=== PATIENT | female | born 1945 | race Caucasian/White ===

== ENCOUNTER → 2017-06-30 16:00 | Outpatient (CLI) | payer MEDICARE, OTHER, SELFPAY | PROVIDERS: Family Provider Family Medicine; PCP Family Medicine; Visit Provider Nurse Practitioner | DX: E10.9 Type 1 diabetes mellitus without complications (principal); E78.5 Hyperlipidemia, unspecified ==

== ENCOUNTER → 2017-07-02 09:11 | Outpatient (CLI) | payer MEDICARE, OTHER, SELFPAY ==
[2017-07-02 11:06] LABS: Microalbumin,Random Urine 11.5 mg/L (NO RANGE EST.); Microalbumin:Creatinine Ratio 30.1 mg/g CRE (<30 mg/g CRE)
[2017-07-02 11:10] LABS: Hemoglobin A1c 14.7 % (4.2-6.3)
[2017-07-02 11:20] LABS: AST(SGOT) 19 U/L (15-37); Alanine Aminotransfer ALT/SGPT 27 U/L (13-56); Albumin, Serum 3.5 g/dL (3.2-5.0); Alkaline Phosphatase 98 U/L (45-117); Anion Gap 9 (5-15); BUN 18 mg/dL (7-18); BUN/Creat Ratio 19.7 RATIO (10-20); Calcium,Total 8.9 mg/dL (8.5-10.1); Chloride 102 mmol/L (98-107); Cholesterol 189 mg/dL (200); Creatinine, Serum 0.91 mg/dL (0.55-1.02); EST Glomerular Filtration Rate 64 mL/min (>60); Est Glom Filt Rate - Afr Amer 78 mL/min (>60); Globulin 3.4 g/dL (2.2-4.2); Glucose 178 mg/dL (74-106); High Density Lipoprotein 92 mg/dL; Potassium 3.7 mmol/L (3.5-5.1); Protein, Total 6.9 g/dL (6.4-8.2); Sodium Level 138 mmol/L (136-145); Triglycerides 119 mg/dL; Very Low Density Lipoprotein 24 mg/dL (5-40)
== END ==
PROVIDERS: Family Provider Family Medicine; PCP Family Medicine; Visit Provider Nurse Practitioner
DX: E10.9 Type 1 diabetes mellitus without complications (principal); E78.5 Hyperlipidemia, unspecified
CPT/HCPCS: 36415; 80053; 80061; 82043; 82570; 83036

== ENCOUNTER → 2017-12-12 07:00 | Outpatient (CLI) | payer MEDICARE, OTHER, SELFPAY ==
[2017-12-12 09:34] LABS: Microalbumin,Random Urine 13.7 mg/L (NO RANGE EST.); Microalbumin:Creatinine Ratio 21.5 mg/g CRE (<30 mg/g CRE)
[2017-12-12 09:43] LABS: AST(SGOT) 20 U/L (15-37); Alanine Aminotransfer ALT/SGPT 29 U/L (13-56); Albumin, Serum 3.3 g/dL (3.2-5.0); Alkaline Phosphatase 88 U/L (45-117); Anion Gap 7 (5-15); BUN 15 mg/dL (7-18); BUN/Creat Ratio 18.3 RATIO (10-20); Calcium,Total 8.8 mg/dL (8.5-10.1); Chloride 107 mmol/L (98-107); Creatinine, Serum 0.82 mg/dL (0.55-1.02); EST Glomerular Filtration Rate 73 mL/min (>60); Est Glom Filt Rate - Afr Amer 88 mL/min (>60); Globulin 3.3 g/dL (2.2-4.2); Glucose 166 mg/dL (74-106); Protein, Total 6.6 g/dL (6.4-8.2); Sodium Level 140 mmol/L (136-145)
[2017-12-12 09:51] LABS: Hemoglobin A1c 13.2 % (4.2-6.3)
== END ==
PROVIDERS: Family Provider Family Medicine; PCP Family Medicine; Visit Provider Nurse Practitioner
DX: E11.9 Type 2 diabetes mellitus without complications (principal); E10.9 Type 1 diabetes mellitus without complications
CPT/HCPCS: 36415; 80053; 82043; 82570; 83036

== ENCOUNTER 2018-01-22 17:24 | Inpatient (IN) | payer MEDICARE, OTHER, SELFPAY ==
[2018-01-22] VITALS (29 sets, daily range): BP systolic 53–118; BP diastolic 28–64; PULSE 61–99; RESP 12–18; TEMP 28.5–33.7; O2SAT 91–100; BMI 27.3; BMI 23.9; BMI 27.4
[2018-01-22] MEDS: Rocuronium Bromide 50 MG/5 ML Vial 80 MG IV (17:29)
[2018-01-22] MEDS: Etomidate 20 MG/10 ML Vial IV (17:29)
--- NOTE | 2018-01-22 17:31 | EKG12_ITS ---
Test Reason : UNRESPONSIVE Blood Pressure : / mmHG Vent. Rate : 061 BPM Atrial Rate : 061 BPM P-R Int : 244 ms QRS Dur : 102 ms QT Int : 528 ms P-R-T Axes : 078 085 070 degrees QTc Int : 531 ms Sinus rhythm with 1st degree A-V block Cannot rule out Anterior infarct , age undetermined Prolonged QT Abnormal ECG Confirmed by DAMARI HANDY, QIAN ([id number]), newspaper photo editor DAWN PARHAM ([id number]) on 01/25/2018 2:54:35 PM Referred By: ZEKE Confirmed By:QAIN WETZEL MD
--- NOTE | 2018-01-22 17:32 | CT_ITS ---
STUDY: CT BRAIN WITHOUT CONTRAST REASON FOR EXAM: Female, 72 years old. Unresponsive. Stroke alert. RADIATION DOSAGE (If Supplied By Facility): CTDIvol = ( 44.99 ) mGy, DLP = ( 745.49 ) mGycm TECHNIQUE: Transaxial CT imaging of the brain was performed without administration of intravenous contrast material. Individualized dose optimization techniques were used for this CT. COMPARISON: None. FINDINGS: There is no acute bleed or infarct. There are chronic ischemic and atrophic changes. The ventricles are normal in configuration. There is no hydrocephalus. There is mild mucosal hypertrophy in the ethmoid sinuses and right frontal sinus. There is total opacification of the right maxillary sinus. The mastoid air cells are well aerated. There is no skull fracture. CT/Brain/Head without Contrast IMPRESSION: No acute intracranial abnormality. Chronic ischemic and atrophic changes. Sinusitis. N.B. : The above information has been verbally conveyed by Jd Johnson to Mathieu Barnes on 01/22/2018 18:04:53 (ET). Electronically Signed: Jd Johnson, at 18:04 EDT Tel , Service support ,
[2018-01-22 17:48] LABS: Hematocrit 39.8 % (37-47); Hemoglobin 11.1 g/dl (12.0-15.0); Mean Corp Hgb Conc 27.9 g/gl (32-36); Mean Corpuscular Hgb 30.3 pg (27.0-32.0); Mean Corpuscular Volume 108.7 fL (81-99); Mean Platelet Vol. 9.9 fl (6.2-12.0); Platelet Count 350 K/mm3 (150-450); RBC Distribution Width CV 14.4 % (11.6-14.6); RBC Distribution Width SD 57.2 fl (35.1-43.9); Red Blood Count 3.66 M/mm3 (4.2-5.4)
[2018-01-22 17:49] LABS: POSITIVE COUNT NO; POSITIVE DIFFERENTIAL NO; POSITIVE MORPHOLOGY NO
[2018-01-22 18:04] LABS: International Normalized Ratio 1.4; Prothrombin Time (Protime)PT. 17.1 SECONDS (11.7-14.9)
[2018-01-22] MEDS: 0.9% Normal Saline 1,000 ML 999 ML IV ×3 (18:11→18:28)
--- NOTE | 2018-01-22 18:15 | RAD_ITS ---
STUDY: X-RAY CHEST REASON FOR EXAM: Female, 72 years old. Intubation TECHNIQUE: Frontal view of the chest COMPARISON: 10/22/2014 FINDINGS: There is an endotracheal tube noted with its tip approximately 2 cm above the octavio. There is a right-sided central line with its tip in the superior vena cava. The enteric tube noted with its tip in the stomach. The lungs are clear. There are no pleural effusions. There is no pneumothorax. The heart is normal in size. The visualized osseous structures are within normal limits. RAD/Chest 1 View (Portable) IMPRESSION: Satisfactory position of the support lines and tubes. No acute thoracic pathology. Electronically Signed: Jd Johnson, at 18:58 EDT Tel , Service support ,
[2018-01-22 18:17] LABS: BUN 48 mg/dL (7-18); BUN/Creat Ratio 19.7 RATIO (10-20); Creatinine, Serum 2.44 mg/dL (0.55-1.02); EST Glomerular Filtration Rate 21 mL/min (>60); Est Glom Filt Rate - Afr Amer 25 mL/min (>60); Glucose 1143 mg/dL (74-106); Protein, Total 6.5 g/dL (6.4-8.2)
[2018-01-22 18:18] LABS: Mucous, Urine 0 SEEN /hpf (<or=2+); Red Blood Cells-Urine 0 SEEN /hpf (0-5)
[2018-01-22 18:18] LABS: ALB/GLOB Ratio 0.9 RATIO (0.9-2.4); AST(SGOT) 94 U/L (15-37); Alanine Aminotransfer ALT/SGPT 52 U/L (13-56); Alkaline Phosphatase 149 U/L (45-117); Anion Gap 29 (5-15); Calcium,Total 8.7 mg/dL (8.5-10.1); Chloride 96 mmol/L (98-107); Globulin 3.5 g/dL (2.2-4.2); Potassium 7.4 mmol/L (3.5-5.1); Sodium Level 130 mmol/L (136-145)
[2018-01-22 18:22] LABS: Color, Urine Yellow (Yellow); Glucose, Dipstick 1000 mg/dl (Normal); Leukocyte Esterase-Dipstick Negative /ul (Negative); Nitrite-Dipstick Negative (Negative); Occult Blood-Urine 250 /ul (Negative); Protein-Dipstick 30 mg/dl (Negative); Urine Bilirubin Dipstick Negative (Negative); Urine Clarity Clear (Clear); Urine Urobilinogen Normal (Normal)
[2018-01-22 18:34] LABS: CPK Total, Creatine Kinase 3020 U/L (26-192)
[2018-01-22 18:35] LABS: Base Excess < -30 mmol/L (-2 to +2); Bicarbonate 3.6 mmol/L (22-26); Blood Gas Specimen Type ART; FI02 100; Mode A-C; O2 Delivery Device Vent; PEEP 5; PO2 656 mmHG (75-100); RR 12; SITE L Femoral; SO2 100 % (95-99); Time Given 1815; Total Carbon Dioxide < 5 mmol/L; Vt 450; pCO2 31.4 mmHg (35-45); pH 6.67 (7.35-7.45)
[2018-01-22 18:37] LABS: Ketone-Dipstick 150 mg/dl (Negative)
[2018-01-22 18:40] LABS: Squamous Epithelial Cells - UA 0-5 SEEN /hpf (5-10); White Blood Cells 0-5 SEEN /hpf (0-5)
[2018-01-22 18:41] LABS: Amorphous Sediment 1+; Bacteria RARE /hpf (None Seen); Coarse Granular Cast 0-5 SEEN /lpf (0-5 /lpf)
[2018-01-22] MEDS: levoFLOXacin IV 500 MG/100 ML BAG 100 MG IV (18:51)
--- NOTE | 2018-01-22 19:18 | ED.RN ---
LAB CALLED WITH CRITICAL LAB RESULTS. LACTIC ACID 2.5. DR. ALANIS MADE AWARE. NO NEW ORDERS AT THIS TIME
[2018-01-22 19:19] LABS: Lactic Acid 2.5 mmol/L (0.4-2.0)
--- NOTE | 2018-01-22 19:27 | ED.VISSUMM ---
- ER Visit Summary Date of Service: 01/22/18 Chief Complaint: Unresponsive History of Present Illness: The patient is a 72 F who was last seen this morning around 0730. She was found this evening around 1700 hrs by family. She was unresponsive and seemed like she was agonal he breathing and they noted that she was mottled. EMS notes that she was hypothermic in the 80s on their temperature as well as having a blood sugar reading reading high. She is an insulin-dependent diabetic also with a history of upper cholesterolemia. Daughter states that unbeknownst to her until this evening her blood sugars have been running in the 4-500s for the past week. Physical Examination: Patient is hypotensive hypothermic at 82.3 via temperature sensitive fully. Gen: Well-nourished well-developed Head: Normocephalic atraumatic Eyes: Pupils are 4 mm and sluggishly reactive bilaterally ENT: TMs clear thick yellow nasal discharge from the right nares moist mucous membranes Neck: Supple no lymphadenopathy no JVD nontender CVS: Regular rate bradycardic rhythm no murmurs normal S1-S2 Respiratory: Kusmaul's respiration clear to auscultation bilaterally chest nontender Abdomen: Soft nontender nondistended normal bowel sounds no masses Back: Nontender Extremity: Nontender no edema Skin: Cold extremities with mottling erythema of the upper extremities and face Neuro: Patient is unresponsive. She withdraws to pain but does not localize Emergency Department Course and Treatment: EKG shows a sinus bradycardia at a rate of 61 with Anaya J waves. PH is 6.6. Blood sugar is greater than 1000. Evidence of acute kidney injury. Evidence of a mild rhabdomyolysis. Bicarbonate 3 on ABG. Initial potassium 7.4. Upon arrival in the emergency department patient underwent RSI using etomidate and rocuronium. A 7.5 endotracheal tube was placed on the first attempt without any difficulty and secured. Good color change and equal breath sounds bilaterally. Patient received warmed IV fluids (2.5 L bolus) followed by maintenance. She also was placed on a Stephy hugger. Patient was taken to the CT scanner where CT of the brain did not show any acute hemorrhage. Noted right maxillary sinusitis which coincides with the patient's physical exam findings despite the fluid bolus the patient continued to be hypotensive. A right IJ central line was placed under sterile ultrasound guidance obtained on the first attempt without any difficulty and sutured into place. There was noted venous bleeding around the wound and eventually hematoma. Chest x-ray confirms placement of endotracheal tube as well as OG tube and central line and line was approved for use. Patient continued received IV fluid. In review of the patient's chart from 2016 she developed DKA after an episode of pharyngitis. With the physical exam finding of sinusitis and the CT findings is probable the patient has been battling a sinusitis resulting in hyperglycemia over the past week leading to DKA today. Patient received Levaquin due to penicillin allergy for the sinusitis. She was started on insulin drip and started on levophed. Patient will be admitted into the hospital to the ICU. Impression: 1. Diabetic ketoacidosis 2. Right maxillary sinusitis 3. Hypothermia 4. Rhabdomyolysis 5. Acute kidney injury 6. Intubation 7. Central line by physician 8. Critical care time 35 minutes This note was generated with [employer] dictation software. It may contain incorrect words, spelling, and punctuation that were not noted in review of the chart prior to signing ED Disposition - Plan for ED Patient: Chief Complaint: Unresponsive
--- NOTE | 2018-01-22 19:31 | PCM.HP.STD ---
Problem List (1) Respiratory failure Status: Acute Qualifiers: Chronicity: acute Respiratory failure complication: unspecified whether with hypoxia or hypercapnia Qualified Code(s): J96.00 - Acute respiratory failure, unspecified whether with hypoxia or hypercapnia (2) Metabolic acidosis Status: Acute (3) DKA (diabetic ketoacidoses) Status: Acute Qualifiers: Diabetes mellitus type: type 1 (4) Hypothermia Status: Acute Qualifiers: Encounter type: initial encounter Qualified Code(s): T68.XXXA - Hypothermia, initial encounter (5) Sinusitis Status: Acute Qualifiers: Sinusitis location: maxillary (6) Hyperkalemia Status: Acute (7) Rhabdomyolysis Status: Acute Qualifiers: Rhabdomyolysis type: traumatic Encounter type: initial encounter Qualified Code(s): T79.6XXA - Traumatic ischemia of muscle, initial encounter History of Present Illness Date of Admission: 01/22/18 Chief Complaint: found down. The patient is a 72 year old F who was found down at home. Patient was seen at roughly 07 30 this morning walking her dog by her daughter. Then at 1600, the daughter came back to check on her and found the patient face down with her head propped up on her arms and patient was unresponsive. Patient's house was in [facility] and the patient had taken off her pants and underwear. Daughter states that when patient goes into DKA she does get confused and does bizarre behavior similar to this but is never been found unresponsive before. Patient was brought to the emergency room and was found to be hypothermic with an initial temperature of 28.5 Celsius. Patient had a bear hugger placed and temperature has improved slightly to 29.2 Celsius. Bear hugger was applied. Patient was also hypotensive and received 3 L of fluid but still remained hypotensive in the 60s. Patient did have a right IJ triple-lumen catheter placed and has been started on levo fed. Patient did have some purulence noted to come out of her right nares. Patient was found to have sinusitis on her head CT. Patient has not required any sedation outside of the etomidate that she had received for her rapid sequence intubation. Daughter states that the patient's blood sugars have been very poorly controlled in 4 and 500 range prior to this after reviewing the patient's blood sugar logs after the patient came into the hospital. 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 Allergies Iodinated Contrast- Oral and IV Dye [Iodinated Contrast Media - IV Dye] Allergy (Mild, Verified 12/10/17 09:35) Rash face/chest very red Penicillins Allergy (Unknown, Verified 12/10/17 09:35) mother told her she was allergic mother told her she was allergic Sulfa (Sulfonamide Antibiotics) Allergy (Unknown, Verified 12/10/17 09:35) mother told her she was allergic mother told her she was allergic Home Medications: Ambulatory Orders Medication Instructions Recorded Aspirin [Aspirin, Baby] 81 mg PO QHS 04/23/14 Humalog U- 100 Insulin 100 unit/mL See Rx Instructions SC .COMPLEX 11/26/17 subcutaneous solution #20 ml NS Lantus U- 100 Insulin 100 unit/mL 20 unit SC QHS #10 ml NS 11/26/17 subcutaneous solution enalapril maleate 20 mg tablet 20 mg PO QHS #30 tab 11/26/17 Simvastatin 80 mg PO QHS 01/22/18 Surgical History: Surgical History (Last Reviewed 01/22/18 @ 19:39 by Jamar Saxena DO) removal of mole - L lower leg Surgical History: hysterectomy Psychiatric History: No pertinent psych hx Smoking Status: Never smoker Tobacco Use: Non-smoker - *Family History Maternal Family History: Family History (Last Reviewed 01/22/18 @ 19:39 by Jamar Saxena DO) Mother Diabetes Heart disease History Items: Diabetes Review of Systems Unable to obtain accurate/complete ROS d/t: Patient intubated and sedated and unable to provide any history. VTE Information - Inpt Only VTE Present on Admission: No VTE Mechan Device Prophylaxis: SCD's VTE Pharm Prophylaxis ordered?: No Reason prophylaxis not ordered:: Medical Contraindication Patient Problems: Active and Suspected Problems (Last Reviewed 12/10/17 @ 09:30 by Vicki Dominguez) Respiratory failure (Acute) Metabolic acidosis (Acute) DKA (diabetic ketoacidoses) (Acute) Hypothermia (Acute) Sinusitis (Acute) Hyperkalemia (Acute) Rhabdomyolysis (Acute) - Physical Exam General: - - Unresponsive. On mechanical ventilator. HEENT: Atraumatic, Normocephalic, - - Pupils fixed but not dilated. Absent corneal reflex. Oral: Moist Mucosa, No Gingival or Mucosal Lesions/ Ulcerations, - - Endotracheal tube and orogastric tube in place. Neck: No Nodes, Thyroid Normal Size and Texture Lungs: Diminished, - - Coarse breath sounds bilaterally Cardiovascular: Regular rate, Regular Rhythm, Normal S1, Normal S2, No murmurs Abdomen: Bowel Sounds Present, Soft, Non Tender, Non-Distended, No Hepato-splenomegaly Extremities: No edema, No Calf Tenderness Skin: No rashes, No breakdown Musculoskeletal: No Tenderness to Palpation of Joints or Extremities, No Muscle Wasting Neurological: - - Absent corneal reflex. No hyperreflexia noted. Vital Signs Temp Pulse Resp BP Pulse Ox 29.2 C L 68 18 78/46 L 97 01/22/18 19:08 01/22/18 19:08 01/22/18 19:08 01/22/18 19:08 01/22/18 19:08 Oxygen Delivery Method Mechanical Ventilator Weight: 72.4 kg Body Mass Index (BMI) 27.3 Finger Stick Blood Glucose 500 Laboratory Tests Past 24 Hrs 01/22/18 01/22/18 01/22/18 17:31 17:31 17:31 WBC 15.0 H RBC 3.66 L Hgb 11.1 L Hct 39.8 MCV 108.7 H MCH 30.3 MCHC 27.9 L RDW 14.4 RDW Differential 57.2 H Plt Count 350 MPV 9.9 Neut % (Auto) Not Reportable Absolute Neuts (auto) Not Reportable Total Counted Not Reportable PT 17.1 H INR 1.4 Fibrinogen Specimen Type Sample Site pH Bicarbonate Actual POC Total CO2 Base Excess O2 Saturation O2 % ABG pCO2 ABG pO2 Boyd Test Respiration Rate O2 Delivery Device Vent Mode Tidal Volume POC PEEP Blood Gas Notified Whom Blood Gas Notified Time Sodium 130 L Potassium 7.4 H* Chloride 96 L Carbon Dioxide 5.0 L* Anion Gap 29 H BUN 48 H Creatinine 2.44 H Estim Creat Clear Calc 18.00 Est GFR (MDRD) Af Amer 25 L Est GFR (MDRD) Non-Af 21 L BUN/Creatinine Ratio 19.7 Glucose 1143 H* Lactic Acid Calcium 8.7 Magnesium Total Bilirubin 0.20 AST 94 H ALT 52 Alkaline Phosphatase 149 H Total Creatine Kinase Troponin I 0.087 H Total Protein 6.5 Albumin 3.0 L Globulin 3.5 Albumin/Globulin Ratio 0.9 TSH Urine Color Urine Clarity Urine pH Ur Specific [place] Urine Protein Urine Glucose (UA) Urine Ketones Urine Occult Blood Urine Nitrite Urine Bilirubin Urine Urobilinogen Ur Leukocyte Esterase Urine RBC Urine WBC Ur Squamous Epith Cells Amorphous Sediment Urine Bacteria Coarse Granular Casts Urine Mucus Acetone Level 01/22/18 01/22/18 01/22/18 17:31 17:31 17:31 WBC RBC Hgb Hct MCV MCH MCHC RDW RDW Differential Plt Count MPV Neut % (Auto) Absolute Neuts (auto) Total Counted PT INR Fibrinogen Specimen Type Sample Site pH Bicarbonate Actual POC Total CO2 Base Excess O2 Saturation O2 % ABG pCO2 ABG pO2 Boyd Test Respiration Rate O2 Delivery Device Vent Mode Tidal Volume POC PEEP Blood Gas Notified Whom Blood Gas Notified Time Sodium Potassium Chloride Carbon Dioxide Anion Gap BUN Creatinine Estim Creat Clear Calc Est GFR (MDRD) Af Amer Est GFR (MDRD) Non-Af BUN/Creatinine Ratio Glucose Lactic Acid Cancelled Calcium Magnesium 4.0 H Total Bilirubin AST ALT Alkaline Phosphatase Total Creatine Kinase 3020 H Troponin I Total Protein Albumin Globulin Albumin/Globulin Ratio TSH Urine Color Urine Clarity Urine pH Ur Specific [place] Urine Protein Urine Glucose (UA) Urine Ketones Urine Occult Blood Urine Nitrite Urine Bilirubin Urine Urobilinogen Ur Leukocyte Esterase Urine RBC Urine WBC Ur Squamous Epith Cells Amorphous Sediment Urine Bacteria Coarse Granular Casts Urine Mucus Acetone Level 01/22/18 01/22/18 01/22/18 18:08 18:21 18:30 WBC RBC Hgb Hct MCV MCH MCHC RDW RDW Differential Plt Count MPV Neut % (Auto) Absolute Neuts (auto) Total Counted PT INR Fibrinogen Specimen Type ART Sample Site L Femoral pH 6.67 L* Bicarbonate Actual 3.6 L POC Total CO2 < 5 Base Excess < -30 L O2 Saturation 100 H O2 % 100 ABG pCO2 31.4 L ABG pO2 656 H* Boyd Test NA Respiration Rate 12 O2 Delivery Device Vent Vent Mode A-C Tidal Volume 450 POC PEEP 5 Blood Gas Notified Whom ED MD Blood Gas Notified Time 1815 Sodium Potassium Chloride Carbon Dioxide Anion Gap BUN Creatinine Estim Creat Clear Calc Est GFR (MDRD) Af Amer Est GFR (MDRD) Non-Af BUN/Creatinine Ratio Glucose Lactic Acid Calcium Magnesium Total Bilirubin AST ALT Alkaline Phosphatase Total Creatine Kinase Troponin I Total Protein Albumin Globulin Albumin/Globulin Ratio TSH Urine Color Yellow Urine Clarity Clear Urine pH 5.0 Ur Specific [place] 1.020 Urine Protein 30 H Urine Glucose (UA) 1000 H Urine Ketones 150 H Urine Occult Blood 250 H Urine Nitrite Negative Urine Bilirubin Negative Urine Urobilinogen Normal Ur Leukocyte Esterase Negative Urine RBC 0 SEEN Urine WBC 0-5 SEEN Ur Squamous Epith Cells 0-5 SEEN Amorphous Sediment 1+ Urine Bacteria RARE Coarse Granular Casts 0-5 SEEN Urine Mucus 0 SEEN Acetone Level MODERATE H 01/22/18 01/22/18 01/22/18 18:30 18:30 18:30 WBC RBC Hgb Hct MCV MCH MCHC RDW RDW Differential Plt Count MPV Neut % (Auto) Absolute Neuts (auto) Total Counted PT INR Fibrinogen Pending Specimen Type Sample Site pH Bicarbonate Actual POC Total CO2 Base Excess O2 Saturation O2 % ABG pCO2 ABG pO2 Boyd Test Respiration Rate O2 Delivery Device Vent Mode Tidal Volume POC PEEP Blood Gas Notified Whom Blood Gas Notified Time Sodium Potassium Chloride Carbon Dioxide Anion Gap BUN Creatinine Estim Creat Clear Calc Est GFR (MDRD) Af Amer Est GFR (MDRD) Non-Af BUN/Creatinine Ratio Glucose Lactic Acid 2.5 H Calcium Magnesium Total Bilirubin AST ALT Alkaline Phosphatase Total Creatine Kinase Troponin I Total Protein Albumin Globulin Albumin/Globulin Ratio TSH Pending Urine Color Urine Clarity Urine pH Ur Specific Mer[place]old Urine Protein Urine Glucose (UA) Urine Ketones Urine Occult Blood Urine Nitrite Urine Bilirubin Urine Urobilinogen Ur Leukocyte Esterase Urine RBC Urine WBC Ur Squamous Epith Cells Amorphous Sediment Urine Bacteria Coarse Granular Casts Urine Mucus Acetone Level Assessment/Plan All Active Problems (Last Reviewed 12/10/17 @ 09:30 by Vicki Dominguez) Respiratory failure (Acute) Metabolic acidosis (Acute) DKA (diabetic ketoacidoses) (Acute) Hypothermia (Acute) Sinusitis (Acute) Hyperkalemia (Acute) Rhabdomyolysis (Acute) DKA, type 1 (Acute) UTI (urinary tract infection) (Acute) 1. Presumed hypovolemic shock IV fluids On levophed 2. Metabolic encephalopathy May be related the patient's diabetic ketoacidosis, sinusitis Given the fact the patient was found down, cannot rule out anoxic encephalopathy Patient currently not on any sedation at this time but may need to be introduced at a later point if the patient does improve Consider EEG if no improvement 3. Diabetic ketoacidosis On insulin drip per DKA protocol Resume basal insulin once gap has been closed x2 Per the patient's daughter, on reviewing the patient's home logs, patient was having consistent blood sugars in the 4-500 range 4. Respiratory failure ABG consistent with metabolic acidosis with dominant respiratory acidosis. Patient was not noted to be hypoxic is not in the vital signs. ABG did not show any hypercapnia Patient intubated for airway protection. 5. Rhabdomyolysis Secondary to being down for up to potentially 8.5 hours IV fluids Reevaluate CPK 6. Metabolic acidosis Secondary to DKA and possible other medical derangements Follow-up lactic acid IV fluids and treat the underlying etiologies. 7. Hyperkalemia At least partially due to the patient's DKA and metabolic acidosis Follow-up serial BMPs Hold off on corrections at this time pending resolution of the acidosis 8. Sinusitis Total opacification of the right maxillary sinus Continue with Levaquin 9. Possible coagulopathy INR was 1.4 without her being on Coumadin Fibrinogen was normal Check d-dimer Concern is for underlying DIC There is some concern for some blood in her orogastric tube but will monitor her hemoglobin. 10. DVT prophylaxis with SCDs. Hold off on chemical prophylaxis concern for potential GI bleed and potential coagulopathy. 11. Prognosis guarded 12. Advanced care planning: Discussed with the patient's daughter, and expressed that the patient's prognosis is very guarded this time. She expressed understanding of that. Asked about CODE STATUS and states that the patient is DNR Comfort Care arrest. Tentative plan at this point time is to see the patient does overnight and see if there is been any noticeable improvements but if not then there may be additional conversations and nurse to hospice. The patient's daughter is an [employer] with hospice. Code Visit Inpatient E&M: 52079 Init Hosp L3
[2018-01-22 19:32] LABS: Thyroid Stim Hormone (TSH) 1.17 uIU/mL (0.358-3.74)
--- NOTE | 2018-01-22 19:36 | HP.PCM_ITS ---
Problem List (1) Respiratory failure Status: Acute Qualifiers: Chronicity: acute Respiratory failure complication: unspecified whether with hypoxia or hypercapnia Qualified Code(s): J96.00 - Acute respiratory failure, unspecified whether with hypoxia or hypercapnia (2) Metabolic acidosis Status: Acute (3) DKA (diabetic ketoacidoses) Status: Acute Qualifiers: Diabetes mellitus type: type 1 (4) Hypothermia Status: Acute Qualifiers: Encounter type: initial encounter Qualified Code(s): T68.XXXA - Hypothermia, initial encounter (5) Sinusitis Status: Acute Qualifiers: Sinusitis location: maxillary (6) Hyperkalemia Status: Acute (7) Rhabdomyolysis Status: Acute Qualifiers: Rhabdomyolysis type: traumatic Encounter type: initial encounter Qualified Code(s): T79.6XXA - Traumatic ischemia of muscle, initial encounter History of Present Illness Date of Admission: 01/22/18 Chief Complaint: found down. The patient is a 72 year old F who was found down at home. Patient was seen at roughly 07 30 this morning walking her dog by her daughter. Then at 1600, the daughter came back to check on her and found the patient face down with her head propped up on her arms and patient was unresponsive. Patient's house was in [facility] and the patient had taken off her pants and underwear. Daughter states that when patient goes into DKA she does get confused and does bizarre behavior similar to this but is never been found unresponsive before. Patient was brought to the emergency room and was found to be hypothermic with an initial temperature of 28.5 Celsius. Patient had a bear hugger placed and temperature has improved slightly to 29.2 Celsius. Bear hugger was applied. Patient was also hypotensive and received 3 L of fluid but still remained hypotensive in the 60s. Patient did have a right IJ triple-lumen catheter placed and has been started on levo fed. Patient did have some purulence noted to come out of her right nares. Patient was found to have sinusitis on her head CT. Patient has not required any sedation outside of the etomidate that she had received for her rapid sequence intubation. Daughter states that the patient's blood sugars have been very poorly controlled in 4 and 500 range prior to this after reviewing the patient's blood sugar logs after the patient came into the hospital. 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 Allergies Iodinated Contrast- Oral and IV Dye [Iodinated Contrast Media - IV Dye] Allergy (Mild, Verified 12/10/17 09:35) Rash face/chest very red Penicillins Allergy (Unknown, Verified 12/10/17 09:35) mother told her she was allergic mother told her she was allergic Sulfa (Sulfonamide Antibiotics) Allergy (Unknown, Verified 12/10/17 09:35) mother told her she was allergic mother told her she was allergic Home Medications: Ambulatory Orders Medication Instructions Recorded Aspirin [Aspirin, Baby] 81 mg PO QHS 04/23/14 Humalog U- 100 Insulin 100 unit/mL See Rx Instructions SC .COMPLEX 11/26/17 subcutaneous solution #20 ml NS Lantus U- 100 Insulin 100 unit/mL 20 unit SC QHS #10 ml NS 11/26/17 subcutaneous solution enalapril maleate 20 mg tablet 20 mg PO QHS #30 tab 11/26/17 Simvastatin 80 mg PO QHS 01/22/18 Surgical History: Surgical History (Last Reviewed 01/22/18 @ 19:39 by Jamar Saxena DO) removal of mole - L lower leg Surgical History: hysterectomy Psychiatric History: No pertinent psych hx Smoking Status: Never smoker Tobacco Use: Non-smoker - *Family History Maternal Family History: Family History (Last Reviewed 01/22/18 @ 19:39 by Jamar Saxena DO) Mother Diabetes Heart disease History Items: Diabetes Review of Systems Unable to obtain accurate/complete ROS d/t: Patient intubated and sedated and unable to provide any history. VTE Information - Inpt Only VTE Present on Admission: No VTE Mechan Device Prophylaxis: SCD's VTE Pharm Prophylaxis ordered?: No Reason prophylaxis not ordered:: Medical Contraindication Patient Problems: Active and Suspected Problems (Last Reviewed 12/10/17 @ 09:30 by Vicki Dominguez) Respiratory failure (Acute) Metabolic acidosis (Acute) DKA (diabetic ketoacidoses) (Acute) Hypothermia (Acute) Sinusitis (Acute) Hyperkalemia (Acute) Rhabdomyolysis (Acute) - Physical Exam General: - - Unresponsive. On mechanical ventilator. HEENT: Atraumatic, Normocephalic, - - Pupils fixed but not dilated. Absent corneal reflex. Oral: Moist Mucosa, No Gingival or Mucosal Lesions/ Ulcerations, - - Endotracheal tube and orogastric tube in place. Neck: No Nodes, Thyroid Normal Size and Texture Lungs: Diminished, - - Coarse breath sounds bilaterally Cardiovascular: Regular rate, Regular Rhythm, Normal S1, Normal S2, No murmurs Abdomen: Bowel Sounds Present, Soft, Non Tender, Non-Distended, No Hepato- splenomegaly Extremities: No edema, No Calf Tenderness Skin: No rashes, No breakdown Musculoskeletal: No Tenderness to Palpation of Joints or Extremities, No Muscle Wasting Neurological: - - Absent corneal reflex. No hyperreflexia noted. Vital Signs Temp Pulse Resp BP Pulse Ox 29.2 C L 68 18 78/46 L 97 01/22/18 19:08 01/22/18 19:08 01/22/18 19:08 01/22/18 19:08 01/22/18 19:08 Oxygen Delivery Method Mechanical Ventilator Weight: 72.4 kg Body Mass Index (BMI) 27.3 Finger Stick Blood Glucose 500 Laboratory Tests Past 24 Hrs 01/22/18 01/22/18 01/22/18 17:31 17:31 17:31 WBC 15.0 H RBC 3.66 L Hgb 11.1 L Hct 39.8 MCV 108.7 H MCH 30.3 MCHC 27.9 L RDW 14.4 RDW Differential 57.2 H Plt Count 350 MPV 9.9 Neut % (Auto) Not Reportable Absolute Neuts (auto) Not Reportable Total Counted Not Reportable PT 17.1 H INR 1.4 Fibrinogen Specimen Type Sample Site pH Bicarbonate Actual POC Total CO2 Base Excess O2 Saturation O2 % ABG pCO2 ABG pO2 Boyd Test Respiration Rate O2 Delivery Device Vent Mode Tidal Volume POC PEEP Blood Gas Notified Whom Blood Gas Notified Time Sodium 130 L Potassium 7.4 H* Chloride 96 L Carbon Dioxide 5.0 L* Anion Gap 29 H BUN 48 H Creatinine 2.44 H Estim Creat Clear Calc 18.00 Est GFR (MDRD) Af Amer 25 L Est GFR (MDRD) Non-Af 21 L BUN/Creatinine Ratio 19.7 Glucose 1143 H* Lactic Acid Calcium 8.7 Magnesium Total Bilirubin 0.20 AST 94 H ALT 52 Alkaline Phosphatase 149 H Total Creatine Kinase Troponin I 0.087 H Total Protein 6.5 Albumin 3.0 L Globulin 3.5 Albumin/Globulin Ratio 0.9 TSH Urine Color Urine Clarity Urine pH Ur Specific [place] Urine Protein Urine Glucose (UA) Urine Ketones Urine Occult Blood Urine Nitrite Urine Bilirubin Urine Urobilinogen Ur Leukocyte Esterase Urine RBC Urine WBC Ur Squamous Epith Cells Amorphous Sediment Urine Bacteria Coarse Granular Casts Urine Mucus Acetone Level 01/22/18 01/22/18 01/22/18 17:31 17:31 17:31 WBC RBC Hgb Hct MCV MCH MCHC RDW RDW Differential Plt Count MPV Neut % (Auto) Absolute Neuts (auto) Total Counted PT INR Fibrinogen Specimen Type Sample Site pH Bicarbonate Actual POC Total CO2 Base Excess O2 Saturation O2 % ABG pCO2 ABG pO2 Boyd Test Respiration Rate O2 Delivery Device Vent Mode Tidal Volume POC PEEP Blood Gas Notified Whom Blood Gas Notified Time Sodium Potassium Chloride Carbon Dioxide Anion Gap BUN Creatinine Estim Creat Clear Calc Est GFR (MDRD) Af Amer Est GFR (MDRD) Non-Af BUN/Creatinine Ratio Glucose Lactic Acid Cancelled Calcium Magnesium 4.0 H Total Bilirubin AST ALT Alkaline Phosphatase Total Creatine Kinase 3020 H Troponin I Total Protein Albumin Globulin Albumin/Globulin Ratio TSH Urine Color Urine Clarity Urine pH Ur Specific [place] Urine Protein Urine Glucose (UA) Urine Ketones Urine Occult Blood Urine Nitrite Urine Bilirubin Urine Urobilinogen Ur Leukocyte Esterase Urine RBC Urine WBC Ur Squamous Epith Cells Amorphous Sediment Urine Bacteria Coarse Granular Casts Urine Mucus Acetone Level 01/22/18 01/22/18 01/22/18 18:08 18:21 18:30 WBC RBC Hgb Hct MCV MCH MCHC RDW RDW Differential Plt Count MPV Neut % (Auto) Absolute Neuts (auto) Total Counted PT INR Fibrinogen Specimen Type ART Sample Site L Femoral pH 6.67 L* Bicarbonate Actual 3.6 L POC Total CO2 < 5 Base Excess < -30 L O2 Saturation 100 H O2 % 100 ABG pCO2 31.4 L ABG pO2 656 H* Boyd Test NA Respiration Rate 12 O2 Delivery Device Vent Vent Mode A-C Tidal Volume 450 POC PEEP 5 Blood Gas Notified Whom ED MD Blood Gas Notified Time 1815 Sodium Potassium Chloride Carbon Dioxide Anion Gap BUN Creatinine Estim Creat Clear Calc Est GFR (MDRD) Af Amer Est GFR (MDRD) Non-Af BUN/Creatinine Ratio Glucose Lactic Acid Calcium Magnesium Total Bilirubin AST ALT Alkaline Phosphatase Total Creatine Kinase Troponin I Total Protein Albumin Globulin Albumin/Globulin Ratio TSH Urine Color Yellow Urine Clarity Clear Urine pH 5.0 Ur Specific [place] 1.020 Urine Protein 30 H Urine Glucose (UA) 1000 H Urine Ketones 150 H Urine Occult Blood 250 H Urine Nitrite Negative Urine Bilirubin Negative Urine Urobilinogen Normal Ur Leukocyte Esterase Negative Urine RBC 0 SEEN Urine WBC 0-5 SEEN Ur Squamous Epith Cells 0-5 SEEN Amorphous Sediment 1+ Urine Bacteria RARE Coarse Granular Casts 0-5 SEEN Urine Mucus 0 SEEN Acetone Level MODERATE H 01/22/18 01/22/18 01/22/18 18:30 18:30 18:30 WBC RBC Hgb Hct MCV MCH MCHC RDW RDW Differential Plt Count MPV Neut % (Auto) Absolute Neuts (auto) Total Counted PT INR Fibrinogen Pending Specimen Type Sample Site pH Bicarbonate Actual POC Total CO2 Base Excess O2 Saturation O2 % ABG pCO2 ABG pO2 Boyd Test Respiration Rate O2 Delivery Device Vent Mode Tidal Volume POC PEEP Blood Gas Notified Whom Blood Gas Notified Time Sodium Potassium Chloride Carbon Dioxide Anion Gap BUN Creatinine Estim Creat Clear Calc Est GFR (MDRD) Af Amer Est GFR (MDRD) Non-Af BUN/Creatinine Ratio Glucose Lactic Acid 2.5 H Calcium Magnesium Total Bilirubin AST ALT Alkaline Phosphatase Total Creatine Kinase Troponin I Total Protein Albumin Globulin Albumin/Globulin Ratio TSH Pending Urine Color Urine Clarity Urine pH Ur Specific [place] Urine Protein Urine Glucose (UA) Urine Ketones Urine Occult Blood Urine Nitrite Urine Bilirubin Urine Urobilinogen Ur Leukocyte Esterase Urine RBC Urine WBC Ur Squamous Epith Cells Amorphous Sediment Urine Bacteria Coarse Granular Casts Urine Mucus Acetone Level Assessment/Plan All Active Problems (Last Reviewed 12/10/17 @ 09:30 by Vicki Dominguez) Respiratory failure (Acute) Metabolic acidosis (Acute) DKA (diabetic ketoacidoses) (Acute) Hypothermia (Acute) Sinusitis (Acute) Hyperkalemia (Acute) Rhabdomyolysis (Acute) DKA, type 1 (Acute) UTI (urinary tract infection) (Acute) 1. Presumed hypovolemic shock * IV fluids * On levophed 2. Metabolic encephalopathy * May be related the patient's diabetic ketoacidosis, sinusitis * Given the fact the patient was found down, cannot rule out anoxic encephalopathy * Patient currently not on any sedation at this time but may need to be introduced at a later point if the patient does improve * Consider EEG if no improvement 3. Diabetic ketoacidosis * On insulin drip per DKA protocol * Resume basal insulin once gap has been closed x2 * Per the patient's daughter, on reviewing the patient's home logs, patient was having consistent blood sugars in the 4-500 range 4. Respiratory failure * ABG consistent with metabolic acidosis with dominant respiratory acidosis. * Patient was not noted to be hypoxic is not in the vital signs. ABG did not show any hypercapnia * Patient intubated for airway protection. 5. Rhabdomyolysis * Secondary to being down for up to potentially 8.5 hours * IV fluids * Reevaluate CPK 6. Metabolic acidosis * Secondary to DKA and possible other medical derangements * Follow-up lactic acid * IV fluids and treat the underlying etiologies. 7. Hyperkalemia * At least partially due to the patient's DKA and metabolic acidosis * Follow-up serial BMPs * Hold off on corrections at this time pending resolution of the acidosis 8. Sinusitis * Total opacification of the right maxillary sinus * Continue with Levaquin 9. Possible coagulopathy * INR was 1.4 without her being on Coumadin * Fibrinogen was normal * Check d-dimer * Concern is for underlying DIC * There is some concern for some blood in her orogastric tube but will monitor her hemoglobin. 10. DVT prophylaxis with SCDs. Hold off on chemical prophylaxis concern for potential GI bleed and potential coagulopathy. 11. Prognosis guarded 12. Advanced care planning: Discussed with the patient's daughter, and expressed that the patient's prognosis is very guarded this time. She expressed understanding of that. Asked about CODE STATUS and states that the patient is DNR Comfort Care arrest. Tentative plan at this point time is to see the patient does overnight and see if there is been any noticeable improvements but if not then there may be additional conversations and nurse to hospice. The patient's daughter is an HALL COORDINATOR with hospice. Code Visit Inpatient E&M: 28162 Init Hosp L3
[2018-01-22 19:39] LABS: Fibrinogen 318 mg/dl (203-444)
[2018-01-22 19:45] LABS: Bedside Glucose > 500 mg/dL (70-110)
[2018-01-22 20:23] LABS: D-Dimer Quantitative (DVT/PE) 0.79 FEU/ug/m (0.27-0.49)
[2018-01-22 20:49] LABS: Anion Gap 26 (5-15); BUN 45 mg/dL (7-18); BUN/Creat Ratio 20.8 RATIO (10-20); Calcium,Total 7.2 mg/dL (8.5-10.1); Chloride 106 mmol/L (98-107); Creatinine, Serum 2.16 mg/dL (0.55-1.02); EST Glomerular Filtration Rate 24 mL/min (>60); Est Glom Filt Rate - Afr Amer 29 mL/min (>60); Estimated Creatinine Clearance 20.33 ml/min; Glucose 929 mg/dL (74-106); Potassium 6.4 mmol/L (3.5-5.1); Sodium Level 136 mmol/L (136-145)
[2018-01-22 20:52] LABS: Hemoglobin A1c 14.2 % (4.2-6.3)
[2018-01-22] MEDS: Lactated Ringers 1,000 ML 999 ML IV (21:10)
[2018-01-22 21:59] LABS: Glucose 886 mg/dL (74-106)
[2018-01-22] MEDS: Chlorhexidine 15 ML PO (21:59)
[2018-01-22 22:06] LABS: Bedside Glucose > 500 mg/dL (70-110)
[2018-01-22 22:06] LABS: Bedside Glucose > 500 mg/dL (70-110)
[2018-01-22] MEDS: Albuterol 2.5 MG/3 ML VIAL.NEB. INHALATION (22:59)
[2018-01-22 23:27] LABS: M R Staph aureus DNA By PCR Negative (Negative); Probe Check PASS; Specimen Processing Control PASS
[2018-01-22 23:41] LABS: Bedside Glucose > 500 mg/dL (70-110)
[2018-01-23] VITALS (91 sets, daily range): BP systolic 85–142; BP diastolic 40–111; PULSE 80–112; RESP 14–29; TEMP 34.6–38.3; O2SAT 98–100
[2018-01-23 00:01] LABS: Glucose 773 mg/dL (74-106)
[2018-01-23 00:33] LABS: Anion Gap 24 (5-15); BUN 46 mg/dL (7-18); BUN/Creat Ratio 21.8 RATIO (10-20); Calcium,Total 7.2 mg/dL (8.5-10.1); Chloride 108 mmol/L (98-107); Creatinine, Serum 2.11 mg/dL (0.55-1.02); EST Glomerular Filtration Rate 24 mL/min (>60); Est Glom Filt Rate - Afr Amer 30 mL/min (>60); Estimated Creatinine Clearance 20.81 ml/min; Glucose 744 mg/dL (74-106); Potassium 6.1 mmol/L (3.5-5.1); Sodium Level 138 mmol/L (136-145)
[2018-01-23 00:44] LABS: Lactic Acid 1.6 mmol/L (0.4-2.0)
[2018-01-23 01:25] LABS: Glucose 713 mg/dL (74-106)
[2018-01-23 01:42] LABS: CPK Total, Creatine Kinase 13894 U/L (26-192)
[2018-01-23] MEDS: 0.9% Normal Saline 1,000 ML 150 ML IV (01:54)
[2018-01-23] MEDS: Albuterol 2.5 MG/3 ML VIAL.NEB. INHALATION ×2 (02:39→06:29)
[2018-01-23 03:16] LABS: Hematocrit 36.8 % (37-47); Hemoglobin 11.3 g/dl (12.0-15.0); Mean Corp Hgb Conc 30.7 g/gl (32-36); Mean Corpuscular Hgb 29.9 pg (27.0-32.0); Mean Corpuscular Volume 97.4 fL (81-99); Mean Platelet Vol. 8.9 fl (6.2-12.0); Platelet Count 282 K/mm3 (150-450); RBC Distribution Width CV 13.9 % (11.6-14.6); RBC Distribution Width SD 50.2 fl (35.1-43.9); Red Blood Count 3.78 M/mm3 (4.2-5.4); Scan Indicated on CBC? Y/N NO; White Blood Count 11.4 K/mm3 (4.4-11.0)
[2018-01-23 03:31] LABS: Base Excess -26 mmol/L (-2 to +2); Bicarbonate 5.6 mmol/L (22-26); Blood Gas Specimen Type ART; FI02 25; Mode A-C; O2 Delivery Device Vent; PEEP 5; PO2 122 mmHG (75-100); RR 14; SITE L Radial; SO2 96 % (95-99); Time Given 321; Total Carbon Dioxide 6 mmol/L; Vt 450; pCO2 24.4 mmHg (35-45); pH 6.97 (7.35-7.45)
[2018-01-23 03:34] LABS: Anion Gap 23 (5-15); BUN 50 mg/dL (7-18); BUN/Creat Ratio 21.2 RATIO (10-20); Calcium,Total 7.3 mg/dL (8.5-10.1); Chloride 109 mmol/L (98-107); Creatinine, Serum 2.36 mg/dL (0.55-1.02); EST Glomerular Filtration Rate 22 mL/min (>60); Est Glom Filt Rate - Afr Amer 26 mL/min (>60); Estimated Creatinine Clearance 18.61 ml/min; Glucose 680 mg/dL (74-106); Potassium 5.9 mmol/L (3.5-5.1); Sodium Level 140 mmol/L (136-145)
[2018-01-23] MEDS: Sodium Bicarbonate 8.4% 50 ML Syringe 50 MEQ IV (04:02)
[2018-01-23 05:00] LABS: Bedside Glucose > 500 mg/dL (70-110)
[2018-01-23 06:01] LABS: Base Excess < -30 mmol/L (-2 to +2); Bicarbonate 2.7 mmol/L (22-26); Blood Gas Specimen Type ART; FI02 35; Mode A-C; O2 Delivery Device Vent; PEEP 5; PO2 223 mmHG (75-100); RR 14; SITE L Brachial; SO2 98 % (95-99); Time Given 2020; Total Carbon Dioxide < 5 mmol/L; Vt 450; pCO2 25.1 mmHg (35-45); pH 6.65 (7.35-7.45)
[2018-01-23 06:26] LABS: Bedside Glucose > 500 mg/dL (70-110)
[2018-01-23 06:26] LABS: Bedside Glucose > 500 mg/dL (70-110)
--- NOTE | 2018-01-23 06:43 | PCM.CON.CC ---
Reason for Consult Date of Consultation: 01/23/18 Reason for Consultation: Respiratory failure/septic shock History of Present Illness: The patient is a 72-year-old female, with a history as outlined below, who presented to the emergency department on January 22 after being found unresponsive by family members. The patient has a known history of exceedingly poorly controlled insulin-dependent diabetes mellitus, with a hemoglobin A1c of 14. History pertinent to the patient's hospitalization was obtained primarily via chart review, as the patient is currently intubated and there are no family members available at the bedside. On presentation to the emergency department, the patient was noted to be hypothermic with a temperature of 83 ?F. She was hypotensive with a blood pressure of 64/39 and hypoxic. She was noted to have agonal respirations. Initial laboratory evaluation revealed elevated white blood cell count of 15,000. Arterial blood gas revealed a pH of 6.67 with a corresponding PCO2 of 31 and PO2 of 656, after intubation. Chemistry profile revealed a sodium of 130, potassium of 7.4, bicarbonate of 5.0 and acute kidney injury with a creatinine of 2.4. Glucose was elevated to 1143. Serum lactate was elevated to 2.5. Initial troponin was elevated at 0.087. CK was also elevated to 3020. There was a moderate serum acetone level. Due to the patient's tenuous respiratory status and altered mentation, she was emergently intubated in the emergency department. She received supplemental IV fluid hydration, was placed on a Stephy hugger and a central line was placed. CT head revealed no acute intracranial pathology, with the exception of evidence of maxillary sinusitis. Initial plain film chest x-ray revealed no acute cardiopulmonary process. The patient was placed on empiric antibiotics and vasopressor support was initiated after the patient was noted to have persistent non-fluid responsive hypotension. 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 Allergies Iodinated Contrast- Oral and IV Dye [Iodinated Contrast Media - IV Dye] Allergy (Mild, Verified 12/10/17 09:35) Rash face/chest very red Penicillins Allergy (Unknown, Verified 12/10/17 09:35) mother told her she was allergic mother told her she was allergic Sulfa (Sulfonamide Antibiotics) Allergy (Unknown, Verified 12/10/17 09:35) mother told her she was allergic mother told her she was allergic Home Medications: Ambulatory Orders Medication Instructions Recorded Aspirin [Aspirin, Baby] 81 mg PO QHS 04/23/14 Humalog U- 100 Insulin 100 unit/mL See Rx Instructions SC .COMPLEX 11/26/17 subcutaneous solution #20 ml NS Lantus U- 100 Insulin 100 unit/mL 20 unit SC QHS #10 ml NS 11/26/17 subcutaneous solution enalapril maleate 20 mg tablet 20 mg PO QHS #30 tab 11/26/17 Simvastatin 80 mg PO QHS 01/22/18 Surgical History: Surgical History (Last Reviewed 01/22/18 @ 19:39 by Jamar Saxena DO) removal of mole - L lower leg Surgical History: hysterectomy Psychiatric History: No pertinent psych hx Smoking Status: Never smoker Tobacco Use: Non-smoker - *Family History Maternal Family History: Family History (Last Reviewed 01/22/18 @ 19:39 by Jamar Saxena DO) Mother Diabetes Heart disease History Items: Diabetes Patient Problems: Active and Suspected Problems (Last Reviewed 01/22/18 @ 19:39 by Jamar Saxena DO) Respiratory failure (Acute) Metabolic acidosis (Acute) DKA (diabetic ketoacidoses) (Acute) Hypothermia (Acute) Sinusitis (Acute) Hyperkalemia (Acute) Rhabdomyolysis (Acute) Objective: The patient's most recent lab work, culture data and imaging studies have all been personally reviewed. Blood and urine cultures are currently pending. - Physical Exam General: - - Currently intubated, sedated and mechanically ventilated. HEENT: Atraumatic, PERRLA, Normocephalic Oral: No Gingival or Mucosal Lesions/ Ulcerations, - - Endotracheal and OG tubes in place. Neck: Supple, No Nodes, Trachea Midline, - - Right IJ central venous catheter in place Lungs: - - Clear across anterior lung nava. Cardiovascular: Normal S1, Normal S2, No murmurs, Tachycardic Abdomen: Bowel Sounds Present, Soft, Non Tender Extremities: No clubbing, No cyanosis, No edema Skin: No breakdown Musculoskeletal: No Tenderness to Palpation of Joints or Extremities Lymphatic: No Cervical, Supraclavicular, or Inguinal Adenopathy Neurological: - - No focal neurological deficits. Currently sedated. Attempts to move extremities. Vital Signs Temp Pulse Resp BP Pulse Ox 99.2 F H 107 H 23 H 131/54 H 100 01/23/18 06:00 01/23/18 06:30 01/23/18 06:30 01/23/18 06:30 01/23/18 06:30 Oxygen Delivery Method Mechanical Ventilator Weight: 145 lb 11.609 oz Body Mass Index (BMI) 23.9 Finger Stick Blood Glucose 595 Intake and Output for Last 24 Hours 01/21/18 01/22/18 01/23/18 23:59 23:59 23:59 Intake Total 2830.3 / 2830.3 Output Total 1400 / 1400 Balance 1430.3 / 1430.3 Laboratory Tests Past 24 Hrs 01/22/18 01/22/18 01/22/18 17:31 17:31 17:31 WBC 15.0 H RBC 3.66 L Hgb 11.1 L Hct 39.8 MCV 108.7 H MCH 30.3 MCHC 27.9 L RDW 14.4 RDW Differential 57.2 H Plt Count 350 MPV 9.9 Neut % (Auto) Not Reportable Absolute Neuts (auto) Not Reportable Total Counted Not Reportable PT 17.1 H INR 1.4 Fibrinogen D-Dimer Quant (PE/DVT) Specimen Type Sample Site pH Bicarbonate Actual POC Total CO2 Base Excess O2 Saturation O2 % ABG pCO2 ABG pO2 Boyd Test Respiration Rate O2 Delivery Device Minute Volume Vent Mode Tidal Volume POC PEEP Blood Gas Notified Whom Blood Gas Notified Time Sodium 130 L Potassium 7.4 H* Chloride 96 L Carbon Dioxide 5.0 L* Anion Gap 29 H BUN 48 H Creatinine 2.44 H Estim Creat Clear Calc 18.00 Est GFR (MDRD) Af Amer 25 L Est GFR (MDRD) Non-Af 21 L BUN/Creatinine Ratio 19.7 Glucose 1143 H* Hemoglobin A1c Lactic Acid Calcium 8.7 Magnesium Total Bilirubin 0.20 AST 94 H ALT 52 Alkaline Phosphatase 149 H Total Creatine Kinase Troponin I 0.087 H Total Protein 6.5 Albumin 3.0 L Globulin 3.5 Albumin/Globulin Ratio 0.9 TSH Urine Color Urine Clarity Urine pH Ur Specific [place] Urine Protein Urine Glucose (UA) Urine Ketones Urine Occult Blood Urine Nitrite Urine Bilirubin Urine Urobilinogen Ur Leukocyte Esterase Urine RBC Urine WBC Ur Squamous Epith Cells Amorphous Sediment Urine Bacteria Coarse Granular Casts Urine Mucus Acetone Level MRSA (PCR) 01/22/18 01/22/18 01/22/18 17:31 17:31 17:31 WBC RBC Hgb Hct MCV MCH MCHC RDW RDW Differential Plt Count MPV Neut % (Auto) Absolute Neuts (auto) Total Counted PT INR Fibrinogen D-Dimer Quant (PE/DVT) Specimen Type Sample Site pH Bicarbonate Actual POC Total CO2 Base Excess O2 Saturation O2 % ABG pCO2 ABG pO2 Boyd Test Respiration Rate O2 Delivery Device Minute Volume Vent Mode Tidal Volume POC PEEP Blood Gas Notified Whom Blood Gas Notified Time Sodium Potassium Chloride Carbon Dioxide Anion Gap BUN Creatinine Estim Creat Clear Calc Est GFR (MDRD) Af Amer Est GFR (MDRD) Non-Af BUN/Creatinine Ratio Glucose Hemoglobin A1c Lactic Acid Cancelled Calcium Magnesium 4.0 H Total Bilirubin AST ALT Alkaline Phosphatase Total Creatine Kinase 3020 H Troponin I Total Protein Albumin Globulin Albumin/Globulin Ratio TSH Urine Color Urine Clarity Urine pH Ur Specific [place] Urine Protein Urine Glucose (UA) Urine Ketones Urine Occult Blood Urine Nitrite Urine Bilirubin Urine Urobilinogen Ur Leukocyte Esterase Urine RBC Urine WBC Ur Squamous Epith Cells Amorphous Sediment Urine Bacteria Coarse Granular Casts Urine Mucus Acetone Level MRSA (PCR) 01/22/18 01/22/18 01/22/18 18:08 18:21 18:30 WBC RBC Hgb Hct MCV MCH MCHC RDW RDW Differential Plt Count MPV Neut % (Auto) Absolute Neuts (auto) Total Counted PT INR Fibrinogen D-Dimer Quant (PE/DVT) Specimen Type ART Sample Site L Femoral pH 6.67 L* Bicarbonate Actual 3.6 L POC Total CO2 < 5 Base Excess < -30 L O2 Saturation 100 H O2 % 100 ABG pCO2 31.4 L ABG pO2 656 H* Boyd Test NA Respiration Rate 12 O2 Delivery Device Vent Minute Volume Vent Mode A-C Tidal Volume 450 POC PEEP 5 Blood Gas Notified Whom ED Blood Gas Notified Time 1815 Sodium Potassium Chloride Carbon Dioxide Anion Gap BUN Creatinine Estim Creat Clear Calc Est GFR (MDRD) Af Amer Est GFR (MDRD) Non-Af BUN/Creatinine Ratio Glucose Hemoglobin A1c Lactic Acid Calcium Magnesium Total Bilirubin AST ALT Alkaline Phosphatase Total Creatine Kinase Troponin I Total Protein Albumin Globulin Albumin/Globulin Ratio TSH Urine Color Yellow Urine Clarity Clear Urine pH 5.0 Ur Specific [place] 1.020 Urine Protein 30 H Urine Glucose (UA) 1000 H Urine Ketones 150 H Urine Occult Blood 250 H Urine Nitrite Negative Urine Bilirubin Negative Urine Urobilinogen Normal Ur Leukocyte Esterase Negative Urine RBC 0 SEEN Urine WBC 0-5 SEEN Ur Squamous Epith Cells 0-5 SEEN Amorphous Sediment 1+ Urine Bacteria RARE Coarse Granular Casts 0-5 SEEN Urine Mucus 0 SEEN Acetone Level MODERATE H MRSA (PCR) 01/22/18 01/22/18 01/22/18 18:30 18:30 18:30 WBC RBC Hgb Hct MCV MCH MCHC RDW RDW Differential Plt Count MPV Neut % (Auto) Absolute Neuts (auto) Total Counted PT INR Fibrinogen 318 D-Dimer Quant (PE/DVT) Specimen Type Sample Site pH Bicarbonate Actual POC Total CO2 Base Excess O2 Saturation O2 % ABG pCO2 ABG pO2 Boyd Test Respiration Rate O2 Delivery Device Minute Volume Vent Mode Tidal Volume POC PEEP Blood Gas Notified Whom Blood Gas Notified Time Sodium Potassium Chloride Carbon Dioxide Anion Gap BUN Creatinine Estim Creat Clear Calc Est GFR (MDRD) Af Amer Est GFR (MDRD) Non-Af BUN/Creatinine Ratio Glucose Hemoglobin A1c Lactic Acid 2.5 H Calcium Magnesium Total Bilirubin AST ALT Alkaline Phosphatase Total Creatine Kinase Troponin I Total Protein Albumin Globulin Albumin/Globulin Ratio TSH 1.17 Urine Color Urine Clarity Urine pH Ur Specific [place] Urine Protein Urine Glucose (UA) Urine Ketones Urine Occult Blood Urine Nitrite Urine Bilirubin Urine Urobilinogen Ur Leukocyte Esterase Urine RBC Urine WBC Ur Squamous Epith Cells Amorphous Sediment Urine Bacteria Coarse Granular Casts Urine Mucus Acetone Level MRSA (PCR) 01/22/18 01/22/18 01/22/18 18:30 20:15 20:15 WBC RBC Hgb Hct MCV MCH MCHC RDW RDW Differential Plt Count MPV Neut % (Auto) Absolute Neuts (auto) Total Counted PT INR Fibrinogen D-Dimer Quant (PE/DVT) 0.79 H* Specimen Type Sample Site pH Bicarbonate Actual POC Total CO2 Base Excess O2 Saturation O2 % ABG pCO2 ABG pO2 Boyd Test Respiration Rate O2 Delivery Device Minute Volume Vent Mode Tidal Volume POC PEEP Blood Gas Notified Whom Blood Gas Notified Time Sodium Potassium Chloride Carbon Dioxide Anion Gap BUN Creatinine Estim Creat Clear Calc Est GFR (MDRD) Af Amer Est GFR (MDRD) Non-Af BUN/Creatinine Ratio Glucose Hemoglobin A1c 14.2 H Lactic Acid Calcium Magnesium Total Bilirubin AST ALT Alkaline Phosphatase Total Creatine Kinase Troponin I 0.180 H Total Protein Albumin Globulin Albumin/Globulin Ratio TSH Urine Color Urine Clarity Urine pH Ur Specific [place] Urine Protein Urine Glucose (UA) Urine Ketones Urine Occult Blood Urine Nitrite Urine Bilirubin Urine Urobilinogen Ur Leukocyte Esterase Urine RBC Urine WBC Ur Squamous Epith Cells Amorphous Sediment Urine Bacteria Coarse Granular Casts Urine Mucus Acetone Level MRSA (PCR) 01/22/18 01/22/18 01/22/18 20:15 20:26 21:25 WBC RBC Hgb Hct MCV MCH MCHC RDW RDW Differential Plt Count MPV Neut % (Auto) Absolute Neuts (auto) Total Counted PT INR Fibrinogen D-Dimer Quant (PE/DVT) Specimen Type ART Sample Site L Brachial pH 6.65 L* Bicarbonate Actual 2.7 L POC Total CO2 < 5 Base Excess < -30 L O2 Saturation 98 O2 % 35 ABG pCO2 25.1 L ABG pO2 223 H Boyd Test Respiration Rate 14 O2 Delivery Device Vent Minute Volume 6.00 Vent Mode A-C Tidal Volume 450 POC PEEP 5 Blood Gas Notified Whom [facility] Blood Gas Notified Time 2019 Sodium 136 Potassium 6.4 H* Chloride 106 Carbon Dioxide 4.0 L* Anion Gap 26 H BUN 45 H Creatinine 2.16 H Estim Creat Clear Calc 20.33 Est GFR (MDRD) Af Amer 29 L Est GFR (MDRD) Non-Af 24 L BUN/Creatinine Ratio 20.8 H Glucose 929 H* 886 H* Hemoglobin A1c Lactic Acid Calcium 7.2 L Magnesium Total Bilirubin AST ALT Alkaline Phosphatase Total Creatine Kinase Troponin I Total Protein Albumin Globulin Albumin/Globulin Ratio TSH Urine Color Urine Clarity Urine pH Ur Specific [place] Urine Protein Urine Glucose (UA) Urine Ketones Urine Occult Blood Urine Nitrite Urine Bilirubin Urine Urobilinogen Ur Leukocyte Esterase Urine RBC Urine WBC Ur Squamous Epith Cells Amorphous Sediment Urine Bacteria Coarse Granular Casts Urine Mucus Acetone Level MRSA (PCR) 01/22/18 01/22/18 01/22/18 21:50 23:00 23:00 WBC RBC Hgb Hct MCV MCH MCHC RDW RDW Differential Plt Count MPV Neut % (Auto) Absolute Neuts (auto) Total Counted PT INR Fibrinogen D-Dimer Quant (PE/DVT) Specimen Type Sample Site pH Bicarbonate Actual POC Total CO2 Base Excess O2 Saturation O2 % ABG pCO2 ABG pO2 Boyd Test Respiration Rate O2 Delivery Device Minute Volume Vent Mode Tidal Volume POC PEEP Blood Gas Notified Whom Blood Gas Notified Time Sodium Potassium Chloride Carbon Dioxide Anion Gap BUN Creatinine Estim Creat Clear Calc Est GFR (MDRD) Af Amer Est GFR (MDRD) Non-Af BUN/Creatinine Ratio Glucose 773 H* Hemoglobin A1c Lactic Acid Calcium Magnesium Total Bilirubin AST ALT Alkaline Phosphatase Total Creatine Kinase Troponin I 0.276 H Total Protein Albumin Globulin Albumin/Globulin Ratio TSH Urine Color Urine Clarity Urine pH Ur Specific [place] Urine Protein Urine Glucose (UA) Urine Ketones Urine Occult Blood Urine Nitrite Urine Bilirubin Urine Urobilinogen Ur Leukocyte Esterase Urine RBC Urine WBC Ur Squamous Epith Cells Amorphous Sediment Urine Bacteria Coarse Granular Casts Urine Mucus Acetone Level MRSA (PCR) Negative 01/23/18 01/23/18 01/23/18 00:05 00:05 00:05 WBC RBC Hgb Hct MCV MCH MCHC RDW RDW Differential Plt Count MPV Neut % (Auto) Absolute Neuts (auto) Total Counted PT INR Fibrinogen D-Dimer Quant (PE/DVT) Specimen Type Sample Site pH Bicarbonate Actual POC Total CO2 Base Excess O2 Saturation O2 % ABG pCO2 ABG pO2 Boyd Test Respiration Rate O2 Delivery Device Minute Volume Vent Mode Tidal Volume POC PEEP Blood Gas Notified Whom Blood Gas Notified Time Sodium 138 Potassium 6.1 H* Chloride 108 H Carbon Dioxide 6.0 L* Anion Gap 24 H BUN 46 H Creatinine 2.11 H Estim Creat Clear Calc 20.81 Est GFR (MDRD) Af Amer 30 L Est GFR (MDRD) Non-Af 24 L BUN/Creatinine Ratio 21.8 H Glucose 744 H* Hemoglobin A1c Lactic Acid 1.6 Calcium 7.2 L Magnesium Total Bilirubin AST ALT Alkaline Phosphatase Total Creatine Kinase 80039 H Troponin I Total Protein Albumin Globulin Albumin/Globulin Ratio TSH Urine Color Urine Clarity Urine pH Ur Specific [place] Urine Protein Urine Glucose (UA) Urine Ketones Urine Occult Blood Urine Nitrite Urine Bilirubin Urine Urobilinogen Ur Leukocyte Esterase Urine RBC Urine WBC Ur Squamous Epith Cells Amorphous Sediment Urine Bacteria Coarse Granular Casts Urine Mucus Acetone Level MRSA (PCR) 10/10/0501/23/18 01/23/18 01:00 03:05 03:05 WBC 11.4 H RBC 3.78 L Hgb 11.3 L Hct 36.8 L MCV 97.4 MCH 29.9 MCHC 30.7 L RDW 13.9 RDW Differential 50.2 H Plt Count 282 MPV 8.9 Neut % (Auto) Absolute Neuts (auto) Total Counted PT INR Fibrinogen D-Dimer Quant (PE/DVT) Specimen Type Sample Site pH Bicarbonate Actual POC Total CO2 Base Excess O2 Saturation O2 % ABG pCO2 ABG pO2 Boyd Test Respiration Rate O2 Delivery Device Minute Volume Vent Mode Tidal Volume POC PEEP Blood Gas Notified Whom Blood Gas Notified Time Sodium 140 Potassium 5.9 H Chloride 109 H Carbon Dioxide 8.0 L* Anion Gap 23 H BUN 50 H Creatinine 2.36 H Estim Creat Clear Calc 18.61 Est GFR (MDRD) Af Amer 26 L Est GFR (MDRD) Non-Af 22 L BUN/Creatinine Ratio 21.2 H Glucose 713 H* 680 H* Hemoglobin A1c Lactic Acid Calcium 7.3 L Magnesium Total Bilirubin AST ALT Alkaline Phosphatase Total Creatine Kinase Troponin I Total Protein Albumin Globulin Albumin/Globulin Ratio TSH Urine Color Urine Clarity Urine pH Ur Specific [place] Urine Protein Urine Glucose (UA) Urine Ketones Urine Occult Blood Urine Nitrite Urine Bilirubin Urine Urobilinogen Ur Leukocyte Esterase Urine RBC Urine WBC Ur Squamous Epith Cells Amorphous Sediment Urine Bacteria Coarse Granular Casts Urine Mucus Acetone Level MRSA (PCR) 01/23/18 03:22 WBC RBC Hgb Hct MCV MCH MCHC RDW RDW Differential Plt Count MPV Neut % (Auto) Absolute Neuts (auto) Total Counted PT INR Fibrinogen D-Dimer Quant (PE/DVT) Specimen Type ART Sample Site L Radial pH 6.97 L* Bicarbonate Actual 5.6 L POC Total CO2 6 Base Excess -26 L O2 Saturation 96 O2 % 25 ABG pCO2 24.4 L ABG pO2 122 H Boyd Test Respiration Rate 14 O2 Delivery Device Vent Minute Volume 7.00 Vent Mode A-C Tidal Volume 450 POC PEEP 5 Blood Gas Notified Whom ICU MD Blood Gas Notified Time 321 Sodium Potassium Chloride Carbon Dioxide Anion Gap BUN Creatinine Estim Creat Clear Calc Est GFR (MDRD) Af Amer Est GFR (MDRD) Non-Af BUN/Creatinine Ratio Glucose Hemoglobin A1c Lactic Acid Calcium Magnesium Total Bilirubin AST ALT Alkaline Phosphatase Total Creatine Kinase Troponin I Total Protein Albumin Globulin Albumin/Globulin Ratio TSH Urine Color Urine Clarity Urine pH Ur Specific [place] Urine Protein Urine Glucose (UA) Urine Ketones Urine Occult Blood Urine Nitrite Urine Bilirubin Urine Urobilinogen Ur Leukocyte Esterase Urine RBC Urine WBC Ur Squamous Epith Cells Amorphous Sediment Urine Bacteria Coarse Granular Casts Urine Mucus Acetone Level MRSA (PCR) POC Glucose 01/23/18 01/23/18 01/23/18 05:59 05:01 03:01 POC Glucose > 500 H* > 500 H* > 500 H* 01/22/18 01/22/18 01/22/18 23:01 21:12 20:04 POC Glucose > 500 H* > 500 H* > 500 H* 01/22/18 18:07 POC Glucose > 500 H* Clinical Impression(s) from Imaging Studies Brain CT 01/22/18 17:32 IMPRESSION: No acute intracranial abnormality. Chronic ischemic and atrophic changes. Sinusitis. N.B. : The above information has been verbally conveyed by Jd Johnson to Mathieu Barnes on 01/22/2018 18:04:53 (ET). Electronically Signed: Jd Johnson, at 18:04 EDT Tel , Service support , Chest X-Ray 01/22/18 18:15 IMPRESSION: Satisfactory position of the support lines and tubes. No acute thoracic pathology. Electronically Signed: Jd Johnson, at 18:58 EDT Tel , Service support , Assessment/Plan Active and Suspected Problems (Last Reviewed 01/22/18 @ 19:39 by Jamar Saxena DO) Respiratory failure (Acute) Metabolic acidosis (Acute) DKA (diabetic ketoacidoses) (Acute) Hypothermia (Acute) Sinusitis (Acute) Hyperkalemia (Acute) Rhabdomyolysis (Acute) RECOMMENDATIONS: 1. Transition from normal saline to lactated Ringer's 2. Continue insulin drip until anion gap has been closed x2. 3. Initiate sedatives to maintain a RASS of -1 to 1. 4. Discontinue Levaquin and start meropenem. 5. Discontinue scheduled aerosol treatments. 6. Continue Levophed and vasopressin to maintain a mean arterial pressure at or above 65 mmHg. 7. Patient to remain n.p.o. for now. 8. Start Pepcid and heparin for GI and DVT prophylaxis, respectively. IMPRESSIONS: 1. Acute respiratory failure The patient was intubated upon arrival to the emergency department due to her state of encephalopathy likely precipitated by metabolic derangements in the setting of diabetic ketoacidosis. Her mentation is slowly improved with correction of her underlying metabolic derangements invasive mechanical ventilation. Plan to continue current supportive measures until the patient's metabolic derangements are completely corrected. Recommend checking respiratory viral panel. In addition, the patient should be started on Pepcid and subcutaneous heparin for appropriate ICU prophylaxis. 2. Hypovolemic versus septic shock The patient has been volume resuscitated, but remains persistently hypotensive requiring vasopressor support. She has a profound metabolic acidosis. If this does not begin to correct soon, she will be placed on a bicarb containing infusion until her pH is greater than 6.9. Repeat labs are currently pending. Continue current supportive measures with levo fed and vasopressin to maintain a mean arterial pressure at or above 65 mmHg. The patient's Levaquin will be broadened to meropenem, given her penicillin allergy. She did have sinusitis identified on CT head. However, her plain film chest x-ray did not reveal an acute cardiopulmonary process. Cultures are currently pending. We will also plan to check respiratory viral panel. 3. Metabolic encephalopathy The patient presents to the hospital with profound metabolic derangements in the setting of #4. She is a poorly controlled diabetic with a hemoglobin A1c of greater than 14. I anticipate improvement in her mentation as her underlying metabolic derangements are corrected. She will be maintained on sedation while mechanically ventilated in an attempt to maintain a RASS of -1 to 1. 4. Diabetic ketoacidosis Continue treatment per DKA protocol with IV volume resuscitation and continuous insulin infusion. The patient's insulin drip will be continued until anion gap has been closed x2. Patient to remain n.p.o. for now. Continue serial chemistry checks. 5. Acute kidney injury/rhabdomyolysis Likely multifactorial in etiology with prerenal azotemia/ischemic ATN combined with rhabdomyolysis contributing. Continue current supportive measures with volume expansion and vasopressor support to maintain hemodynamic stability. Continue to monitor CK levels periodically. Continue to monitor urine output. There is no current indication for renal replacement therapy. 6. Troponin elevation Likely secondary to demand ischemia in the setting of #2. Continue to trend troponins. Consider obtaining echocardiogram. TIME: 48 minutes of critical care time, independent of procedures, was spent addressing the patient's acute respiratory failure, hypovolemic/septic shock, metabolic encephalopathy, diabetic ketoacidosis, acute kidney injury, troponin elevation, review of all data and collaboration with the care team. ([id number]) Code Visit [id number]: [id number] Critical care first hour
[2018-01-23] MEDS: Lactated Ringers 1,000 ML 150 ML IV ×3 (07:11→20:16)
[2018-01-23] MEDS: Propofol 10MG/Ml 1,000 MG/100 ML Bottle 1.983 MG CONT INF (07:13)
[2018-01-23 07:35] LABS: Anion Gap 21 (5-15); BUN 49 mg/dL (7-18); Calcium,Total 7.1 mg/dL (8.5-10.1); Chloride 112 mmol/L (98-107); Creatinine, Serum 2.45 mg/dL (0.55-1.02); EST Glomerular Filtration Rate 21 mL/min (>60); Est Glom Filt Rate - Afr Amer 25 mL/min (>60); Estimated Creatinine Clearance 17.92 ml/min; Glucose 589 mg/dL (74-106); Potassium 4.7 mmol/L (3.5-5.1); Sodium Level 141 mmol/L (136-145); Triglycerides 199 mg/dL
[2018-01-23 08:26] LABS: Bedside Glucose 476 mg/dL (70-110)
[2018-01-23 08:26] LABS: Bedside Glucose 442 mg/dL (70-110)
--- NOTE | 2018-01-23 08:29 | PCM.PN.HOSP ---
Patient Problems: Active and Suspected Problems (Last Reviewed 01/22/18 @ 19:39 by Jamar Saxena DO) Respiratory failure (Acute) Metabolic acidosis (Acute) DKA (diabetic ketoacidoses) (Acute) Hypothermia (Acute) Sinusitis (Acute) Hyperkalemia (Acute) Rhabdomyolysis (Acute) Subjective: intubated and sedated. Agitated overnights, so started on propofol Vitals/I&O's: Vital Signs Temp Pulse Resp BP Pulse Ox 99.1 F 108 H 25 H 142/111 H 100 01/23/18 07:00 01/23/18 07:00 01/23/18 07:00 01/23/18 07:00 01/23/18 07:00 Oxygen Delivery Method Mechanical Ventilator Weight: 145 lb 11.609 oz Body Mass Index (BMI) 23.9 Finger Stick Blood Glucose 476 Intake and Output for Last 24 Hours 01/21/18 01/22/18 01/23/18 23:59 23:59 23:59 Intake Total 2830.3 / 2830.3 Output Total 1400 / 1400 Balance 1430.3 / 1430.3 General: No apparent distress, - - Intubated and sedated HEENT: Atraumatic, EOMI, Normocephalic Oral: Moist Mucosa Neck: No JVD Lungs: Normal air movement, - - Coarse Cardiovascular: Regular rate, Regular Rhythm, Normal S1, Normal S2, No murmurs Abdomen: Soft, Non-Distended, No Hepato-splenomegaly Extremities: Edema Skin: No rashes, No breakdown Laboratory Results 01/22/18 17:31: WBC 15.0 H, RBC 3.66 L, Hgb 11.1 L, Hct 39.8, MCV 108.7 H, MCH 30.3, MCHC 27.9 L, RDW 14.4, RDW Differential 57.2 H, Plt Count 350, MPV 9.9, Neut % (Auto) Not Reportable, Absolute Neuts (auto) Not Reportable, Total Counted Not Reportable 01/22/18 17:31: PT 17.1 H, INR 1.4 01/22/18 17:31: Sodium 130 L, Potassium 7.4 H*, Chloride 96 L, Carbon Dioxide 5.0 L*, Anion Gap 29 H, BUN 48 H, Creatinine 2.44 H, Estim Creat Clear Calc 18.00, Est GFR (MDRD) Af Amer 25 L, Est GFR (MDRD) Non-Af 21 L, BUN/Creatinine Ratio 19.7, Glucose 1143 H*, Calcium 8.7, Total Bilirubin 0.20, AST 94 H, ALT 52, Alkaline Phosphatase 149 H, Troponin I 0.087 H, Total Protein 6.5, Albumin 3.0 L, Globulin 3.5, Albumin/Globulin Ratio 0.9 01/22/18 17:31: Lactic Acid Cancelled 01/22/18 17:31: Magnesium 4.0 H 01/22/18 17:31: Total Creatine Kinase 3020 H 01/22/18 18:07: POC Glucose > 500 H* 01/22/18 18:08: Urine Color Yellow, Urine Clarity Clear, Urine pH 5.0, Ur Specific [place] 1.020, Urine Protein 30 H, Urine Glucose (UA) 1000 H, Urine Ketones 150 H, Urine Occult Blood 250 H, Urine Nitrite Negative, Urine Bilirubin Negative, Urine Urobilinogen Normal, Ur Leukocyte Esterase Negative, Urine RBC 0 SEEN, Urine WBC 0-5 SEEN, Ur Squamous Epith Cells 0-5 SEEN, Amorphous Sediment 1+, Urine Bacteria RARE, Coarse Granular Casts 0-5 SEEN, Urine Mucus 0 SEEN 01/22/18 18:21: Specimen Type ART, Sample Site L Femoral, pH 6.67 L*, Bicarbonate Actual 3.6 L, POC Total CO2 < 5, Base Excess < -30 L, O2 Saturation 100 H, O2 % 100, ABG pCO2 31.4 L, ABG pO2 656 H*, Boyd Test NA, Respiration Rate 12, O2 Delivery Device Vent, Vent Mode A-C, Tidal Volume 450, POC PEEP 5, Blood Gas Notified Whom ED , Blood Gas Notified Time 1815 01/22/18 18:30: Acetone Level MODERATE H 01/22/18 18:30: Lactic Acid 2.5 H 01/22/18 18:30: Fibrinogen 318 01/22/18 18:30: TSH 1.17 01/22/18 18:30: D-Dimer Quant (PE/DVT) 0.79 H* 01/22/18 20:04: POC Glucose > 500 H* 01/22/18 20:15: Hemoglobin A1c 14.2 H 01/22/18 20:15: Troponin I 0.180 H 01/22/18 20:15: Sodium 136, Potassium 6.4 H*, Chloride 106, Carbon Dioxide 4.0 L*, Anion Gap 26 H, BUN 45 H, Creatinine 2.16 H, Estim Creat Clear Calc 20.33, Est GFR (MDRD) Af Amer 29 L, Est GFR (MDRD) Non-Af 24 L, BUN/Creatinine Ratio 20.8 H, Glucose 929 H*, Calcium 7.2 L 01/22/18 20:26: Specimen Type ART, Sample Site L Brachial, pH 6.65 L*, Bicarbonate Actual 2.7 L, POC Total CO2 < 5, Base Excess < -30 L, O2 Saturation 98, O2 % 35, ABG pCO2 25.1 L, ABG pO2 223 H, Respiration Rate 14, O2 Delivery Device Vent, Minute Volume 6.00, Vent Mode A-C, Tidal Volume 450, POC PEEP 5, Blood Gas Notified Whom TAMMI HANDY, Blood Gas Notified Time 201901/22/18 21:12: POC Glucose > 500 H* 01/22/18 21:25: Glucose 886 H* 01/22/18 21:50: MRSA (PCR) Negative 01/22/18 23:00: Troponin I 0.276 H 01/22/18 23:00: Glucose 773 H* 01/22/18 23:01: POC Glucose > 500 H* 01/23/18 00:05: Sodium 138, Potassium 6.1 H*, Chloride 108 H, Carbon Dioxide 6.0 L*, Anion Gap 24 H, BUN 46 H, Creatinine 2.11 H, Estim Creat Clear Calc 20.81, Est GFR (MDRD) Af Amer 30 L, Est GFR (MDRD) Non-Af 24 L, BUN/Creatinine Ratio 21.8 H, Glucose 744 H*, Calcium 7.2 L 01/23/18 00:05: Total Creatine Kinase 74652 H 01/23/18 00:05: Lactic Acid 1.6 01/23/18 01:00: Glucose 713 H* 01/23/18 03:01: POC Glucose > 500 H* 01/23/18 03:05: WBC 11.4 H, RBC 3.78 L, Hgb 11.3 L, Hct 36.8 L, MCV 97.4, MCH 29.9, MCHC 30.7 L, RDW 13.9, RDW Differential 50.2 H, Plt Count 282, MPV 8.9 01/23/18 03:05: Sodium 140, Potassium 5.9 H, Chloride 109 H, Carbon Dioxide 8.0 L*, Anion Gap 23 H, BUN 50 H, Creatinine 2.36 H, Estim Creat Clear Calc 18.61, Est GFR (MDRD) Af Amer 26 L, Est GFR (MDRD) Non-Af 22 L, BUN/Creatinine Ratio 21.2 H, Glucose 680 H*, Calcium 7.3 L 01/23/18 03:22: Specimen Type ART, Sample Site L Radial, pH 6.97 L*, Bicarbonate Actual 5.6 L, POC Total CO2 6, Base Excess -26 L, O2 Saturation 96, O2 % 25, ABG pCO2 24.4 L, ABG pO2 122 H, Respiration Rate 14, O2 Delivery Device Vent, Minute Volume 7.00, Vent Mode A-C, Tidal Volume 450, POC PEEP 5, Blood Gas Notified Whom ICU MD, Blood Gas Notified Time 321 01/23/18 05:01: POC Glucose > 500 H* 01/23/18 05:59: POC Glucose > 500 H* 01/23/18 06:58: Sodium 141, Potassium 4.7, Chloride 112 H, Carbon Dioxide 8.0 L*, Anion Gap 21 H, BUN 49 H, Creatinine 2.45 H, Estim Creat Clear Calc 17.92, Est GFR (MDRD) Af Amer 25 L, Est GFR (MDRD) Non-Af 21 L, BUN/Creatinine Ratio 20.0, Glucose 589 H*, Calcium 7.1 L, Triglycerides 199 01/23/18 06:58: Total Creatine Kinase Pending 01/23/18 07:01: POC Glucose 442 H 01/23/18 08:09: POC Glucose 476 H* Current Medications Albuterol Sulfate (Ventolin Aerosols) 2.5 mg INHALATION Q2H PRN PRN PRN Reason: SHORTNESS OF BREATH Albuterol Sulfate (Ventolin Aerosols) 2.5 mg INHALATION Q4H.RT ALEJANDRA Last Admin: 01/23/18 06:29 Dose: 2.5 mg Chlorhexidine Gluconate () 15 ml PO BID ALEJANDRA Last Admin: 01/22/18 21:59 Dose: 15 ml Dextrose (D50w Syringe) 0 gm IV X1 PRN; Protocol PRN Reason: HYPOGLYCEMIA Norepinephrine Bitartrate 8 mg (/ Dextrose) 258 mls @ 9.68 mls/hr IV .[id number] [facility] Last Admin: 01/23/18 04:01 Dose: 9.68 mls/hr Insulin Human Lispro 100 unit/ (Sodium Chloride) 100 mls @ 7.24 mls/hr IV .[id number] [facility]LEJANDRA; Protocol Sodium Chloride () 250 mls @ 15 mls/hr IV .[id number] PRN PRN Reason: SALINE FLUSH Vasopressin 40 units/ Sodium (Chloride) 52 mls @ 3.12 mls/hr IV .[id number] [facility] Last Admin: 01/23/18 04:17 Dose: 3.12 mls/hr Lactated Ringer's () 1,000 mls @ 150 mls/hr IV .[id number] [facility] Last Admin: 01/23/18 07:11 Dose: 150 mls/hr Meropenem 500 mg/ Sodium (Chloride) 60 mls @ 100 mls/hr IV Q12 [facility] Last Admin: 01/23/18 08:17 Dose: 100 mls/hr Propofol (Diprivan) 1,000 mg in 100 mls @ 1.983 mls/hr CONT INF .Q12H [facility]; Protocol Last Admin: 01/23/18 07:13 Dose: 1.983 mls/hr Magnesium Hydroxide (Milk Of Magnesia) 30 ml PO DAILY PRN PRN PRN Reason: Constipation Sodium Chloride () 5 - 30 ml IV UD PRN PRN Reason: SALINE FLUSH Sodium Chloride () 10 - 40 ml IV UD PRN PRN Reason: MULTILUMEN/HICMAN CATH FLUSH Last Admin: 01/23/18 04:01 Dose: 20 ml Medical Necessity - Tobacco Use Smoking Status: Never smoker Tobacco Use: Non-smoker Assessment/Plan All Active Problems (Last Reviewed 01/22/18 @ 19:39 by Jamar Saxena DO) Respiratory failure (Acute) Metabolic acidosis (Acute) DKA (diabetic ketoacidoses) (Acute) Hypothermia (Acute) Sinusitis (Acute) Hyperkalemia (Acute) Rhabdomyolysis (Acute) DKA, type 1 (Acute) UTI (urinary tract infection) (Acute) 1. DKA with type 1 DM/Metabolic encephalopathy 2/2 metabolic acidosis and respiratory failure/BETH/Elevated troponin 2/2 rhabdomyolysis/Hypovolemic shock/?DIC - DKA protocol with insulin drip - IVF@150 - Oliva in place monitor I/O - C/w sedation for now - Levophed and vasopressin for hemodynamic support - C/w meropenem for shock and what appears to be sinusitis DVT: SCDs Diet: NPO DNRCC-A Code Visit Inpatient E&M: 58362 Subs Hosp L2
--- NOTE | 2018-01-23 08:34 | PN_ITS ---
Patient Problems: Active and Suspected Problems (Last Reviewed 01/22/18 @ 19:39 by Jamar Saxena DO) Respiratory failure (Acute) Metabolic acidosis (Acute) DKA (diabetic ketoacidoses) (Acute) Hypothermia (Acute) Sinusitis (Acute) Hyperkalemia (Acute) Rhabdomyolysis (Acute) Subjective: intubated and sedated. Agitated overnights, so started on propofol Vitals/I&O's: Vital Signs Temp Pulse Resp BP Pulse Ox 99.1 F 108 H 25 H 142/111 H 100 01/23/18 07:00 01/23/18 07:00 01/23/18 07:00 01/23/18 07:00 01/23/18 07:00 Oxygen Delivery Method Mechanical Ventilator Weight: 145 lb 11.609 oz Body Mass Index (BMI) 23.9 Finger Stick Blood Glucose 476 Intake and Output for Last 24 Hours 01/21/18 01/22/18 01/23/18 23:59 23:59 23:59 Intake Total 2830.3 / 2830.3 Output Total 1400 / 1400 Balance 1430.3 / 1430.3 General: No apparent distress, - - Intubated and sedated HEENT: Atraumatic, EOMI, Normocephalic Oral: Moist Mucosa Neck: No JVD Lungs: Normal air movement, - - Coarse Cardiovascular: Regular rate, Regular Rhythm, Normal S1, Normal S2, No murmurs Abdomen: Soft, Non-Distended, No Hepato-splenomegaly Extremities: Edema Skin: No rashes, No breakdown Laboratory Results 01/22/18 17:31: WBC 15.0 H, RBC 3.66 L, Hgb 11.1 L, Hct 39.8, MCV 108.7 H, MCH 30.3, MCHC 27.9 L, RDW 14.4, RDW Differential 57.2 H, Plt Count 350, MPV 9.9, Neut % (Auto) Not Reportable, Absolute Neuts (auto) Not Reportable, Total Counted Not Reportable 01/22/18 17:31: PT 17.1 H, INR 1.4 01/22/18 17:31: Sodium 130 L, Potassium 7.4 H*, Chloride 96 L, Carbon Dioxide 5.0 L*, Anion Gap 29 H, BUN 48 H, Creatinine 2.44 H, Estim Creat Clear Calc 18.00, Est GFR (MDRD) Af Amer 25 L, Est GFR (MDRD) Non-Af 21 L, BUN/Creatinine Ratio 19.7, Glucose 1143 H*, Calcium 8.7, Total Bilirubin 0.20, AST 94 H, ALT 52, Alkaline Phosphatase 149 H, Troponin I 0.087 H, Total Protein 6.5, Albumin 3.0 L, Globulin 3.5, Albumin/Globulin Ratio 0.9 01/22/18 17:31: Lactic Acid Cancelled 01/22/18 17:31: Magnesium 4.0 H 01/22/18 17:31: Total Creatine Kinase 3020 H 01/22/18 18:07: POC Glucose > 500 H* 01/22/18 18:08: Urine Color Yellow, Urine Clarity Clear, Urine pH 5.0, Ur Specific [place] 1.020, Urine Protein 30 H, Urine Glucose (UA) 1000 H, Urine Ketones 150 H, Urine Occult Blood 250 H, Urine Nitrite Negative, Urine Bilirubin Negative, Urine Urobilinogen Normal, Ur Leukocyte Esterase Negative, Urine RBC 0 SEEN, Urine WBC 0-5 SEEN, Ur Squamous Epith Cells 0-5 SEEN, Amorphous Sediment 1+, Urine Bacteria RARE, Coarse Granular Casts 0-5 SEEN, Urine Mucus 0 SEEN 01/22/18 18:21: Specimen Type ART, Sample Site L Femoral, pH 6.67 L*, Bicarbonate Actual 3.6 L, POC Total CO2 < 5, Base Excess < -30 L, O2 Saturation 100 H, O2 % 100, ABG pCO2 31.4 L, ABG pO2 656 H*, Boyd Test NA, Respiration Rate 12, O2 Delivery Device Vent, Vent Mode A-C, Tidal Volume 450, POC PEEP 5, Blood Gas Notified Whom ED , Blood Gas Notified Time 1815 01/22/18 18:30: Acetone Level MODERATE H 01/22/18 18:30: Lactic Acid 2.5 H 01/22/18 18:30: Fibrinogen 318 01/22/18 18:30: TSH 1.17 01/22/18 18:30: D-Dimer Quant (PE/DVT) 0.79 H* 01/22/18 20:04: POC Glucose > 500 H* 01/22/18 20:15: Hemoglobin A1c 14.2 H 01/22/18 20:15: Troponin I 0.180 H 01/22/18 20:15: Sodium 136, Potassium 6.4 H*, Chloride 106, Carbon Dioxide 4.0 L*, Anion Gap 26 H, BUN 45 H, Creatinine 2.16 H, Estim Creat Clear Calc 20.33, Est GFR (MDRD) Af Amer 29 L, Est GFR (MDRD) Non-Af 24 L, BUN/Creatinine Ratio 20.8 H, Glucose 929 H*, Calcium 7.2 L 01/22/18 20:26: Specimen Type ART, Sample Site L Brachial, pH 6.65 L*, Bicarbonate Actual 2.7 L, POC Total CO2 < 5, Base Excess < -30 L, O2 Saturation 98, O2 % 35, ABG pCO2 25.1 L, ABG pO2 223 H, Respiration Rate 14, O2 Delivery Device Vent, Minute Volume 6.00, Vent Mode A-C, Tidal Volume 450, POC PEEP 5, Blood Gas Notified Whom TAMMI HANDY, Blood Gas Notified Time 201901/22/18 21:12: POC Glucose > 500 H* 01/22/18 21:25: Glucose 886 H* 01/22/18 21:50: MRSA (PCR) Negative 01/22/18 23:00: Troponin I 0.276 H 01/22/18 23:00: Glucose 773 H* 01/22/18 23:01: POC Glucose > 500 H* 01/23/18 00:05: Sodium 138, Potassium 6.1 H*, Chloride 108 H, Carbon Dioxide 6.0 L*, Anion Gap 24 H, BUN 46 H, Creatinine 2.11 H, Estim Creat Clear Calc 20.81, Est GFR (MDRD) Af Amer 30 L, Est GFR (MDRD) Non-Af 24 L, BUN/Creatinine Ratio 21.8 H, Glucose 744 H*, Calcium 7.2 L 01/23/18 00:05: Total Creatine Kinase 06091 H 01/23/18 00:05: Lactic Acid 1.6 01/23/18 01:00: Glucose 713 H* 01/23/18 03:01: POC Glucose > 500 H* 01/23/18 03:05: WBC 11.4 H, RBC 3.78 L, Hgb 11.3 L, Hct 36.8 L, MCV 97.4, MCH 29.9, MCHC 30.7 L, RDW 13.9, RDW Differential 50.2 H, Plt Count 282, MPV 8.9 01/23/18 03:05: Sodium 140, Potassium 5.9 H, Chloride 109 H, Carbon Dioxide 8.0 L*, Anion Gap 23 H, BUN 50 H, Creatinine 2.36 H, Estim Creat Clear Calc 18.61, Est GFR (MDRD) Af Amer 26 L, Est GFR (MDRD) Non-Af 22 L, BUN/Creatinine Ratio 21.2 H, Glucose 680 H*, Calcium 7.3 L 01/23/18 03:22: Specimen Type ART, Sample Site L Radial, pH 6.97 L*, Bicarbonate Actual 5.6 L, POC Total CO2 6, Base Excess -26 L, O2 Saturation 96, O2 % 25, ABG pCO2 24.4 L, ABG pO2 122 H, Respiration Rate 14, O2 Delivery Device Vent, Minute Volume 7.00, Vent Mode A-C, Tidal Volume 450, POC PEEP 5, Blood Gas Notified Whom ICU MD, Blood Gas Notified Time 321 01/23/18 05:01: POC Glucose > 500 H* 01/23/18 05:59: POC Glucose > 500 H* 01/23/18 06:58: Sodium 141, Potassium 4.7, Chloride 112 H, Carbon Dioxide 8.0 L* , Anion Gap 21 H, BUN 49 H, Creatinine 2.45 H, Estim Creat Clear Calc 17.92, Est GFR (MDRD) Af Amer 25 L, Est GFR (MDRD) Non-Af 21 L, BUN/Creatinine Ratio 20.0, Glucose 589 H*, Calcium 7.1 L, Triglycerides 199 01/23/18 06:58: Total Creatine Kinase Pending 01/23/18 07:01: POC Glucose 442 H 01/23/18 08:09: POC Glucose 476 H* Current Medications Albuterol Sulfate (Ventolin Aerosols) 2.5 mg INHALATION Q2H PRN PRN PRN Reason: SHORTNESS OF BREATH Albuterol Sulfate (Ventolin Aerosols) 2.5 mg INHALATION Q4H.RT [facility] Last Admin: 01/23/18 06:29 Dose: 2.5 mg Chlorhexidine Gluconate () 15 ml PO BID [facility] Last Admin: 01/22/18 21:59 Dose: 15 ml Dextrose (D50w Syringe) 0 gm IV X1 PRN; Protocol PRN Reason: HYPOGLYCEMIA Norepinephrine Bitartrate 8 mg (/ Dextrose) 258 mls @ 9.68 mls/hr IV .[id number] [facility] [place] Last Admin: 01/23/18 04:01 Dose: 9.68 mls/hr Insulin Human Lispro 100 unit/ (Sodium Chloride) 100 mls @ 7.24 mls/hr IV .[id number] [facility]; Protocol Sodium Chloride () 250 mls @ 15 mls/hr IV .[id number] PRN PRN Reason: SALINE FLUSH Vasopressin 40 units/ Sodium (Chloride) 52 mls @ 3.12 mls/hr IV .[id number] [facility] [place] Last Admin: 01/23/18 04:17 Dose: 3.12 mls/hr Lactated Ringer's () 1,000 mls @ 150 mls/hr IV .[id number] [facility] [place] Last Admin: 01/23/18 07:11 Dose: 150 mls/hr Meropenem 500 mg/ Sodium (Chloride) 60 mls @ 100 mls/hr IV Q12 [facility] Last Admin: 01/23/18 08:17 Dose: 100 mls/hr Propofol (Diprivan) 1,000 mg in 100 mls @ 1.983 mls/hr CONT INF .Q12H [facility] [place]; Protocol Last Admin: 01/23/18 07:13 Dose: 1.983 mls/hr Magnesium Hydroxide (Milk Of Magnesia) 30 ml PO DAILY PRN PRN PRN Reason: Constipation Sodium Chloride () 5 - 30 ml IV UD PRN PRN Reason: SALINE FLUSH Sodium Chloride () 10 - 40 ml IV UD PRN PRN Reason: MULTILUMEN/HICMAN CATH FLUSH Last Admin: 01/23/18 04:01 Dose: 20 ml Medical Necessity - Tobacco Use Smoking Status: Never smoker Tobacco Use: Non-smoker Assessment/Plan All Active Problems (Last Reviewed 01/22/18 @ 19:39 by Jamar Saxena DO) Respiratory failure (Acute) Metabolic acidosis (Acute) DKA (diabetic ketoacidoses) (Acute) Hypothermia (Acute) Sinusitis (Acute) Hyperkalemia (Acute) Rhabdomyolysis (Acute) DKA, type 1 (Acute) UTI (urinary tract infection) (Acute) 1. DKA with type 1 DM/Metabolic encephalopathy 2/2 metabolic acidosis and respiratory failure/BETH/Elevated troponin 2/2 rhabdomyolysis/Hypovolemic shock/?DIC - DKA protocol with insulin drip - IVF@150 - Oliva in place monitor I/O - C/w sedation for now - Levophed and vasopressin for hemodynamic support - C/w meropenem for shock and what appears to be sinusitis DVT: SCDs Diet: NPO DNRCC-A Code Visit Inpatient E&M: 54061 Subs Hosp L2
[2018-01-23 08:37] LABS: CPK Total, Creatine Kinase 14573 U/L (26-192)
[2018-01-23 09:21] LABS: Bedside Glucose 462 mg/dL (70-110)
[2018-01-23] MEDS: Chlorhexidine 15 ML PO ×2 (10:22→22:45)
[2018-01-23 11:26] LABS: Bedside Glucose 395 mg/dL (70-110)
[2018-01-23 11:26] LABS: Bedside Glucose 413 mg/dL (70-110)
[2018-01-23 12:10] LABS: Bedside Glucose 373 mg/dL (70-110)
[2018-01-23] MEDS: Famotidine 20 MG Tablet GT (12:16)
[2018-01-23 12:53] LABS: Anion Gap 19 (5-15); BUN 53 mg/dL (7-18); BUN/Creat Ratio 19.6 RATIO (10-20); Calcium,Total 7.4 mg/dL (8.5-10.1); Chloride 113 mmol/L (98-107); EST Glomerular Filtration Rate 18 mL/min (>60); Est Glom Filt Rate - Afr Amer 22 mL/min (>60); Estimated Creatinine Clearance 16.26 ml/min; Glucose 371 mg/dL (74-106); Potassium 4.4 mmol/L (3.5-5.1); Sodium Level 145 mmol/L (136-145)
[2018-01-23 13:20] LABS: Bedside Glucose 356 mg/dL (70-110)
[2018-01-23] MEDS: CHLORHEXIDINE GLUC 2% CLOTH 1 EACH TOWELETTE TOPICAL (14:34)
[2018-01-23] MEDS: Heparin Injection (Vial) 5,000 UNIT/ML VIAL 5000 UNIT SC ×2 (14:36→22:56)
[2018-01-23 15:16] LABS: Bedside Glucose 292 mg/dL (70-110)
[2018-01-23 16:26] LABS: Bedside Glucose 275 mg/dL (70-110)
[2018-01-23] MEDS: fentaNYL drip 100 ML 2.5 MCG IV ×2 (16:29→22:26)
[2018-01-23 16:43] LABS: Anion Gap 15 (5-15); BUN 52 mg/dL (7-18); BUN/Creat Ratio 18.6 RATIO (10-20); Calcium,Total 7.5 mg/dL (8.5-10.1); Chloride 115 mmol/L (98-107); Creatinine, Serum 2.79 mg/dL (0.55-1.02); EST Glomerular Filtration Rate 18 mL/min (>60); Est Glom Filt Rate - Afr Amer 21 mL/min (>60); Estimated Creatinine Clearance 15.74 ml/min; Glucose 282 mg/dL (74-106); Potassium 4.3 mmol/L (3.5-5.1); Sodium Level 144 mmol/L (136-145)
[2018-01-23 17:31] LABS: Bedside Glucose 276 mg/dL (70-110)
[2018-01-23 18:26] LABS: Bedside Glucose 275 mg/dL (70-110)
[2018-01-23 19:36] LABS: Bedside Glucose 248 mg/dL (70-110)
[2018-01-23 20:35] LABS: Bedside Glucose 253 mg/dL (70-110)
[2018-01-23 20:42] LABS: BUN 52 mg/dL (7-18); Creatinine, Serum 2.82 mg/dL (0.55-1.02); Estimated Creatinine Clearance 15.57 ml/min; Glucose 264 mg/dL (74-106)
[2018-01-23 20:43] LABS: Anion Gap 12 (5-15); BUN/Creat Ratio 18.4 RATIO (10-20); Calcium,Total 7.5 mg/dL (8.5-10.1); Chloride 116 mmol/L (98-107); EST Glomerular Filtration Rate 18 mL/min (>60); Est Glom Filt Rate - Afr Amer 21 mL/min (>60); Potassium 4.3 mmol/L (3.5-5.1); Sodium Level 144 mmol/L (136-145)
[2018-01-23 21:41] LABS: Bedside Glucose 258 mg/dL (70-110)
--- NOTE | 2018-01-23 22:22 | NURSING ---
Took over care of patient at 21:45. Report received. Assessment complete.
[2018-01-23 22:45] LABS: Bedside Glucose 229 mg/dL (70-110)
[2018-01-23] MEDS: Dextrose 5%-Lactated Ringers 1,000 ML 150 ML IV (23:15)
[2018-01-23 23:41] LABS: Bedside Glucose 197 mg/dL (70-110)
[2018-01-24] VITALS (66 sets, daily range): BP systolic 88–145; BP diastolic 45–79; PULSE 78–96; RESP 14–23; TEMP 37.5–39.2; O2SAT 97–100
[2018-01-24 00:36] LABS: Bedside Glucose 199 mg/dL (70-110)
[2018-01-24 01:41] LABS: Bedside Glucose 189 mg/dL (70-110)
[2018-01-24] MEDS: CHLORHEXIDINE GLUC 2% CLOTH 1 EACH TOWELETTE TOPICAL (02:33)
[2018-01-24 02:41] LABS: Bedside Glucose 166 mg/dL (70-110)
[2018-01-24] MEDS: 0.9% NaCl Peripheral Flush Adult/Peds IV (03:30)
[2018-01-24 03:45] LABS: Bedside Glucose 173 mg/dL (70-110)
[2018-01-24 03:55] LABS: Absolute Lymphocyte Count 0.73 X10^3/ul (0.83-4.51); Absolute Neutrophil Count 5.6 X10^3/uL (2.0-7.7); Hematocrit 29.9 % (37-47); Hemoglobin 10.4 g/dl (12.0-15.0); Lymphocyte # 0.73 X10^3/ul (4.0); Lymphocyte % 10.5 % (19-41); Mean Corp Hgb Conc 34.8 g/gl (32-36); Mean Corpuscular Hgb 30.3 pg (27.0-32.0); Mean Corpuscular Volume 87.2 fL (81-99); Mean Platelet Vol. 8.5 fl (6.2-12.0); Monocyte# 0.63 X10^3/uL; Monocyte% 9.1 % (0-10); Neutrophil # 5.59 X10^3/uL (2.7-7.7); Neutrophil % 80.3 % (47-70); Platelet Count 182 K/mm3 (150-450); RBC Distribution Width SD 44.5 fl (35.1-43.9); Red Blood Count 3.43 M/mm3 (4.2-5.4)
[2018-01-24 03:56] LABS: Differential Indicated SCAN CRITERIA MET; POSITIVE COUNT NO; POSITIVE DIFFERENTIAL NO; POSITIVE MORPHOLOGY YES
[2018-01-24 04:01] LABS: BUN 53 mg/dL (7-18); Creatinine, Serum 2.94 mg/dL (0.55-1.02); Glucose 179 mg/dL (74-106)
[2018-01-24 04:02] LABS: Anion Gap 13 (5-15); Calcium,Total 7.6 mg/dL (8.5-10.1); Chloride 117 mmol/L (98-107); EST Glomerular Filtration Rate 17 mL/min (>60); Est Glom Filt Rate - Afr Amer 20 mL/min (>60); Estimated Creatinine Clearance 14.94 ml/min; Potassium 3.5 mmol/L (3.5-5.1); Sodium Level 147 mmol/L (136-145)
[2018-01-24 04:35] LABS: Bedside Glucose 171 mg/dL (70-110)
[2018-01-24 04:54] LABS: Differential Comment SCANNED
[2018-01-24] MEDS: Dextrose 5%-Lactated Ringers 1,000 ML 150 ML IV (05:09)
[2018-01-24] MEDS: Heparin Injection (Vial) 5,000 UNIT/ML VIAL 5000 UNIT SC ×3 (05:12→21:02)
[2018-01-24] MEDS: fentaNYL drip 100 ML 2.5 MCG IV ×4 (05:17→20:55)
--- NOTE | 2018-01-24 05:50 | NURSING ---
Consent over the phone obtained from daughter, and with witness of two RN's, for a-line placement.
--- NOTE | 2018-01-24 06:00 | NURSING ---
Dr. Marsh inserted A line to right radial artery using ultrasound guided. Confirmed placement with return of bright red blood and waveform on monitor. Pt tolerated well and maintained stable blood pressure and heartrate throughout procedure.
--- NOTE | 2018-01-24 07:07 | PCM.PN.BLA ---
Progress Note Arterial Line Placement Note Procedure: Right Radial Artery Arterial Line. Indication: Septic Shock Performed By: Dr. Ron Crane Consent: Consent was obtained from the patient's family prior to the procedure. Indications, risks, and benefits were explained at length. Procedure Summary: A time-out was performed. The patient?s right wrist region was prepped and draped in sterile fashion using chlorhexidine scrub. The radial artery was accessed under ultrasound guidance using a 20g Arrow dart. The guidewire was advanced through the needle and the catheter was advanced over the guidewire with appropriate pulsatile blood return. The catheter was then sutured in place to the skin and a sterile dressing was applied. Perfusion to the extremity distal to the point of catheter insertion was checked and found to be adequate. Complications: NONE Estimated Blood Loss: 10ml Code Visit Procedures: 35231 Insertion Catheter Artery
[2018-01-24 07:10] LABS: Bedside Glucose 147 mg/dL (70-110)
[2018-01-24 07:10] LABS: Bedside Glucose 139 mg/dL (70-110)
[2018-01-24] MEDS: fentaNYL 100 MCG/2 ML Ampul 25 MCG IV (07:17)
--- NOTE | 2018-01-24 07:28 | PCM.PN.INT ---
Subjective: The patient was seen and examined at the bedside this morning. Events from the last 24 hours have been reviewed. The patient currently has a low-grade fever with a T-max of 101.0 ?F in the last 24 hours. The patient's presenting leukocytosis has resolved. The patient's anion gap has been close now x3. Urine output remains appropriate. The patient's vasopressin has been discontinued. She is currently overall net +4.6 L for the admission. An arterial line was placed this morning by the overnight hospitalist. Objective: The patient's most recent lab work, culture data and imaging studies have all been personally reviewed. Respiratory viral panel was positive for rhinovirus. Sputum culture did reveal 4+ gram-positive cocci and 1+ gram-positive rods. Blood and urine cultures are pending. General: - - Remains intubated, sedated and mechanically ventilated. HEENT: Atraumatic, PERRLA, Normocephalic Oral: No Gingival or Mucosal Lesions/ Ulcerations, - - Endotracheal and OG tubes in place. Neck: Supple, No Nodes, Trachea Midline, - - Stable central venous catheter in place. Lungs: No rhonchi, No wheeze, No rales, Diminished Cardiovascular: Regular rate, Regular Rhythm, Normal S1, Normal S2, No murmurs Abdomen: Bowel Sounds Present, Soft, Non Tender Extremities: No clubbing, No cyanosis, No edema Skin: No breakdown Musculoskeletal: No Tenderness to Palpation of Joints or Extremities Lymphatic: No Cervical, Supraclavicular, or Inguinal Adenopathy Neurological: - - No focal neurological deficits. Currently sedated. Vital Signs Temp Pulse Resp BP Pulse Ox 99.8 F H 90 15 112/65 99 01/24/18 05:27 01/24/18 05:27 01/24/18 05:28 01/24/18 05:27 01/24/18 05:28 Oxygen Delivery Method Mechanical Ventilator Weight: 150 lb 12.739 oz Body Mass Index (BMI) 23.9 Finger Stick Blood Glucose 147 Intake and Output for Last 24 Hours 01/22/18 01/23/18 01/24/18 23:59 23:59 23:59 Intake Total 6548.6 / 6548.6 Output Total 1920 / 1920 Balance 4628.6 / 4628.6 Labs (Last 48 Hours) 01/22/18 01/22/1818 17:31 17:31 17:31 WBC 15.0 H RBC 3.66 L Hgb 11.1 L Hct 39.8 MCV 108.7 H MCH 30.3 MCHC 27.9 L RDW 14.4 RDW Differential 57.2 H Plt Count 350 MPV 9.9 Immature Gran % (Auto) Neut % (Auto) Not Reportable Lymph % (Auto) Citrus % (Auto) Eos % (Auto) Baso % (Auto) Absolute Neuts (auto) Not Reportable Absolute Lymphs (auto) Total Counted Not Reportable Differential Comment PT 17.1 H INR 1.4 Fibrinogen D-Dimer Quant (PE/DVT) Specimen Type Sample Site pH Bicarbonate Actual POC Total CO2 Base Excess O2 Saturation O2 % ABG pCO2 ABG pO2 Boyd Test Respiration Rate O2 Delivery Device Minute Volume Vent Mode Tidal Volume POC PEEP Blood Gas Notified Whom Blood Gas Notified Time Sodium 130 L Potassium 7.4 H* Chloride 96 L Carbon Dioxide 5.0 L* Anion Gap 29 H BUN 48 H Creatinine 2.44 H Estim Creat Clear Calc 18.00 Est GFR (MDRD) Af Amer 25 L Est GFR (MDRD) Non-Af 21 L BUN/Creatinine Ratio 19.7 Glucose 1143 H* Hemoglobin A1c Lactic Acid Calcium 8.7 Magnesium Total Bilirubin 0.20 AST 94 H ALT 52 Alkaline Phosphatase 149 H Total Creatine Kinase Troponin I 0.087 H Total Protein 6.5 Albumin 3.0 L Globulin 3.5 Albumin/Globulin Ratio 0.9 Triglycerides TSH Urine Color Urine Clarity Urine pH Ur Specific [place] Urine Protein Urine Glucose (UA) Urine Ketones Urine Occult Blood Urine Nitrite Urine Bilirubin Urine Urobilinogen Ur Leukocyte Esterase Urine RBC Urine WBC Ur Squamous Epith Cells Amorphous Sediment Urine Bacteria Coarse Granular Casts Urine Mucus Acetone Level MRSA (PCR) POC Glucose 01/22/18 01/22/18 01/22/18 17:31 17:31 17:31 WBC RBC Hgb Hct MCV MCH MCHC RDW RDW Differential Plt Count MPV Immature Gran % (Auto) Neut % (Auto) Lymph % (Auto) [place] % (Auto) Eos % (Auto) Baso % (Auto) Absolute Neuts (auto) Absolute Lymphs (auto) Total Counted Differential Comment PT INR Fibrinogen D-Dimer Quant (PE/DVT) Specimen Type Sample Site pH Bicarbonate Actual POC Total CO2 Base Excess O2 Saturation O2 % ABG pCO2 ABG pO2 Boyd Test Respiration Rate O2 Delivery Device Minute Volume Vent Mode Tidal Volume POC PEEP Blood Gas Notified Whom Blood Gas Notified Time Sodium Potassium Chloride Carbon Dioxide Anion Gap BUN Creatinine Estim Creat Clear Calc Est GFR (MDRD) Af Amer Est GFR (MDRD) Non-Af BUN/Creatinine Ratio Glucose Hemoglobin A1c Lactic Acid Cancelled Calcium Magnesium 4.0 H Total Bilirubin AST ALT Alkaline Phosphatase Total Creatine Kinase 3020 H Troponin I Total Protein Albumin Globulin Albumin/Globulin Ratio Triglycerides TSH Urine Color Urine Clarity Urine pH Ur Specific [place] Urine Protein Urine Glucose (UA) Urine Ketones Urine Occult Blood Urine Nitrite Urine Bilirubin Urine Urobilinogen Ur Leukocyte Esterase Urine RBC Urine WBC Ur Squamous Epith Cells Amorphous Sediment Urine Bacteria Coarse Granular Casts Urine Mucus Acetone Level MRSA (PCR) POC Glucose 01/22/18 01/22/18 01/22/18 18:07 18:08 18:21 WBC RBC Hgb Hct MCV MCH MCHC RDW RDW Differential Plt Count MPV Immature Gran % (Auto) Neut % (Auto) Lymph % (Auto) [place] % (Auto) Eos % (Auto) Baso % (Auto) Absolute Neuts (auto) Absolute Lymphs (auto) Total Counted Differential Comment PT INR Fibrinogen D-Dimer Quant (PE/DVT) Specimen Type ART Sample Site L Femoral pH 6.67 L* Bicarbonate Actual 3.6 L POC Total CO2 < 5 Base Excess < -30 L O2 Saturation 100 H O2 % 100 ABG pCO2 31.4 L ABG pO2 656 H* Boyd Test NA Respiration Rate 12 O2 Delivery Device Vent Minute Volume Vent Mode A-C Tidal Volume 450 POC PEEP 5 Blood Gas Notified Whom ED Blood Gas Notified Time 181 Sodium Potassium Chloride Carbon Dioxide Anion Gap BUN Creatinine Estim Creat Clear Calc Est GFR (MDRD) Af Amer Est GFR (MDRD) Non-Af BUN/Creatinine Ratio Glucose Hemoglobin A1c Lactic Acid Calcium Magnesium Total Bilirubin AST ALT Alkaline Phosphatase Total Creatine Kinase Troponin I Total Protein Albumin Globulin Albumin/Globulin Ratio Triglycerides TSH Urine Color Yellow Urine Clarity Clear Urine pH 5.0 Ur Specific [place] 1.020 Urine Protein 30 H Urine Glucose (UA) 1000 H Urine Ketones 150 H Urine Occult Blood 250 H Urine Nitrite Negative Urine Bilirubin Negative Urine Urobilinogen Normal Ur Leukocyte Esterase Negative Urine RBC 0 SEEN Urine WBC 0-5 SEEN Ur Squamous Epith Cells 0-5 SEEN Amorphous Sediment 1+ Urine Bacteria RARE Coarse Granular Casts 0-5 SEEN Urine Mucus 0 SEEN Acetone Level MRSA (PCR) POC Glucose > 500 H* 01/22/18 01/22/18 01/22/18 18:30 18:30 18:30 WBC RBC Hgb Hct MCV MCH MCHC RDW RDW Differential Plt Count MPV Immature Gran % (Auto) Neut % (Auto) Lymph % (Auto) [place] % (Auto) Eos % (Auto) Baso % (Auto) Absolute Neuts (auto) Absolute Lymphs (auto) Total Counted Differential Comment PT INR Fibrinogen 318 D-Dimer Quant (PE/DVT) Specimen Type Sample Site pH Bicarbonate Actual POC Total CO2 Base Excess O2 Saturation O2 % ABG pCO2 ABG pO2 Boyd Test Respiration Rate O2 Delivery Device Minute Volume Vent Mode Tidal Volume POC PEEP Blood Gas Notified Whom Blood Gas Notified Time Sodium Potassium Chloride Carbon Dioxide Anion Gap BUN Creatinine Estim Creat Clear Calc Est GFR (MDRD) Af Amer Est GFR (MDRD) Non-Af BUN/Creatinine Ratio Glucose Hemoglobin A1c Lactic Acid 2.5 H Calcium Magnesium Total Bilirubin AST ALT Alkaline Phosphatase Total Creatine Kinase Troponin I Total Protein Albumin Globulin Albumin/Globulin Ratio Triglycerides TSH Urine Color Urine Clarity Urine pH Ur Specific [place] Urine Protein Urine Glucose (UA) Urine Ketones Urine Occult Blood Urine Nitrite Urine Bilirubin Urine Urobilinogen Ur Leukocyte Esterase Urine RBC Urine WBC Ur Squamous Epith Cells Amorphous Sediment Urine Bacteria Coarse Granular Casts Urine Mucus Acetone Level MODERATE H MRSA (PCR) POC Glucose 01/22/18 01/22/18 01/22/18 18:30 18:30 20:04 WBC RBC Hgb Hct MCV MCH MCHC RDW RDW Differential Plt Count MPV Immature Gran % (Auto) Neut % (Auto) Lymph % (Auto) [place] % (Auto) Eos % (Auto) Baso % (Auto) Absolute Neuts (auto) Absolute Lymphs (auto) Total Counted Differential Comment PT INR Fibrinogen D-Dimer Quant (PE/DVT) 0.79 H* Specimen Type Sample Site pH Bicarbonate Actual POC Total CO2 Base Excess O2 Saturation O2 % ABG pCO2 ABG pO2 Boyd Test Respiration Rate O2 Delivery Device Minute Volume Vent Mode Tidal Volume POC PEEP Blood Gas Notified Whom Blood Gas Notified Time Sodium Potassium Chloride Carbon Dioxide Anion Gap BUN Creatinine Estim Creat Clear Calc Est GFR (MDRD) Af Amer Est GFR (MDRD) Non-Af BUN/Creatinine Ratio Glucose Hemoglobin A1c Lactic Acid Calcium Magnesium Total Bilirubin AST ALT Alkaline Phosphatase Total Creatine Kinase Troponin I Total Protein Albumin Globulin Albumin/Globulin Ratio Triglycerides TSH 1.17 Urine Color Urine Clarity Urine pH Ur Specific [place] Urine Protein Urine Glucose (UA) Urine Ketones Urine Occult Blood Urine Nitrite Urine Bilirubin Urine Urobilinogen Ur Leukocyte Esterase Urine RBC Urine WBC Ur Squamous Epith Cells Amorphous Sediment Urine Bacteria Coarse Granular Casts Urine Mucus Acetone Level MRSA (PCR) POC Glucose > 500 H* 01/22/18 01/22/18 01/22/18 20:15 20:15 20:15 WBC RBC Hgb Hct MCV MCH MCHC RDW RDW Differential Plt Count MPV Immature Gran % (Auto) Neut % (Auto) Lymph % (Auto) [place] % (Auto) Eos % (Auto) Baso % (Auto) Absolute Neuts (auto) Absolute Lymphs (auto) Total Counted Differential Comment PT INR Fibrinogen D-Dimer Quant (PE/DVT) Specimen Type Sample Site pH Bicarbonate Actual POC Total CO2 Base Excess O2 Saturation O2 % ABG pCO2 ABG pO2 Boyd Test Respiration Rate O2 Delivery Device Minute Volume Vent Mode Tidal Volume POC PEEP Blood Gas Notified Whom Blood Gas Notified Time Sodium 136 Potassium 6.4 H* Chloride 106 Carbon Dioxide 4.0 L* Anion Gap 26 H BUN 45 H Creatinine 2.16 H Estim Creat Clear Calc 20.33 Est GFR (MDRD) Af Amer 29 L Est GFR (MDRD) Non-Af 24 L BUN/Creatinine Ratio 20.8 H Glucose 929 H* Hemoglobin A1c 14.2 H Lactic Acid Calcium 7.2 L Magnesium Total Bilirubin AST ALT Alkaline Phosphatase Total Creatine Kinase Troponin I 0.180 H Total Protein Albumin Globulin Albumin/Globulin Ratio Triglycerides TSH Urine Color Urine Clarity Urine pH Ur Specific [place] Urine Protein Urine Glucose (UA) Urine Ketones Urine Occult Blood Urine Nitrite Urine Bilirubin Urine Urobilinogen Ur Leukocyte Esterase Urine RBC Urine WBC Ur Squamous Epith Cells Amorphous Sediment Urine Bacteria Coarse Granular Casts Urine Mucus Acetone Level MRSA (PCR) POC Glucose 01/22/18 01/22/18 01/22/18 20:26 21:12 21:25 WBC RBC Hgb Hct MCV MCH MCHC RDW RDW Differential Plt Count MPV Immature Gran % (Auto) Neut % (Auto) Lymph % (Auto) [place] % (Auto) Eos % (Auto) Baso % (Auto) Absolute Neuts (auto) Absolute Lymphs (auto) Total Counted Differential Comment PT INR Fibrinogen D-Dimer Quant (PE/DVT) Specimen Type ART Sample Site L Brachial pH 6.65 L* Bicarbonate Actual 2.7 L POC Total CO2 < 5 Base Excess < -30 L O2 Saturation 98 O2 % 35 ABG pCO2 25.1 L ABG pO2 223 H Boyd Test Respiration Rate 14 O2 Delivery Device Vent Minute Volume 6.00 Vent Mode A-C Tidal Volume 450 POC PEEP 5 Blood Gas Notified Whom [facility] Blood Gas Notified Time 2020 Sodium Potassium Chloride Carbon Dioxide Anion Gap BUN Creatinine Estim Creat Clear Calc Est GFR (MDRD) Af Amer Est GFR (MDRD) Non-Af BUN/Creatinine Ratio Glucose 886 H* Hemoglobin A1c Lactic Acid Calcium Magnesium Total Bilirubin AST ALT Alkaline Phosphatase Total Creatine Kinase Troponin I Total Protein Albumin Globulin Albumin/Globulin Ratio Triglycerides TSH Urine Color Urine Clarity Urine pH Ur Specific [place] Urine Protein Urine Glucose (UA) Urine Ketones Urine Occult Blood Urine Nitrite Urine Bilirubin Urine Urobilinogen Ur Leukocyte Esterase Urine RBC Urine WBC Ur Squamous Epith Cells Amorphous Sediment Urine Bacteria Coarse Granular Casts Urine Mucus Acetone Level MRSA (PCR) POC Glucose > 500 H* 01/22/18 01/22/18 01/22/18 21:50 23:00 23:00 WBC RBC Hgb Hct MCV MCH MCHC RDW RDW Differential Plt Count MPV Immature Gran % (Auto) Neut % (Auto) Lymph % (Auto) [place] % (Auto) Eos % (Auto) Baso % (Auto) Absolute Neuts (auto) Absolute Lymphs (auto) Total Counted Differential Comment PT INR Fibrinogen D-Dimer Quant (PE/DVT) Specimen Type Sample Site pH Bicarbonate Actual POC Total CO2 Base Excess O2 Saturation O2 % ABG pCO2 ABG pO2 Boyd Test Respiration Rate O2 Delivery Device Minute Volume Vent Mode Tidal Volume POC PEEP Blood Gas Notified Whom Blood Gas Notified Time Sodium Potassium Chloride Carbon Dioxide Anion Gap BUN Creatinine Estim Creat Clear Calc Est GFR (MDRD) Af Amer Est GFR (MDRD) Non-Af BUN/Creatinine Ratio Glucose 773 H* Hemoglobin A1c Lactic Acid Calcium Magnesium Total Bilirubin AST ALT Alkaline Phosphatase Total Creatine Kinase Troponin I 0.276 H Total Protein Albumin Globulin Albumin/Globulin Ratio Triglycerides TSH Urine Color Urine Clarity Urine pH Ur Specific [place] Urine Protein Urine Glucose (UA) Urine Ketones Urine Occult Blood Urine Nitrite Urine Bilirubin Urine Urobilinogen Ur Leukocyte Esterase Urine RBC Urine WBC Ur Squamous Epith Cells Amorphous Sediment Urine Bacteria Coarse Granular Casts Urine Mucus Acetone Level MRSA (PCR) Negative POC Glucose 01/22/18 01/23/18 01/23/18 23:01 00:05 00:05 WBC RBC Hgb Hct MCV MCH MCHC RDW RDW Differential Plt Count MPV Immature Gran % (Auto) Neut % (Auto) Lymph % (Auto) [place] % (Auto) Eos % (Auto) Baso % (Auto) Absolute Neuts (auto) Absolute Lymphs (auto) Total Counted Differential Comment PT INR Fibrinogen D-Dimer Quant (PE/DVT) Specimen Type Sample Site pH Bicarbonate Actual POC Total CO2 Base Excess O2 Saturation O2 % ABG pCO2 ABG pO2 Boyd Test Respiration Rate O2 Delivery Device Minute Volume Vent Mode Tidal Volume POC PEEP Blood Gas Notified Whom Blood Gas Notified Time Sodium 138 Potassium 6.1 H* Chloride 108 H Carbon Dioxide 6.0 L* Anion Gap 24 H BUN 46 H Creatinine 2.11 H Estim Creat Clear Calc 20.81 Est GFR (MDRD) Af Amer 30 L Est GFR (MDRD) Non-Af 24 L BUN/Creatinine Ratio 21.8 H Glucose 744 H* Hemoglobin A1c Lactic Acid Calcium 7.2 L Magnesium Total Bilirubin AST ALT Alkaline Phosphatase Total Creatine Kinase 28438 H Troponin I Total Protein Albumin Globulin Albumin/Globulin Ratio Triglycerides TSH Urine Color Urine Clarity Urine pH Ur Specific [place] Urine Protein Urine Glucose (UA) Urine Ketones Urine Occult Blood Urine Nitrite Urine Bilirubin Urine Urobilinogen Ur Leukocyte Esterase Urine RBC Urine WBC Ur Squamous Epith Cells Amorphous Sediment Urine Bacteria Coarse Granular Casts Urine Mucus Acetone Level MRSA (PCR) POC Glucose > 500 H* 01/23/18 01/23/18 01/23/18 00:05 01:00 03:01 WBC RBC Hgb Hct MCV MCH MCHC RDW RDW Differential Plt Count MPV Immature Gran % (Auto) Neut % (Auto) Lymph % (Auto) [place] % (Auto) Eos % (Auto) Baso % (Auto) Absolute Neuts (auto) Absolute Lymphs (auto) Total Counted Differential Comment PT INR Fibrinogen D-Dimer Quant (PE/DVT) Specimen Type Sample Site pH Bicarbonate Actual POC Total CO2 Base Excess O2 Saturation O2 % ABG pCO2 ABG pO2 Boyd Test Respiration Rate O2 Delivery Device Minute Volume Vent Mode Tidal Volume POC PEEP Blood Gas Notified Whom Blood Gas Notified Time Sodium Potassium Chloride Carbon Dioxide Anion Gap BUN Creatinine Estim Creat Clear Calc Est GFR (MDRD) Af Amer Est GFR (MDRD) Non-Af BUN/Creatinine Ratio Glucose 713 H* Hemoglobin A1c Lactic Acid 1.6 Calcium Magnesium Total Bilirubin AST ALT Alkaline Phosphatase Total Creatine Kinase Troponin I Total Protein Albumin Globulin Albumin/Globulin Ratio Triglycerides TSH Urine Color Urine Clarity Urine pH Ur Specific [place] Urine Protein Urine Glucose (UA) Urine Ketones Urine Occult Blood Urine Nitrite Urine Bilirubin Urine Urobilinogen Ur Leukocyte Esterase Urine RBC Urine WBC Ur Squamous Epith Cells Amorphous Sediment Urine Bacteria Coarse Granular Casts Urine Mucus Acetone Level MRSA (PCR) POC Glucose > 500 H* 01/23/18 01/23/18 01/23/18 03:05 03:05 03:22 WBC 11.4 H RBC 3.78 L Hgb 11.3 L Hct 36.8 L MCV 97.4 MCH 29.9 MCHC 30.7 L RDW 13.9 RDW Differential 50.2 H Plt Count 282 MPV 8.9 Immature Gran % (Auto) Neut % (Auto) Lymph % (Auto) [place] % (Auto) Eos % (Auto) Baso % (Auto) Absolute Neuts (auto) Absolute Lymphs (auto) Total Counted Differential Comment PT INR Fibrinogen D-Dimer Quant (PE/DVT) Specimen Type ART Sample Site L Radial pH 6.97 L* Bicarbonate Actual 5.6 L POC Total CO2 6 Base Excess -26 L O2 Saturation 96 O2 % 25 ABG pCO2 24.4 L ABG pO2 122 H Boyd Test Respiration Rate 14 O2 Delivery Device Vent Minute Volume 7.00 Vent Mode A-C Tidal Volume 450 POC PEEP 5 Blood Gas Notified Whom ICU Blood Gas Notified Time 321 Sodium 140 Potassium 5.9 H Chloride 109 H Carbon Dioxide 8.0 L* Anion Gap 23 H BUN 50 H Creatinine 2.36 H Estim Creat Clear Calc 18.61 Est GFR (MDRD) Af Amer 26 L Est GFR (MDRD) Non-Af 22 L BUN/Creatinine Ratio 21.2 H Glucose 680 H* Hemoglobin A1c Lactic Acid Calcium 7.3 L Magnesium Total Bilirubin AST ALT Alkaline Phosphatase Total Creatine Kinase Troponin I Total Protein Albumin Globulin Albumin/Globulin Ratio Triglycerides TSH Urine Color Urine Clarity Urine pH Ur Specific [place] Urine Protein Urine Glucose (UA) Urine Ketones Urine Occult Blood Urine Nitrite Urine Bilirubin Urine Urobilinogen Ur Leukocyte Esterase Urine RBC Urine WBC Ur Squamous Epith Cells Amorphous Sediment Urine Bacteria Coarse Granular Casts Urine Mucus Acetone Level MRSA (PCR) POC Glucose 01/23/18 01/23/18 01/23/18 05:01 05:59 06:58 WBC RBC Hgb Hct MCV MCH MCHC RDW RDW Differential Plt Count MPV Immature Gran % (Auto) Neut % (Auto) Lymph % (Auto) [place] % (Auto) Eos % (Auto) Baso % (Auto) Absolute Neuts (auto) Absolute Lymphs (auto) Total Counted Differential Comment PT INR Fibrinogen D-Dimer Quant (PE/DVT) Specimen Type Sample Site pH Bicarbonate Actual POC Total CO2 Base Excess O2 Saturation O2 % ABG pCO2 ABG pO2 Boyd Test Respiration Rate O2 Delivery Device Minute Volume Vent Mode Tidal Volume POC PEEP Blood Gas Notified Whom Blood Gas Notified Time Sodium 141 Potassium 4.7 Chloride 112 H Carbon Dioxide 8.0 L* Anion Gap 21 H BUN 49 H Creatinine 2.45 H Estim Creat Clear Calc 17.92 Est GFR (MDRD) Af Amer 25 L Est GFR (MDRD) Non-Af 21 L BUN/Creatinine Ratio 20.0 Glucose 589 H* Hemoglobin A1c Lactic Acid Calcium 7.1 L Magnesium Total Bilirubin AST ALT Alkaline Phosphatase Total Creatine Kinase Troponin I Total Protein Albumin Globulin Albumin/Globulin Ratio Triglycerides 199 TSH Urine Color Urine Clarity Urine pH Ur Specific [place] Urine Protein Urine Glucose (UA) Urine Ketones Urine Occult Blood Urine Nitrite Urine Bilirubin Urine Urobilinogen Ur Leukocyte Esterase Urine RBC Urine WBC Ur Squamous Epith Cells Amorphous Sediment Urine Bacteria Coarse Granular Casts Urine Mucus Acetone Level MRSA (PCR) POC Glucose > 500 H* > 500 H* 01/23/18 01/23/18 01/23/18 06:58 07:01 08:09 WBC RBC Hgb Hct MCV MCH MCHC RDW RDW Differential Plt Count MPV Immature Gran % (Auto) Neut % (Auto) Lymph % (Auto) [place] % (Auto) Eos % (Auto) Baso % (Auto) Absolute Neuts (auto) Absolute Lymphs (auto) Total Counted Differential Comment PT INR Fibrinogen D-Dimer Quant (PE/DVT) Specimen Type Sample Site pH Bicarbonate Actual POC Total CO2 Base Excess O2 Saturation O2 % ABG pCO2 ABG pO2 Boyd Test Respiration Rate O2 Delivery Device Minute Volume Vent Mode Tidal Volume POC PEEP Blood Gas Notified Whom Blood Gas Notified Time Sodium Potassium Chloride Carbon Dioxide Anion Gap BUN Creatinine Estim Creat Clear Calc Est GFR (MDRD) Af Amer Est GFR (MDRD) Non-Af BUN/Creatinine Ratio Glucose Hemoglobin A1c Lactic Acid Calcium Magnesium Total Bilirubin AST ALT Alkaline Phosphatase Total Creatine Kinase 84002 H Troponin I Total Protein Albumin Globulin Albumin/Globulin Ratio Triglycerides TSH Urine Color Urine Clarity Urine pH Ur Specific [place] Urine Protein Urine Glucose (UA) Urine Ketones Urine Occult Blood Urine Nitrite Urine Bilirubin Urine Urobilinogen Ur Leukocyte Esterase Urine RBC Urine WBC Ur Squamous Epith Cells Amorphous Sediment Urine Bacteria Coarse Granular Casts Urine Mucus Acetone Level MRSA (PCR) POC Glucose 442 H 476 H* 01/23/18 01/23/18 01/23/18 09:08 10:07 11:14 WBC RBC Hgb Hct MCV MCH MCHC RDW RDW Differential Plt Count MPV Immature Gran % (Auto) Neut % (Auto) Lymph % (Auto) [place] % (Auto) Eos % (Auto) Baso % (Auto) Absolute Neuts (auto) Absolute Lymphs (auto) Total Counted Differential Comment PT INR Fibrinogen D-Dimer Quant (PE/DVT) Specimen Type Sample Site pH Bicarbonate Actual POC Total CO2 Base Excess O2 Saturation O2 % ABG pCO2 ABG pO2 Boyd Test Respiration Rate O2 Delivery Device Minute Volume Vent Mode Tidal Volume POC PEEP Blood Gas Notified Whom Blood Gas Notified Time Sodium Potassium Chloride Carbon Dioxide Anion Gap BUN Creatinine Estim Creat Clear Calc Est GFR (MDRD) Af Amer Est GFR (MDRD) Non-Af BUN/Creatinine Ratio Glucose Hemoglobin A1c Lactic Acid Calcium Magnesium Total Bilirubin AST ALT Alkaline Phosphatase Total Creatine Kinase Troponin I Total Protein Albumin Globulin Albumin/Globulin Ratio Triglycerides TSH Urine Color Urine Clarity Urine pH Ur Specific [place] Urine Protein Urine Glucose (UA) Urine Ketones Urine Occult Blood Urine Nitrite Urine Bilirubin Urine Urobilinogen Ur Leukocyte Esterase Urine RBC Urine WBC Ur Squamous Epith Cells Amorphous Sediment Urine Bacteria Coarse Granular Casts Urine Mucus Acetone Level MRSA (PCR) POC Glucose 462 H* 395 H 413 H 01/23/18 01/23/18 01/23/18 12:04 12:25 13:13 WBC RBC Hgb Hct MCV MCH MCHC RDW RDW Differential Plt Count MPV Immature Gran % (Auto) Neut % (Auto) Lymph % (Auto) [place] % (Auto) Eos % (Auto) Baso % (Auto) Absolute Neuts (auto) Absolute Lymphs (auto) Total Counted Differential Comment PT INR Fibrinogen D-Dimer Quant (PE/DVT) Specimen Type Sample Site pH Bicarbonate Actual POC Total CO2 Base Excess O2 Saturation O2 % ABG pCO2 ABG pO2 Boyd Test Respiration Rate O2 Delivery Device Minute Volume Vent Mode Tidal Volume POC PEEP Blood Gas Notified Whom Blood Gas Notified Time Sodium 145 Potassium 4.4 Chloride 113 H Carbon Dioxide 13.0 L Anion Gap 19 H BUN 53 H Creatinine 2.70 H Estim Creat Clear Calc 16.26 Est GFR (MDRD) Af Amer 22 L Est GFR (MDRD) Non-Af 18 L BUN/Creatinine Ratio 19.6 Glucose 371 H Hemoglobin A1c Lactic Acid Calcium 7.4 L Magnesium Total Bilirubin AST ALT Alkaline Phosphatase Total Creatine Kinase Troponin I Total Protein Albumin Globulin Albumin/Globulin Ratio Triglycerides TSH Urine Color Urine Clarity Urine pH Ur Specific [place] Urine Protein Urine Glucose (UA) Urine Ketones Urine Occult Blood Urine Nitrite Urine Bilirubin Urine Urobilinogen Ur Leukocyte Esterase Urine RBC Urine WBC Ur Squamous Epith Cells Amorphous Sediment Urine Bacteria Coarse Granular Casts Urine Mucus Acetone Level MRSA (PCR) POC Glucose 373 H 356 H 01/23/18 01/23/18 01/23/18 15:05 16:01 16:20 WBC RBC Hgb Hct MCV MCH MCHC RDW RDW Differential Plt Count MPV Immature Gran % (Auto) Neut % (Auto) Lymph % (Auto) [place] % (Auto) Eos % (Auto) Baso % (Auto) Absolute Neuts (auto) Absolute Lymphs (auto) Total Counted Differential Comment PT INR Fibrinogen D-Dimer Quant (PE/DVT) Specimen Type Sample Site pH Bicarbonate Actual POC Total CO2 Base Excess O2 Saturation O2 % ABG pCO2 ABG pO2 Boyd Test Respiration Rate O2 Delivery Device Minute Volume Vent Mode Tidal Volume POC PEEP Blood Gas Notified Whom Blood Gas Notified Time Sodium 144 Potassium 4.3 Chloride 115 H Carbon Dioxide 14.0 L Anion Gap 15 BUN 52 H Creatinine 2.79 H Estim Creat Clear Calc 15.74 Est GFR (MDRD) Af Amer 21 L Est GFR (MDRD) Non-Af 18 L BUN/Creatinine Ratio 18.6 Glucose 282 H Hemoglobin A1c Lactic Acid Calcium 7.5 L Magnesium Total Bilirubin AST ALT Alkaline Phosphatase Total Creatine Kinase Troponin I Total Protein Albumin Globulin Albumin/Globulin Ratio Triglycerides TSH Urine Color Urine Clarity Urine pH Ur Specific [place] Urine Protein Urine Glucose (UA) Urine Ketones Urine Occult Blood Urine Nitrite Urine Bilirubin Urine Urobilinogen Ur Leukocyte Esterase Urine RBC Urine WBC Ur Squamous Epith Cells Amorphous Sediment Urine Bacteria Coarse Granular Casts Urine Mucus Acetone Level MRSA (PCR) POC Glucose 292 H 275 H 01/23/18 01/23/18 01/23/18 17:18 18:19 19:29 WBC RBC Hgb Hct MCV MCH MCHC RDW RDW Differential Plt Count MPV Immature Gran % (Auto) Neut % (Auto) Lymph % (Auto) [place] % (Auto) Eos % (Auto) Baso % (Auto) Absolute Neuts (auto) Absolute Lymphs (auto) Total Counted Differential Comment PT INR Fibrinogen D-Dimer Quant (PE/DVT) Specimen Type Sample Site pH Bicarbonate Actual POC Total CO2 Base Excess O2 Saturation O2 % ABG pCO2 ABG pO2 Boyd Test Respiration Rate O2 Delivery Device Minute Volume Vent Mode Tidal Volume POC PEEP Blood Gas Notified Whom Blood Gas Notified Time Sodium Potassium Chloride Carbon Dioxide Anion Gap BUN Creatinine Estim Creat Clear Calc Est GFR (MDRD) Af Amer Est GFR (MDRD) Non-Af BUN/Creatinine Ratio Glucose Hemoglobin A1c Lactic Acid Calcium Magnesium Total Bilirubin AST ALT Alkaline Phosphatase Total Creatine Kinase Troponin I Total Protein Albumin Globulin Albumin/Globulin Ratio Triglycerides TSH Urine Color Urine Clarity Urine pH Ur Specific [place] Urine Protein Urine Glucose (UA) Urine Ketones Urine Occult Blood Urine Nitrite Urine Bilirubin Urine Urobilinogen Ur Leukocyte Esterase Urine RBC Urine WBC Ur Squamous Epith Cells Amorphous Sediment Urine Bacteria Coarse Granular Casts Urine Mucus Acetone Level MRSA (PCR) POC Glucose 276 H 275 H 248 H 01/23/18 01/23/18 01/23/18 20:10 20:27 21:31 WBC RBC Hgb Hct MCV MCH MCHC RDW RDW Differential Plt Count MPV Immature Gran % (Auto) Neut % (Auto) Lymph % (Auto) [place] % (Auto) Eos % (Auto) Baso % (Auto) Absolute Neuts (auto) Absolute Lymphs (auto) Total Counted Differential Comment PT INR Fibrinogen D-Dimer Quant (PE/DVT) Specimen Type Sample Site pH Bicarbonate Actual POC Total CO2 Base Excess O2 Saturation O2 % ABG pCO2 ABG pO2 Boyd Test Respiration Rate O2 Delivery Device Minute Volume Vent Mode Tidal Volume POC PEEP Blood Gas Notified Whom Blood Gas Notified Time Sodium 144 Potassium 4.3 Chloride 116 H Carbon Dioxide 16.0 L Anion Gap 12 BUN 52 H Creatinine 2.82 H Estim Creat Clear Calc 15.57 Est GFR (MDRD) Af Amer 21 L Est GFR (MDRD) Non-Af 18 L BUN/Creatinine Ratio 18.4 Glucose 264 H Hemoglobin A1c Lactic Acid Calcium 7.5 L Magnesium Total Bilirubin AST ALT Alkaline Phosphatase Total Creatine Kinase Troponin I Total Protein Albumin Globulin Albumin/Globulin Ratio Triglycerides TSH Urine Color Urine Clarity Urine pH Ur Specific [place] Urine Protein Urine Glucose (UA) Urine Ketones Urine Occult Blood Urine Nitrite Urine Bilirubin Urine Urobilinogen Ur Leukocyte Esterase Urine RBC Urine WBC Ur Squamous Epith Cells Amorphous Sediment Urine Bacteria Coarse Granular Casts Urine Mucus Acetone Level MRSA (PCR) POC Glucose 253 H 258 H 01/23/18 01/23/18 01/24/18 22:39 23:33 00:30 WBC RBC Hgb Hct MCV MCH MCHC RDW RDW Differential Plt Count MPV Immature Gran % (Auto) Neut % (Auto) Lymph % (Auto) [place] % (Auto) Eos % (Auto) Baso % (Auto) Absolute Neuts (auto) Absolute Lymphs (auto) Total Counted Differential Comment PT INR Fibrinogen D-Dimer Quant (PE/DVT) Specimen Type Sample Site pH Bicarbonate Actual POC Total CO2 Base Excess O2 Saturation O2 % ABG pCO2 ABG pO2 Boyd Test Respiration Rate O2 Delivery Device Minute Volume Vent Mode Tidal Volume POC PEEP Blood Gas Notified Whom Blood Gas Notified Time Sodium Potassium Chloride Carbon Dioxide Anion Gap BUN Creatinine Estim Creat Clear Calc Est GFR (MDRD) Af Amer Est GFR (MDRD) Non-Af BUN/Creatinine Ratio Glucose Hemoglobin A1c Lactic Acid Calcium Magnesium Total Bilirubin AST ALT Alkaline Phosphatase Total Creatine Kinase Troponin I Total Protein Albumin Globulin Albumin/Globulin Ratio Triglycerides TSH Urine Color Urine Clarity Urine pH Ur Specific [place] Urine Protein Urine Glucose (UA) Urine Ketones Urine Occult Blood Urine Nitrite Urine Bilirubin Urine Urobilinogen Ur Leukocyte Esterase Urine RBC Urine WBC Ur Squamous Epith Cells Amorphous Sediment Urine Bacteria Coarse Granular Casts Urine Mucus Acetone Level MRSA (PCR) POC Glucose 229 H 197 H 199 H 01/24/18 01/24/18 01/24/18 01:32 02:31 03:37 WBC RBC Hgb Hct MCV MCH MCHC RDW RDW Differential Plt Count MPV Immature Gran % (Auto) Neut % (Auto) Lymph % (Auto) [place] % (Auto) Eos % (Auto) Baso % (Auto) Absolute Neuts (auto) Absolute Lymphs (auto) Total Counted Differential Comment PT INR Fibrinogen D-Dimer Quant (PE/DVT) Specimen Type Sample Site pH Bicarbonate Actual POC Total CO2 Base Excess O2 Saturation O2 % ABG pCO2 ABG pO2 Boyd Test Respiration Rate O2 Delivery Device Minute Volume Vent Mode Tidal Volume POC PEEP Blood Gas Notified Whom Blood Gas Notified Time Sodium Potassium Chloride Carbon Dioxide Anion Gap BUN Creatinine Estim Creat Clear Calc Est GFR (MDRD) Af Amer Est GFR (MDRD) Non-Af BUN/Creatinine Ratio Glucose Hemoglobin A1c Lactic Acid Calcium Magnesium Total Bilirubin AST ALT Alkaline Phosphatase Total Creatine Kinase Troponin I Total Protein Albumin Globulin Albumin/Globulin Ratio Triglycerides TSH Urine Color Urine Clarity Urine pH Ur Specific [place] Urine Protein Urine Glucose (UA) Urine Ketones Urine Occult Blood Urine Nitrite Urine Bilirubin Urine Urobilinogen Ur Leukocyte Esterase Urine RBC Urine WBC Ur Squamous Epith Cells Amorphous Sediment Urine Bacteria Coarse Granular Casts Urine Mucus Acetone Level MRSA (PCR) POC Glucose 189 H 166 H 173 H 01/24/18 01/24/18 01/24/18 03:40 03:40 04:29 WBC 7.0 RBC 3.43 L Hgb 10.4 L Hct 29.9 L MCV 87.2 MCH 30.3 MCHC 34.8 RDW 14.0 RDW Differential 44.5 H Plt Count 182 MPV 8.5 Immature Gran % (Auto) 0.100 Neut % (Auto) 80.3 H Lymph % (Auto) 10.5 L [place] % (Auto) 9.1 Eos % (Auto) 0.0 Baso % (Auto) 0.0 Absolute Neuts (auto) 5.6 Absolute Lymphs (auto) 0.73 L Total Counted Not Reportable Differential Comment SCANNED PT INR Fibrinogen D-Dimer Quant (PE/DVT) Specimen Type Sample Site pH Bicarbonate Actual POC Total CO2 Base Excess O2 Saturation O2 % ABG pCO2 ABG pO2 Boyd Test Respiration Rate O2 Delivery Device Minute Volume Vent Mode Tidal Volume POC PEEP Blood Gas Notified Whom Blood Gas Notified Time Sodium 147 H Potassium 3.5 Chloride 117 H Carbon Dioxide 17.0 L Anion Gap 13 BUN 53 H Creatinine 2.94 H Estim Creat Clear Calc 14.94 Est GFR (MDRD) Af Amer 20 L Est GFR (MDRD) Non-Af 17 L BUN/Creatinine Ratio 18.0 Glucose 179 H Hemoglobin A1c Lactic Acid Calcium 7.6 L Magnesium Total Bilirubin AST ALT Alkaline Phosphatase Total Creatine Kinase Troponin I Total Protein Albumin Globulin Albumin/Globulin Ratio Triglycerides TSH Urine Color Urine Clarity Urine pH Ur Specific [place] Urine Protein Urine Glucose (UA) Urine Ketones Urine Occult Blood Urine Nitrite Urine Bilirubin Urine Urobilinogen Ur Leukocyte Esterase Urine RBC Urine WBC Ur Squamous Epith Cells Amorphous Sediment Urine Bacteria Coarse Granular Casts Urine Mucus Acetone Level MRSA (PCR) POC Glucose 171 H 01/24/18 01/24/18 05:23 06:36 WBC RBC Hgb Hct MCV MCH MCHC RDW RDW Differential Plt Count MPV Immature Gran % (Auto) Neut % (Auto) Lymph % (Auto) [place] % (Auto) Eos % (Auto) Baso % (Auto) Absolute Neuts (auto) Absolute Lymphs (auto) Total Counted Differential Comment PT INR Fibrinogen D-Dimer Quant (PE/DVT) Specimen Type Sample Site pH Bicarbonate Actual POC Total CO2 Base Excess O2 Saturation O2 % ABG pCO2 ABG pO2 Boyd Test Respiration Rate O2 Delivery Device Minute Volume Vent Mode Tidal Volume POC PEEP Blood Gas Notified Whom Blood Gas Notified Time Sodium Potassium Chloride Carbon Dioxide Anion Gap BUN Creatinine Estim Creat Clear Calc Est GFR (MDRD) Af Amer Est GFR (MDRD) Non-Af BUN/Creatinine Ratio Glucose Hemoglobin A1c Lactic Acid Calcium Magnesium Total Bilirubin AST ALT Alkaline Phosphatase Total Creatine Kinase Troponin I Total Protein Albumin Globulin Albumin/Globulin Ratio Triglycerides TSH Urine Color Urine Clarity Urine pH Ur Specific [place] Urine Protein Urine Glucose (UA) Urine Ketones Urine Occult Blood Urine Nitrite Urine Bilirubin Urine Urobilinogen Ur Leukocyte Esterase Urine RBC Urine WBC Ur Squamous Epith Cells Amorphous Sediment Urine Bacteria Coarse Granular Casts Urine Mucus Acetone Level MRSA (PCR) POC Glucose 147 H 139 H Microbiology 01/23/18 06:50 Mucosa - Nasopharyngeal Respiratory Panel (PCR) - Final Rhinovirus 01/23/18 09:05 Sputum, Induced/Lukens Gram Stain - Final Clinical Impression(s) from Imaging Studies Brain CT 01/22/18 17:32 IMPRESSION: No acute intracranial abnormality. Chronic ischemic and atrophic changes. Sinusitis. N.B. : The above information has been verbally conveyed by Jd Johnson to Mathieu Barnes on 01/22/2018 18:04:53 (ET). Electronically Signed: Jd Johnson, at 18:04 EDT Tel , Service support , Chest X-Ray 01/22/18 18:15 IMPRESSION: Satisfactory position of the support lines and tubes. No acute thoracic pathology. Electronically Signed: Jd Johnson, at 18:58 EDT Tel , Service support , Medical Necessity - Tobacco Use Smoking Status: Never smoker Tobacco Use: Non-smoker Assessment/Plan All Active Problems (Last Reviewed 01/22/18 @ 19:39 by Jamar Saxena DO) Respiratory failure (Acute) Metabolic acidosis (Acute) DKA (diabetic ketoacidoses) (Acute) Hypothermia (Acute) Sinusitis (Acute) Hyperkalemia (Acute) Rhabdomyolysis (Acute) DKA, type 1 (Acute) UTI (urinary tract infection) (Acute) RECOMMENDATIONS: 1. Discontinue supplemental IV fluids. 2. We will transition from continuous IV insulin infusion to basal insulin regimen and sliding scale coverage. 3. Continue meropenem and add vancomycin, given 4+ gram-positive cocci noted on sputum Gram stain. 4. Wean Levophed to maintain a mean arterial pressure at or above 65 mmHg. 5. Continue current sedation regimen. 6. Perform daily paired spontaneous awakening and breathing trials. 7. Okay to start tube feeds today. 8. Continue Pepcid and heparin for GI and DVT prophylaxis, respectively. IMPRESSIONS: 1. Acute respiratory failure/rhinovirus URI The patient was intubated upon arrival to the emergency department due to her state of encephalopathy likely precipitated by metabolic derangements in the setting of diabetic ketoacidosis. Her mentation is slowly improved with correction of her underlying metabolic derangements invasive mechanical ventilation. Plan to continue current supportive measures until the patient's metabolic derangements are completely corrected. 2. Hypovolemic versus septic shock The patient has been volume resuscitated, but remains persistently hypotensive requiring vasopressor support. However, the patient is clinically improving with decreasing vasopressor support. Continue to wean levo fed as tolerated. Supplemental IV fluids can be discontinued, as the patient is going to be started on tube feeds today. In addition to her Zosyn, she will be placed on vancomycin given the 4+ gram-positive cocci noted on sputum Gram stain. Respiratory viral panel was also noted to be positive for rhinovirus. Continue current supportive measures. 3. Metabolic encephalopathy The patient presents to the hospital with profound metabolic derangements in the setting of #4. She is a poorly controlled diabetic with a hemoglobin A1c of greater than 14. I anticipate improvement in her mentation as her underlying metabolic derangements are corrected. She will be maintained on sedation while mechanically ventilated in an attempt to maintain a RASS of -1 to 1. 4. Diabetic ketoacidosis Resolved at this time. The patient will be transition from a continuous insulin infusion to basal insulin and sliding scale coverage every 6 hours. Tube feeds are also going to be initiated. 5. Acute kidney injury/rhabdomyolysis Likely multifactorial in etiology with prerenal azotemia/ischemic ATN combined with rhabdomyolysis contributing. Continue current supportive measures with volume expansion and vasopressor support to maintain hemodynamic stability. Continue to monitor CK levels periodically. Continue to monitor urine output. There is no current indication for renal replacement therapy. 6. Troponin elevation Likely secondary to demand ischemia in the setting of #2. Consider obtaining echocardiogram. TIME: 38 minutes of critical care time, independent of procedures, was spent addressing the patient's acute respiratory failure, hypovolemic/septic shock, metabolic encephalopathy, diabetic ketoacidosis, acute kidney injury, troponin elevation, review of all data and collaboration with the care team. ([id number]) Code Visit 9xxxx: [id number] Critical care first hour
[2018-01-24 07:51] LABS: Bedside Glucose 106 mg/dL (70-110)
[2018-01-24 08:41] LABS: Bedside Glucose 122 mg/dL (70-110)
--- NOTE | 2018-01-24 08:45 | PCM.RX.CS ---
Consult Pharmacy has been consulted to manage selected antiobiotic: Vancomycin Type of Consult: New start Suspected Infection: Bacteremia Labs: Sodium 147 mmol/L (136-145) H 01/24/18 03:40 Potassium 3.5 mmol/L (3.5-5.1) 01/24/18 03:40 Chloride 117 mmol/L (98-107) H 01/24/18 03:40 Carbon Dioxide 17.0 mmol/L (21.0-32.0) L 01/24/18 03:40 Anion Gap 13 (5-15) 01/24/18 03:40 BUN 53 mg/dL (7-18) H 01/24/18 03:40 Creatinine 2.94 mg/dL (0.55-1.02) H 01/24/18 03:40 Est GFR (MDRD) Af Amer 20 mL/min (>60) L 01/24/18 03:40 Est GFR (MDRD) Non-Af 17 mL/min (>60) L 01/24/18 03:40 BUN/Creatinine Ratio 18.0 RATIO (10-20) 01/24/18 03:40 Glucose 179 mg/dL (74-106) H 01/24/18 03:40 Microbiology: Microbiology 01/23/18 06:50 Mucosa - Nasopharyngeal Respiratory Panel (PCR) - Final Rhinovirus 01/23/18 09:05 Sputum, Induced/Lukens Gram Stain - Final Weight used for dosin.4 kg Estimated Creatinine Clearance: ~15ML/MIN Goal Trough: 15-20 mcg/mL Pharmacy Plan for Drug Dosing: Patient reviewed and will give 15mg/kg (1gm) iv x 1. Renal status Cr 2.94 with estimated Cr Cl ~15. Ordered vancomycin random level for AM 01.25.18 with goal range 15-20 mcg/ml. Pharmacy Service will continue to monitor and adjust dosing as required. Follow-Up Labs: Trough Other - random level .12.05 @0900
[2018-01-24] MEDS: Chlorhexidine 15 ML PO ×2 (09:57→21:03)
[2018-01-24] MEDS: Famotidine 20 MG Tablet GT (09:58)
[2018-01-24] MEDS: Vancomycin IV 1,000 MG/200 ML BAG 200 MG IV (10:03)
--- NOTE | 2018-01-24 10:06 | PCM.PN.HOSP ---
Patient Problems: Active and Suspected Problems (Last Reviewed 01/22/18 @ 19:39 by Jamar Saxena DO) Respiratory failure (Acute) Metabolic acidosis (Acute) DKA (diabetic ketoacidoses) (Acute) Hypothermia (Acute) Sinusitis (Acute) Hyperkalemia (Acute) Rhabdomyolysis (Acute) Subjective: Intubated and sedated, does open her eyes and track Objective: General: No apparent distress, - - Intubated and sedated HEENT: Atraumatic, Normocephalic Oral: Moist Mucosa Neck: No JVD Lungs: Normal air movement, - - Coarse Cardiovascular: Regular rate, Regular Rhythm, Normal S1, Normal S2, No murmurs Abdomen: Soft, Non-Distended, No Hepato-splenomegaly Extremities: Edema, non-pitting in her hands and feet Skin: No rashes, No breakdown Vitals/I&O's: Vital Signs Temp Pulse Resp BP Pulse Ox 100.3 F H 88 18 131/56 H 100 01/24/18 07:00 01/24/18 09:54 01/24/18 09:54 01/24/18 07:00 01/24/18 09:54 Oxygen Delivery Method Mechanical Ventilator Weight: 150 lb 12.739 oz Body Mass Index (BMI) 23.9 Finger Stick Blood Glucose 147 Intake and Output for Last 24 Hours 01/22/18 01/23/18 01/24/18 23:59 23:59 23:59 Intake Total 6548.6 / 6548.6 1571 / 1571 Output Total 1920 / 1920 100 / 100 Balance 4628.6 / 4628.6 1471 / 1471 Microbiology Past 72 Hours 01/23/18 06:50 Mucosa - Nasopharyngeal Respiratory Panel (PCR) - Final Rhinovirus 01/23/18 09:05 Sputum, Induced/Lukens Gram Stain - Final Laboratory Results 01/23/18 10:07: POC Glucose 395 H 01/23/18 11:14: POC Glucose 413 H 01/23/18 12:04: POC Glucose 373 H 01/23/18 12:25: Sodium 145, Potassium 4.4, Chloride 113 H, Carbon Dioxide 13.0 L, Anion Gap 19 H, BUN 53 H, Creatinine 2.70 H, Estim Creat Clear Calc 16.26, Est GFR (MDRD) Af Amer 22 L, Est GFR (MDRD) Non-Af 18 L, BUN/Creatinine Ratio 19.6, Glucose 371 H, Calcium 7.4 L 01/23/18 13:13: POC Glucose 356 H 01/23/18 15:05: POC Glucose 292 H 01/23/18 16:01: POC Glucose 275 H 01/23/18 16:20: Sodium 144, Potassium 4.3, Chloride 115 H, Carbon Dioxide 14.0 L, Anion Gap 15, BUN 52 H, Creatinine 2.79 H, Estim Creat Clear Calc 15.74, Est GFR (MDRD) Af Amer 21 L, Est GFR (MDRD) Non-Af 18 L, BUN/Creatinine Ratio 18.6, Glucose 282 H, Calcium 7.5 L 01/23/18 17:18: POC Glucose 276 H 01/23/18 18:19: POC Glucose 275 H 01/23/18 19:29: POC Glucose 248 H 01/23/18 20:10: Sodium 144, Potassium 4.3, Chloride 116 H, Carbon Dioxide 16.0 L, Anion Gap 12, BUN 52 H, Creatinine 2.82 H, Estim Creat Clear Calc 15.57, Est GFR (MDRD) Af Amer 21 L, Est GFR (MDRD) Non-Af 18 L, BUN/Creatinine Ratio 18.4, Glucose 264 H, Calcium 7.5 L 01/23/18 20:27: POC Glucose 253 H 01/23/18 21:31: POC Glucose 258 H 01/23/18 22:39: POC Glucose 229 H 01/23/18 23:33: POC Glucose 197 H 01/24/18 00:30: POC Glucose 199 H 01/24/18 01:32: POC Glucose 189 H 01/24/18 02:31: POC Glucose 166 H 01/24/18 03:37: POC Glucose 173 H 01/24/18 03:40: WBC 7.0, RBC 3.43 L, Hgb 10.4 L, Hct 29.9 L, MCV 87.2, MCH 30.3, MCHC 34.8, RDW 14.0, RDW Differential 44.5 H, Plt Count 182, MPV 8.5, Immature Gran % (Auto) 0.100, Neut % (Auto) 80.3 H, Lymph % (Auto) 10.5 L, [place] % (Auto) 9.1, Eos % (Auto) 0.0, Baso % (Auto) 0.0, Absolute Neuts (auto) 5.6, Absolute Lymphs (auto) 0.73 L, Total Counted Not Reportable, Differential Comment SCANNED 01/24/18 03:40: Sodium 147 H, Potassium 3.5, Chloride 117 H, Carbon Dioxide 17.0 L, Anion Gap 13, BUN 53 H, Creatinine 2.94 H, Estim Creat Clear Calc 14.94, Est GFR (MDRD) Af Amer 20 L, Est GFR (MDRD) Non-Af 17 L, BUN/Creatinine Ratio 18.0, Glucose 179 H, Calcium 7.6 L 01/24/18 04:29: POC Glucose 171 H 01/24/18 05:23: POC Glucose 147 H 01/24/18 06:36: POC Glucose 139 H 01/24/18 07:41: POC Glucose 106 01/24/18 08:37: POC Glucose 122 H Current Medications Acetaminophen (Tylenol Liquid) 650 mg GT Q6H PRN PRN PRN Reason: FEVER Albuterol Sulfate (Ventolin Aerosols) 2.5 mg INHALATION Q2H PRN PRN PRN Reason: SHORTNESS OF BREATH Chlorhexidine Gluconate () 15 ml PO BID [facility] Last Admin: 01/24/18 09:57 Dose: 15 ml Chlorhexidine Gluconate () 1 each TOPICAL DAILY [facility] Last Admin: 01/24/18 02:33 Dose: 1 each Dextrose (D50w Syringe) 0 gm IV X1 PRN; Protocol PRN Reason: HYPOGLYCEMIA Famotidine (Pepcid) 20 mg GT DAILY [facility] Last Admin: 01/24/18 09:58 Dose: 20 mg Glucagon () 1 mg IM .X1 PRN PRN Reason: Hypoglycemia Heparin Sodium (Porcine) (Heparin Na) 5,000 unit SC Q8 [facility] Last Admin: 01/24/18 05:12 Dose: 5,000 unit Norepinephrine Bitartrate 8 mg (/ Dextrose) 258 mls @ 9.68 mls/hr IV .[id number] [facility] Last Admin: 01/24/18 05:08 Dose: 9.68 mls/hr Sodium Chloride () 250 mls @ 15 mls/hr IV .[id number] PRN PRN Reason: SALINE FLUSH Vasopressin 40 units/ Sodium (Chloride) 52 mls @ 3.12 mls/hr IV .[id number] [facility] Last Admin: 01/23/18 22:28 Dose: Not Given Meropenem 500 mg/ Sodium (Chloride) 60 mls @ 100 mls/hr IV Q12 [facility] Last Admin: 01/24/18 10:00 Dose: 100 mls/hr Dexmedetomidine HCl 400 mcg/ (Sodium Chloride) 100 mls @ 8.26 mls/hr IV .[id number] [facility] Last Admin: 01/24/18 06:04 Dose: 8.26 mls/hr Fentanyl () 100 mls @ 2.5 mls/hr IV .Q40H [facility] Last Admin: 01/24/18 06:00 Dose: 2.5 mls/hr Vancomycin IV Pharmacy to Dose (1 ea/ Sodium Chloride) 500 mls @ 250 mls/hr IV PRN PRN; Protocol PRN Reason: Rx to Dose Enteral Nutritional Formula (Vital Af 1.2 Jaret Liquid) 1,000 mls @ 60 mls/hr GT .[id number] [facility] Insulin Glargine (Lantus (Bkc)) 10 units SC BID [facility] Last Admin: 01/24/18 08:41 Dose: 10 u Insulin Human Lispro (Humalog Kwikpen (Bkc)) 0 unit SC Q6 [facility]; Protocol Magnesium Hydroxide (Milk Of Magnesia) 30 ml PO DAILY PRN PRN PRN Reason: Constipation Sodium Chloride () 5 - 30 ml IV UD PRN PRN Reason: SALINE FLUSH Last Admin: 01/24/18 03:30 Dose: 30 ml Sodium Chloride () 10 - 40 ml IV UD PRN PRN Reason: MULTILUMEN/HICMAN CATH FLUSH Last Admin: 01/23/18 04:01 Dose: 20 ml Medical Necessity - Tobacco Use Smoking Status: Never smoker Tobacco Use: Non-smoker Assessment/Plan All Active Problems (Last Reviewed 01/22/18 @ 19:39 by Jamar Saxena DO) Respiratory failure (Acute) Metabolic acidosis (Acute) DKA (diabetic ketoacidoses) (Acute) Hypothermia (Acute) Sinusitis (Acute) Hyperkalemia (Acute) Rhabdomyolysis (Acute) DKA, type 1 (Acute) UTI (urinary tract infection) (Acute) 1. DKA with type 1 DM/Metabolic encephalopathy 2/2 metabolic acidosis and respiratory failure/BETH/Elevated troponin 2/2 rhabdomyolysis/Hypovolemic shock/?DIC - DKA protocol with insulin drip - off IVF - Oliva in place monitor I/O - C/w sedation for now, weaning down the precedex - Levophed for hemodynamic support, though titrating down - C/w meropenem/vanc for shock and what appears to be sinusitis - Acidosis is improving, gap is colsed, renal function still elevated likely ATN at this point DVT: SCDs Diet: NPO DNRCC-A Code Visit Inpatient E&M: 98708 Subs Hosp L2
--- NOTE | 2018-01-24 10:10 | PN_ITS ---
Patient Problems: Active and Suspected Problems (Last Reviewed 01/22/18 @ 19:39 by Jamar Saxena DO) Respiratory failure (Acute) Metabolic acidosis (Acute) DKA (diabetic ketoacidoses) (Acute) Hypothermia (Acute) Sinusitis (Acute) Hyperkalemia (Acute) Rhabdomyolysis (Acute) Subjective: Intubated and sedated, does open her eyes and track Objective: General: No apparent distress, - - Intubated and sedated HEENT: Atraumatic, Normocephalic Oral: Moist Mucosa Neck: No JVD Lungs: Normal air movement, - - Coarse Cardiovascular: Regular rate, Regular Rhythm, Normal S1, Normal S2, No murmurs Abdomen: Soft, Non-Distended, No Hepato-splenomegaly Extremities: Edema, non-pitting in her hands and feet Skin: No rashes, No breakdown Vitals/I&O's: Vital Signs Temp Pulse Resp BP Pulse Ox 100.3 F H 88 18 131/56 H 100 01/24/18 07:00 01/24/18 09:54 01/24/18 09:54 01/24/18 07:00 01/24/18 09:54 Oxygen Delivery Method Mechanical Ventilator Weight: 150 lb 12.739 oz Body Mass Index (BMI) 23.9 Finger Stick Blood Glucose 147 Intake and Output for Last 24 Hours 01/22/18 01/23/18 01/24/18 23:59 23:59 23:59 Intake Total 6548.6 / 6548.6 1571 / 1571 Output Total 1920 / 1920 100 / 100 Balance 4628.6 / 4628.6 1471 / 1471 Microbiology Past 72 Hours 01/23/18 06:50 Mucosa - Nasopharyngeal Respiratory Panel (PCR) - Final Rhinovirus 01/23/18 09:05 Sputum, Induced/Lukens Gram Stain - Final Laboratory Results 01/23/18 10:07: POC Glucose 395 H 01/23/18 11:14: POC Glucose 413 H 01/23/18 12:04: POC Glucose 373 H 01/23/18 12:25: Sodium 145, Potassium 4.4, Chloride 113 H, Carbon Dioxide 13.0 L , Anion Gap 19 H, BUN 53 H, Creatinine 2.70 H, Estim Creat Clear Calc 16.26, Est GFR (MDRD) Af Amer 22 L, Est GFR (MDRD) Non-Af 18 L, BUN/Creatinine Ratio 19.6, Glucose 371 H, Calcium 7.4 L 01/23/18 13:13: POC Glucose 356 H 01/23/18 15:05: POC Glucose 292 H 01/23/18 16:01: POC Glucose 275 H 01/23/18 16:20: Sodium 144, Potassium 4.3, Chloride 115 H, Carbon Dioxide 14.0 L , Anion Gap 15, BUN 52 H, Creatinine 2.79 H, Estim Creat Clear Calc 15.74, Est GFR (MDRD) Af Amer 21 L, Est GFR (MDRD) Non-Af 18 L, BUN/Creatinine Ratio 18.6, Glucose 282 H, Calcium 7.5 L 01/23/18 17:18: POC Glucose 276 H 01/23/18 18:19: POC Glucose 275 H 01/23/18 19:29: POC Glucose 248 H 01/23/18 20:10: Sodium 144, Potassium 4.3, Chloride 116 H, Carbon Dioxide 16.0 L , Anion Gap 12, BUN 52 H, Creatinine 2.82 H, Estim Creat Clear Calc 15.57, Est GFR (MDRD) Af Amer 21 L, Est GFR (MDRD) Non-Af 18 L, BUN/Creatinine Ratio 18.4, Glucose 264 H, Calcium 7.5 L 01/23/18 20:27: POC Glucose 253 H 01/23/18 21:31: POC Glucose 258 H 01/23/18 22:39: POC Glucose 229 H 01/23/18 23:33: POC Glucose 197 H 01/24/18 00:30: POC Glucose 199 H 01/24/18 01:32: POC Glucose 189 H 01/24/18 02:31: POC Glucose 166 H 01/24/18 03:37: POC Glucose 173 H 01/24/18 03:40: WBC 7.0, RBC 3.43 L, Hgb 10.4 L, Hct 29.9 L, MCV 87.2, MCH 30.3, MCHC 34.8, RDW 14.0, RDW Differential 44.5 H, Plt Count 182, MPV 8.5, Immature Gran % (Auto) 0.100, Neut % (Auto) 80.3 H, Lymph % (Auto) 10.5 L, Concho % (Auto) 9.1, Eos % (Auto) 0.0, Baso % (Auto) 0.0, Absolute Neuts (auto) 5.6, Absolute Lymphs (auto) 0.73 L, Total Counted Not Reportable, Differential Comment SCANNED 01/24/18 03:40: Sodium 147 H, Potassium 3.5, Chloride 117 H, Carbon Dioxide 17.0 L, Anion Gap 13, BUN 53 H, Creatinine 2.94 H, Estim Creat Clear Calc 14.94, Est GFR (MDRD) Af Amer 20 L, Est GFR (MDRD) Non-Af 17 L, BUN/Creatinine Ratio 18.0, Glucose 179 H, Calcium 7.6 L 01/24/18 04:29: POC Glucose 171 H 01/24/18 05:23: POC Glucose 147 H 01/24/18 06:36: POC Glucose 139 H 01/24/18 07:41: POC Glucose 106 01/24/18 08:37: POC Glucose 122 H Current Medications Acetaminophen (Tylenol Liquid) 650 mg GT Q6H PRN PRN PRN Reason: FEVER Albuterol Sulfate (Ventolin Aerosols) 2.5 mg INHALATION Q2H PRN PRN PRN Reason: SHORTNESS OF BREATH Chlorhexidine Gluconate () 15 ml PO BID [facility] Last Admin: 01/24/18 09:57 Dose: 15 ml Chlorhexidine Gluconate () 1 each TOPICAL DAILY [facility] Last Admin: 01/24/18 02:33 Dose: 1 each Dextrose (D50w Syringe) 0 gm IV X1 PRN; Protocol PRN Reason: HYPOGLYCEMIA Famotidine (Pepcid) 20 mg GT DAILY [facility] Last Admin: 01/24/18 09:58 Dose: 20 mg Glucagon () 1 mg IM .X1 PRN PRN Reason: Hypoglycemia Heparin Sodium (Porcine) (Heparin Na) 5,000 unit SC Q8 [facility] Last Admin: 01/24/18 05:12 Dose: 5,000 unit Norepinephrine Bitartrate 8 mg (/ Dextrose) 258 mls @ 9.68 mls/hr IV .[id number] [facility] [place] Last Admin: 01/24/18 05:08 Dose: 9.68 mls/hr Sodium Chloride () 250 mls @ 15 mls/hr IV .[id number] PRN PRN Reason: SALINE FLUSH Vasopressin 40 units/ Sodium (Chloride) 52 mls @ 3.12 mls/hr IV .[id number] [facility] [place] Last Admin: 01/23/18 22:28 Dose: Not Given Meropenem 500 mg/ Sodium (Chloride) 60 mls @ 100 mls/hr IV Q12 [facility] Last Admin: 01/24/18 10:00 Dose: 100 mls/hr Dexmedetomidine HCl 400 mcg/ (Sodium Chloride) 100 mls @ 8.26 mls/hr IV .[id number] [facility] [place] Last Admin: 01/24/18 06:04 Dose: 8.26 mls/hr Fentanyl () 100 mls @ 2.5 mls/hr IV .Q40H [facility] Last Admin: 01/24/18 06:00 Dose: 2.5 mls/hr Vancomycin IV Pharmacy to Dose (1 ea/ Sodium Chloride) 500 mls @ 250 mls/hr IV PRN PRN; Protocol PRN Reason: Rx to Dose Enteral Nutritional Formula (Vital Af 1.2 Jaret Liquid) 1,000 mls @ 60 mls/hr GT .[id number] [facility] Insulin Glargine (Lantus (Bkc)) 10 units SC BID [facility] Last Admin: 01/24/18 08:41 Dose: 10 u Insulin Human Lispro (Humalog Kwikpen (Bkc)) 0 unit SC Q6 [facility]; Protocol Magnesium Hydroxide (Milk Of Magnesia) 30 ml PO DAILY PRN PRN PRN Reason: Constipation Sodium Chloride () 5 - 30 ml IV UD PRN PRN Reason: SALINE FLUSH Last Admin: 01/24/18 03:30 Dose: 30 ml Sodium Chloride () 10 - 40 ml IV UD PRN PRN Reason: MULTILUMEN/HICMAN CATH FLUSH Last Admin: 01/23/18 04:01 Dose: 20 ml Medical Necessity - Tobacco Use Smoking Status: Never smoker Tobacco Use: Non-smoker Assessment/Plan All Active Problems (Last Reviewed 01/22/18 @ 19:39 by Jamar Saxena DO) Respiratory failure (Acute) Metabolic acidosis (Acute) DKA (diabetic ketoacidoses) (Acute) Hypothermia (Acute) Sinusitis (Acute) Hyperkalemia (Acute) Rhabdomyolysis (Acute) DKA, type 1 (Acute) UTI (urinary tract infection) (Acute) 1. DKA with type 1 DM/Metabolic encephalopathy 2/2 metabolic acidosis and respiratory failure/BETH/Elevated troponin 2/2 rhabdomyolysis/Hypovolemic shock/?DIC - DKA protocol with insulin drip - off IVF - Oliva in place monitor I/O - C/w sedation for now, weaning down the precedex - Levophed for hemodynamic support, though titrating down - C/w meropenem/vanc for shock and what appears to be sinusitis - Acidosis is improving, gap is colsed, renal function still elevated likely ATN at this point DVT: SCDs Diet: NPO DNRCC-A Code Visit Inpatient E&M: 87634 Subs Hosp L2
[2018-01-24 10:16] LABS: Bedside Glucose 125 mg/dL (70-110)
[2018-01-24] MEDS: Insulin Lispro 100 UNIT/ML INSULN.PEN SC ×3 (12:08→23:59)
[2018-01-24 12:11] LABS: Bedside Glucose 166 mg/dL (70-110)
[2018-01-24] MEDS: Vital AF 1.2 Cal Liquid 1,000 ML 60 ML GT (12:59)
[2018-01-24] MEDS: Acetaminophen 650 MG/20 ML UDC GT (16:08)
[2018-01-24 21:25] LABS: Bedside Glucose 370 mg/dL (70-110)
[2018-01-25] VITALS (39 sets, daily range): BP systolic 81–135; BP diastolic 45–89; PULSE 75–90; RESP 12–18; TEMP 37.9–38.7; O2SAT 98–100
[2018-01-25 00:41] LABS: Bedside Glucose 315 mg/dL (70-110)
[2018-01-25] MEDS: 0.9% NaCl Peripheral Flush Adult/Peds IV ×4 (04:03→18:43)
[2018-01-25] MEDS: CHLORHEXIDINE GLUC 2% CLOTH 1 EACH TOWELETTE TOPICAL (04:04)
[2018-01-25] MEDS: Insulin Lispro 100 UNIT/ML INSULN.PEN SC (05:32)
[2018-01-25] MEDS: Heparin Injection (Vial) 5,000 UNIT/ML VIAL 5000 UNIT SC (05:32)
[2018-01-25 05:41] LABS: Bedside Glucose 226 mg/dL (70-110)
[2018-01-25 06:40] LABS: ALB/GLOB Ratio 0.6 RATIO (0.9-2.4); AST(SGOT) 347 U/L (15-37); Alanine Aminotransfer ALT/SGPT 206 U/L (13-56); Alkaline Phosphatase 112 U/L (45-117); Anion Gap 9 (5-15); BUN 59 mg/dL (7-18); BUN/Creat Ratio 15.8 RATIO (10-20); Calcium,Total 7.8 mg/dL (8.5-10.1); Chloride 118 mmol/L (98-107); Creatinine, Serum 3.74 mg/dL (0.55-1.02); EST Glomerular Filtration Rate 13 mL/min (>60); Est Glom Filt Rate - Afr Amer 15 mL/min (>60); Estimated Creatinine Clearance 11.74 ml/min; Globulin 3.1 g/dL (2.2-4.2); Glucose 218 mg/dL (74-106); Potassium 4.3 mmol/L (3.5-5.1); Protein, Total 5.1 g/dL (6.4-8.2); Sodium Level 144 mmol/L (136-145)
--- NOTE | 2018-01-25 06:55 | ECHOL_ITS ---
Reason For Study: DYSPNEA Procedure This was a limited 2D transthoracic echocardiogram. Test terminated at daughter's request. Pt on ventilator and quite restless. Limited views were obtained. The study was technically difficult. Exam performed portable in ICU/CCU. Left Ventricle Normal LV size. The estimated ejection fraction is 37 %. There is moderate global hypokinesis of the left ventricle. Right Ventricle Normal RV size. Normal systolic function. Atria Normal left atrium. Normal right atrium. Mitral Valve Normal mitral valve. Mild (1+) eccentric mitral valve insufficiency. Tricuspid Valve Normal tricuspid valve. Mild tricuspid valve insufficiency. Aortic Valve Normal aortic valve. Pulmonic Valve The pulmonic valve is not well visualized. Great Vessels Normal aortic root. The pulmonary artery is normal size. Normal inferior vena cava. Pericardium/Pleural No pericardial effusion. MMode/2D Measurements & Calculations LVIDd: 4.0 cm IVSd: 0.69 cm Ao root diam: 3.0 cm LVIDs: 3.1 cm LVPWd: 0.61 cm LA dimension: 3.1 cm FS: 23.0 % Doppler Measurements & Calculations TR max alberto: 163.5 cm/sec TR max P.7 mmHg Interpretation Summary Normal LV size. The estimated ejection fraction is 37 %. There is moderate global hypokinesis of the left ventricle. Mild tricuspid valve insufficiency. Ordering Physician: Gerardo Dow D.O. Referring Physician: Vandana Flores Performed By: Clare Villasenor, STEPHEN, RVT
--- NOTE | 2018-01-25 06:56 | PN_ITS ---
Subjective: The patient was seen and examined at the bedside this morning. Events from the last 24 hours have been reviewed. The patient did spike a high-grade fever over the last 24 hours. Her T-max was noted to be 102.5 ?F. Nursing staff did report to me yesterday that although the patient's vancomycin was ordered in the morning, he does not appear to have been hung until last evening. The patient's creatinine continues to worsen. Urine output has also been decreasing. Her Levophed requirement continues to decrease. Her tube feeds are currently at goal. The patient is currently overall net +8.3 L for the admission. Her weight is up accordingly. Objective: The patient's most recent lab work, culture data and imaging studies have all been personally reviewed. Blood and urine cultures have shown no growth to date. Respiratory viral panel was positive for rhinovirus. Sputum culture appears to be normal respiratory landon. General: - - Remains intubated, sedated and mechanically ventilated. HEENT: Atraumatic, PERRLA, Normocephalic Oral: No Gingival or Mucosal Lesions/ Ulcerations, - - Endotracheal and OG tubes remain in place. Neck: Supple, No Nodes, Trachea Midline, - - Central venous catheter in place. Lungs: No rhonchi, No wheeze, No rales, Diminished Cardiovascular: Regular rate, Regular Rhythm, Normal S1, Normal S2, No murmurs Abdomen: Bowel Sounds Present, Soft, Non Tender, - - Tolerating tube feeds currently Extremities: No clubbing, No cyanosis, Edema Skin: No breakdown Musculoskeletal: No Tenderness to Palpation of Joints or Extremities Lymphatic: No Cervical, Supraclavicular, or Inguinal Adenopathy Neurological: - - Currently sedated without focal neurological deficits identified. Currently nonresponsive to verbal stimuli. Vital Signs Temp Pulse Resp BP Pulse Ox 100.9 F H 90 18 109/50 L 99 01/25/18 06:00 01/25/18 06:30 01/25/18 06:00 01/25/18 06:30 01/25/18 06:23 Oxygen Delivery Method Mechanical Ventilator Weight: 157 lb 6.561 oz Body Mass Index (BMI) 23.9 Finger Stick Blood Glucose 122 Intake and Output for Last 24 Hours 01/23/18 01/24/18 01/25/18 23:59 23:59 23:59 Intake Total 6548.6 / 6548.6 3137 / 3137 1407 / 1407 Output Total 1920 / 1920 470 / 470 350 / 350 Balance 4628.6 / 4628.6 2667 / 2667 1057 / 1057 Labs (Last 48 Hours) 01/23/18 01/23/18 01/23/18 06:58 06:58 07:01 WBC RBC Hgb Hct MCV MCH MCHC RDW RDW Differential Plt Count MPV Immature Gran % (Auto) Neut % (Auto) Lymph % (Auto) Howard % (Auto) Eos % (Auto) Baso % (Auto) Absolute Neuts (auto) Absolute Lymphs (auto) Total Counted Differential Comment Sodium 141 Potassium 4.7 Chloride 112 H Carbon Dioxide 8.0 L* Anion Gap 21 H BUN 49 H Creatinine 2.45 H Estim Creat Clear Calc 17.92 Est GFR (MDRD) Af Amer 25 L Est GFR (MDRD) Non-Af 21 L BUN/Creatinine Ratio 20.0 Glucose 589 H* Calcium 7.1 L Total Bilirubin AST ALT Alkaline Phosphatase Total Creatine Kinase 20764 H Total Protein Albumin Globulin Albumin/Globulin Ratio Triglycerides 199 POC Glucose 442 H 01/23/18 01/23/18 01/23/18 08:09 09:08 10:07 WBC RBC Hgb Hct MCV MCH MCHC RDW RDW Differential Plt Count MPV Immature Gran % (Auto) Neut % (Auto) Lymph % (Auto) Howard % (Auto) Eos % (Auto) Baso % (Auto) Absolute Neuts (auto) Absolute Lymphs (auto) Total Counted Differential Comment Sodium Potassium Chloride Carbon Dioxide Anion Gap BUN Creatinine Estim Creat Clear Calc Est GFR (MDRD) Af Amer Est GFR (MDRD) Non-Af BUN/Creatinine Ratio Glucose Calcium Total Bilirubin AST ALT Alkaline Phosphatase Total Creatine Kinase Total Protein Albumin Globulin Albumin/Globulin Ratio Triglycerides POC Glucose 476 H* 462 H* 395 H 01/23/18 01/23/18 01/23/18 11:14 12:04 12:25 WBC RBC Hgb Hct MCV MCH MCHC RDW RDW Differential Plt Count MPV Immature Gran % (Auto) Neut % (Auto) Lymph % (Auto) Howard % (Auto) Eos % (Auto) Baso % (Auto) Absolute Neuts (auto) Absolute Lymphs (auto) Total Counted Differential Comment Sodium 145 Potassium 4.4 Chloride 113 H Carbon Dioxide 13.0 L Anion Gap 19 H BUN 53 H Creatinine 2.70 H Estim Creat Clear Calc 16.26 Est GFR (MDRD) Af Amer 22 L Est GFR (MDRD) Non-Af 18 L BUN/Creatinine Ratio 19.6 Glucose 371 H Calcium 7.4 L Total Bilirubin AST ALT Alkaline Phosphatase Total Creatine Kinase Total Protein Albumin Globulin Albumin/Globulin Ratio Triglycerides POC Glucose 413 H 373 H 01/23/18 01/23/18 01/23/18 13:13 15:05 16:01 WBC RBC Hgb Hct MCV MCH MCHC RDW RDW Differential Plt Count MPV Immature Gran % (Auto) Neut % (Auto) Lymph % (Auto) Howard % (Auto) Eos % (Auto) Baso % (Auto) Absolute Neuts (auto) Absolute Lymphs (auto) Total Counted Differential Comment Sodium Potassium Chloride Carbon Dioxide Anion Gap BUN Creatinine Estim Creat Clear Calc Est GFR (MDRD) Af Amer Est GFR (MDRD) Non-Af BUN/Creatinine Ratio Glucose Calcium Total Bilirubin AST ALT Alkaline Phosphatase Total Creatine Kinase Total Protein Albumin Globulin Albumin/Globulin Ratio Triglycerides POC Glucose 356 H 292 H 275 H 01/23/18 01/23/18 01/23/18 16:20 17:18 18:19 WBC RBC Hgb Hct MCV MCH MCHC RDW RDW Differential Plt Count MPV Immature Gran % (Auto) Neut % (Auto) Lymph % (Auto) Howard % (Auto) Eos % (Auto) Baso % (Auto) Absolute Neuts (auto) Absolute Lymphs (auto) Total Counted Differential Comment Sodium 144 Potassium 4.3 Chloride 115 H Carbon Dioxide 14.0 L Anion Gap 15 BUN 52 H Creatinine 2.79 H Estim Creat Clear Calc 15.74 Est GFR (MDRD) Af Amer 21 L Est GFR (MDRD) Non-Af 18 L BUN/Creatinine Ratio 18.6 Glucose 282 H Calcium 7.5 L Total Bilirubin AST ALT Alkaline Phosphatase Total Creatine Kinase Total Protein Albumin Globulin Albumin/Globulin Ratio Triglycerides POC Glucose 276 H 275 H 01/23/18 01/23/18 01/23/18 19:29 20:10 20:27 WBC RBC Hgb Hct MCV MCH MCHC RDW RDW Differential Plt Count MPV Immature Gran % (Auto) Neut % (Auto) Lymph % (Auto) Howard % (Auto) Eos % (Auto) Baso % (Auto) Absolute Neuts (auto) Absolute Lymphs (auto) Total Counted Differential Comment Sodium 144 Potassium 4.3 Chloride 116 H Carbon Dioxide 16.0 L Anion Gap 12 BUN 52 H Creatinine 2.82 H Estim Creat Clear Calc 15.57 Est GFR (MDRD) Af Amer 21 L Est GFR (MDRD) Non-Af 18 L BUN/Creatinine Ratio 18.4 Glucose 264 H Calcium 7.5 L Total Bilirubin AST ALT Alkaline Phosphatase Total Creatine Kinase Total Protein Albumin Globulin Albumin/Globulin Ratio Triglycerides POC Glucose 248 H 253 H 01/23/18 01/23/18 01/23/18 21:31 22:39 23:33 WBC RBC Hgb Hct MCV MCH MCHC RDW RDW Differential Plt Count MPV Immature Gran % (Auto) Neut % (Auto) Lymph % (Auto) Howard % (Auto) Eos % (Auto) Baso % (Auto) Absolute Neuts (auto) Absolute Lymphs (auto) Total Counted Differential Comment Sodium Potassium Chloride Carbon Dioxide Anion Gap BUN Creatinine Estim Creat Clear Calc Est GFR (MDRD) Af Amer Est GFR (MDRD) Non-Af BUN/Creatinine Ratio Glucose Calcium Total Bilirubin AST ALT Alkaline Phosphatase Total Creatine Kinase Total Protein Albumin Globulin Albumin/Globulin Ratio Triglycerides POC Glucose 258 H 229 H 197 H 01/24/18 01/24/18 01/24/18 00:30 01:32 02:31 WBC RBC Hgb Hct MCV MCH MCHC RDW RDW Differential Plt Count MPV Immature Gran % (Auto) Neut % (Auto) Lymph % (Auto) Howard % (Auto) Eos % (Auto) Baso % (Auto) Absolute Neuts (auto) Absolute Lymphs (auto) Total Counted Differential Comment Sodium Potassium Chloride Carbon Dioxide Anion Gap BUN Creatinine Estim Creat Clear Calc Est GFR (MDRD) Af Amer Est GFR (MDRD) Non-Af BUN/Creatinine Ratio Glucose Calcium Total Bilirubin AST ALT Alkaline Phosphatase Total Creatine Kinase Total Protein Albumin Globulin Albumin/Globulin Ratio Triglycerides POC Glucose 199 H 189 H 166 H 01/24/18 01/24/18 01/24/18 03:37 03:40 03:40 WBC 7.0 RBC 3.43 L Hgb 10.4 L Hct 29.9 L MCV 87.2 MCH 30.3 MCHC 34.8 RDW 14.0 RDW Differential 44.5 H Plt Count 182 MPV 8.5 Immature Gran % (Auto) 0.100 Neut % (Auto) 80.3 H Lymph % (Auto) 10.5 L Howard % (Auto) 9.1 Eos % (Auto) 0.0 Baso % (Auto) 0.0 Absolute Neuts (auto) 5.6 Absolute Lymphs (auto) 0.73 L Total Counted Not Reportable Differential Comment SCANNED Sodium 147 H Potassium 3.5 Chloride 117 H Carbon Dioxide 17.0 L Anion Gap 13 BUN 53 H Creatinine 2.94 H Estim Creat Clear Calc 14.94 Est GFR (MDRD) Af Amer 20 L Est GFR (MDRD) Non-Af 17 L BUN/Creatinine Ratio 18.0 Glucose 179 H Calcium 7.6 L Total Bilirubin AST ALT Alkaline Phosphatase Total Creatine Kinase Total Protein Albumin Globulin Albumin/Globulin Ratio Triglycerides POC Glucose 173 H 01/24/18 01/24/18 01/24/18 04:29 05:23 06:36 WBC RBC Hgb Hct MCV MCH MCHC RDW RDW Differential Plt Count MPV Immature Gran % (Auto) Neut % (Auto) Lymph % (Auto) Howard % (Auto) Eos % (Auto) Baso % (Auto) Absolute Neuts (auto) Absolute Lymphs (auto) Total Counted Differential Comment Sodium Potassium Chloride Carbon Dioxide Anion Gap BUN Creatinine Estim Creat Clear Calc Est GFR (MDRD) Af Amer Est GFR (MDRD) Non-Af BUN/Creatinine Ratio Glucose Calcium Total Bilirubin AST ALT Alkaline Phosphatase Total Creatine Kinase Total Protein Albumin Globulin Albumin/Globulin Ratio Triglycerides POC Glucose 171 H 147 H 139 H 01/24/18 01/24/18 01/24/18 07:41 08:37 10:11 WBC RBC Hgb Hct MCV MCH MCHC RDW RDW Differential Plt Count MPV Immature Gran % (Auto) Neut % (Auto) Lymph % (Auto) Howard % (Auto) Eos % (Auto) Baso % (Auto) Absolute Neuts (auto) Absolute Lymphs (auto) Total Counted Differential Comment Sodium Potassium Chloride Carbon Dioxide Anion Gap BUN Creatinine Estim Creat Clear Calc Est GFR (MDRD) Af Amer Est GFR (MDRD) Non-Af BUN/Creatinine Ratio Glucose Calcium Total Bilirubin AST ALT Alkaline Phosphatase Total Creatine Kinase Total Protein Albumin Globulin Albumin/Globulin Ratio Triglycerides POC Glucose 106 122 H 125 H 01/24/18 01/24/18 01/24/18 12:01 21:08 23:58 WBC RBC Hgb Hct MCV MCH MCHC RDW RDW Differential Plt Count MPV Immature Gran % (Auto) Neut % (Auto) Lymph % (Auto) Howard % (Auto) Eos % (Auto) Baso % (Auto) Absolute Neuts (auto) Absolute Lymphs (auto) Total Counted Differential Comment Sodium Potassium Chloride Carbon Dioxide Anion Gap BUN Creatinine Estim Creat Clear Calc Est GFR (MDRD) Af Amer Est GFR (MDRD) Non-Af BUN/Creatinine Ratio Glucose Calcium Total Bilirubin AST ALT Alkaline Phosphatase Total Creatine Kinase Total Protein Albumin Globulin Albumin/Globulin Ratio Triglycerides POC Glucose 166 H 370 H 315 H 01/25/18 01/25/18 01/25/18 05:29 06:15 06:15 WBC Pending RBC Pending Hgb Pending Hct Pending MCV Pending MCH Pending MCHC Pending RDW Pending RDW Differential Pending Plt Count Pending MPV Immature Gran % (Auto) Neut % (Auto) Pending Lymph % (Auto) Howard % (Auto) Eos % (Auto) Baso % (Auto) Absolute Neuts (auto) Pending Absolute Lymphs (auto) Total Counted Pending Differential Comment Sodium 144 Potassium 4.3 Chloride 118 H Carbon Dioxide 17.0 L Anion Gap 9 BUN 59 H Creatinine 3.74 H Estim Creat Clear Calc 11.74 Est GFR (MDRD) Af Amer 15 L Est GFR (MDRD) Non-Af 13 L BUN/Creatinine Ratio 15.8 Glucose 218 H Calcium 7.8 L Total Bilirubin 0.30 AST 347 H ALT 206 H Alkaline Phosphatase 112 Total Creatine Kinase Total Protein 5.1 L Albumin 2.0 L Globulin 3.1 Albumin/Globulin Ratio 0.6 L Triglycerides POC Glucose 226 H Microbiology 01/23/18 09:05 Sputum, Induced/Lukens Gram Stain - Final 01/23/18 09:05 Sputum, Induced/Lukens Respiratory Culture - Preliminary 01/22/18 21:50 Urine Catheter - Oliva Urine Culture - Preliminary Culture exhibits no growth. 01/23/18 06:50 Mucosa - Nasopharyngeal Respiratory Panel (PCR) - Final Rhinovirus Clinical Impression(s) from Imaging Studies Brain CT 01/22/18 17:32 IMPRESSION: No acute intracranial abnormality. Chronic ischemic and atrophic changes. Sinusitis. N.B. : The above information has been verbally conveyed by Jd Johnson to Mathieu Barnes on 01/22/2018 18:04:53 (ET). Electronically Signed: Jd Johnson, at 18:04 EDT Tel , Service support , Chest X-Ray 01/22/18 18:15 IMPRESSION: Satisfactory position of the support lines and tubes. No acute thoracic pathology. Electronically Signed: Jd Johnson, at 18:58 EDT Tel , Service support , Medical Necessity - Tobacco Use Smoking Status: Never smoker Tobacco Use: Non-smoker Assessment/Plan All Active Problems (Last Reviewed 01/22/18 @ 19:39 by Jamar Saxena DO) Respiratory failure (Acute) Metabolic acidosis (Acute) DKA (diabetic ketoacidoses) (Acute) Hypothermia (Acute) Sinusitis (Acute) Hyperkalemia (Acute) Rhabdomyolysis (Acute) BETH (acute kidney injury) (Acute) DKA, type 1 (Acute) UTI (urinary tract infection) (Acute) RECOMMENDATIONS: 1. Recheck CK level today. 2. Obtain formal nephrology consultation. 3. Recheck plain film chest x-ray this morning. 4. Continue basal insulin regimen and sliding scale coverage. We will plan to up titrate the patient's Lantus dose. 5. Continue empiric antibiotics. 6. Wean Levophed to maintain a mean arterial pressure at or above 65 mmHg. 7. Wean sedation as tolerated. 8. Continue tube feeds as ordered 9. Continue Pepcid and heparin for GI and DVT prophylaxis, respectively. IMPRESSIONS: 1. Acute respiratory failure/rhinovirus URI The patient was intubated upon arrival to the emergency department due to her state of encephalopathy likely precipitated by metabolic derangements in the setting of diabetic ketoacidosis. Her mentation is slowly improving with correction of her underlying metabolic derangements and invasive mechanical ventilation. Plan to continue current supportive measures until the patient's metabolic derangements are completely corrected. 2. Hypovolemic versus septic shock The patient has been volume resuscitated, but remains persistently hypotensive requiring vasopressor support. However, the patient is clinically improving with decreasing vasopressor support. Continue to wean levophed as tolerated. Continue empiric antibiotics at this time given fevers noted overnight. Repeat cultures are currently pending. 3. Metabolic encephalopathy The patient presents to the hospital with profound metabolic derangements in the setting of #4. She is a poorly controlled diabetic with a hemoglobin A1c of greater than 14. I anticipate improvement in her mentation as her underlying metabolic derangements are corrected. She will be maintained on sedation while mechanically ventilated in an attempt to maintain a RASS of -1 to 1. 4. Diabetic ketoacidosis Resolved at this time. Continue basal insulin regimen with upward titration along with sliding scale coverage every 6 hours. 5. Acute kidney injury/rhabdomyolysis Likely multifactorial in etiology with prerenal azotemia/ischemic ATN combined with rhabdomyolysis contributing. Continue current supportive measures. Given worsening renal failure, nephrology has been consulted. Appreciate recommendations. 6. Troponin elevation Likely secondary to demand ischemia in the setting of #2. Echocardiogram is currently pending. UPDATE: I was updated by the patient's daughter, who informs me that per her discussions with her mother prior to her intubation, she would not want any aggressive measures performed. In the setting of worsening renal function, the patient's daughter would now like to pursue palliative withdrawal of life support and a transition to comfort care measures. A hospice care referral has been placed accordingly. TIME: 40 minutes of critical care time, independent of procedures, was spent addressing the patient's acute respiratory failure, hypovolemic/septic shock, metabolic encephalopathy, diabetic ketoacidosis, acute kidney injury, troponin elevation, review of all data and collaboration with the care team. ([id number]) Code Visit [id number]: [id number] Critical care first hour
[2018-01-25 07:09] LABS: Absolute Lymphocyte Count 1.13 X10^3/ul (0.83-4.51); Absolute Neutrophil Count 4.9 X10^3/uL (2.0-7.7); Basophil# 0.01 X10^3/uL; Basophil% 0.1 % (0-1); Eosinophil# 0.07 X10^3/uL; Hematocrit 32.4 % (37-47); Hemoglobin 11.3 g/dl (12.0-15.0); Lymphocyte # 1.13 X10^3/ul (4.0); Lymphocyte % 16.9 % (19-41); Mean Corp Hgb Conc 34.9 g/gl (32-36); Mean Platelet Vol. 9.6 fl (6.2-12.0); Monocyte# 0.54 X10^3/uL; Monocyte% 8.1 % (0-10); Neutrophil # 4.93 X10^3/uL (2.7-7.7); Neutrophil % 73.8 % (47-70); Platelet Count 157 K/mm3 (150-450); RBC Distribution Width CV 14.4 % (11.6-14.6); RBC Distribution Width SD 45.5 fl (35.1-43.9); Red Blood Count 3.64 M/mm3 (4.2-5.4); White Blood Count 6.7 K/mm3 (4.4-11.0)
[2018-01-25 07:16] LABS: Differential Indicated SCAN CRITERIA MET; POSITIVE COUNT NO; POSITIVE DIFFERENTIAL NO; POSITIVE MORPHOLOGY YES
[2018-01-25 07:32] LABS: Differential Comment SCANNED
--- NOTE | 2018-01-25 08:10 | RAD_ITS ---
STUDY: X-RAY CHEST REASON FOR EXAM: Female, 72 years old. Fever. Unresponsive. TECHNIQUE: Single AP upright portable chest view. COMPARISON: Portable chest 01/22/2018 at 1811 hours. FINDINGS: Endotracheal tube appears well position with the inferior tip approximately 4.4 cm above the inferior octavio. Feeding tube is noted, side port is well below the left hemidiaphragm and appears well position with the tip cut off inferiorly. Right IJ central venous catheter is again seen, inferior tip overlies the right superior medial heart shadow and appears partially obscured by numerous EKG wires overlying the same region. Numerous EKG wires and tubing overlie the chest. Lungs appear fairly well ventilated with mild elevation right diaphragm seen. There is no demonstrated pleural abnormality identified. Normal size heart for projection. Normal mediastinum and kiet. Normal visualized pulmonary arteries. Heavily calcified visualized aortic knob and normal-appearing descending thoracic aorta. Normal visualized thoracic spine. Normal visualized ribs, clavicles and shoulders. There is no demonstrated abnormality of the visualized soft tissue structures of the upper abdomen. No subdiaphragmatic free air seen grossly. RAD/Chest 1 View (Portable) IMPRESSION: Well position appearing visualized life-support apparatus as described. Limitations above. No overt fracture identified. Severe aortic knob calcification, stable. Electronically Signed: Андрей Cadena, at 13:02 EDT Tel , Service support ,
[2018-01-25 08:22] LABS: CPK Total, Creatine Kinase 12459 U/L (26-192)
[2018-01-25 08:26] LABS: Bedside Glucose 301 mg/dL (70-110)
[2018-01-25 08:26] LABS: Bedside Glucose 305 mg/dL (70-110)
--- NOTE | 2018-01-25 09:25 | CASEMGMT ---
RN CM Assessment PCP: Dr. Monroe [facility] Insurance: Medicare AB Prescription Benefit:? yes Living Will/HPOA: none LNOK: Daughter Wen, lives in [place] and is interactive with her mother; son lives in [place] but has not seen pt in 12 years. Living Arrangements: alone, one story home. Transportation: Drives DME/HHC: none, daughter states her mother was very independent in all ADL's prior to this event. Intro role of CM to daughter Wen who is a Hospice nurse with [facility] [facility] [employer] [facility]. She states her mother has told her she wanted to be a DNR status. Daughter gave her LW/DPOA papers to take to her physician to complete, however pt did not. Daughter is confident her mother would not want to have prolonged illness with uncertain recovery, and is certain she would not wish hemodialysis. Daughter plans to speak with Dr. Connolly today and is considering Hospice Care. -Daughter states that her brother in [place] has been estranged for 12 years, however she will contact him re: plans and offer opportunity to come to see their mother. ? -emotional support given, questions answered Plan: Undetermined. Daughter is speaking with Dr. Connolly and [facility] physicians today. Nahed HASSANN RN ACM
[2018-01-25] MEDS: fentaNYL drip 100 ML 2.5 MCG IV (09:36)
[2018-01-25] MEDS: Senna/Docusate Sodium 1 Tablet 2 TABLET GT (09:43)
[2018-01-25] MEDS: Polyethylene Glycol 3350 17 GM PACKET GT (09:43)
[2018-01-25] MEDS: Chlorhexidine 15 ML PO (09:45)
[2018-01-25] MEDS: Famotidine 20 MG Tablet GT (09:46)
--- NOTE | 2018-01-25 10:00 | PCM.CONS.R ---
Problem List (1) BETH (acute kidney injury) Status: Acute Consultation - Renal 01/25/18 PCP/ Referring MD: Requesting physician: Dr Dow Primary care physician: Tyrone Monroe MD Reason for Consultation:: BETH - History of Present Illness History of Present Illness: The patient is a 72 year old F who was admitted to hospital 2 days ago after she was found to be down on the floor. admitted with a diagnosis of DKA, sepsis with suspected source of sinus, BETH, rhabdo. Renal consulted for BETH. normal baseline as of November 2017. Creatinine has been slowly worsening over the last 3 days. now urine output low, CPK in [id number] patient is intubated, history from charts mostly - Allergies Allergies: Allergies Iodinated Contrast- Oral and IV Dye [Iodinated Contrast Media - IV Dye] Allergy (Mild, Verified 12/10/17 09:35) Rash face/chest very red Penicillins Allergy (Unknown, Verified 12/10/17 09:35) mother told her she was allergic mother told her she was allergic Sulfa (Sulfonamide Antibiotics) Allergy (Unknown, Verified 12/10/17 09:35) mother told her she was allergic mother told her she was allergic - Current Medications Current Medications: Current Medications Acetaminophen (Tylenol Liquid) 650 mg GT Q6H PRN PRN PRN Reason: FEVER Last Admin: 01/24/18 16:08 Dose: 650 mg Albuterol Sulfate (Ventolin Aerosols) 2.5 mg INHALATION Q2H PRN PRN PRN Reason: SHORTNESS OF BREATH Chlorhexidine Gluconate () 15 ml PO BID [facility] Last Admin: 01/25/18 09:45 Dose: 15 ml Chlorhexidine Gluconate () 1 each TOPICAL DAILY [facility] Last Admin: 01/25/18 04:04 Dose: 1 each Dextrose (D50w Syringe) 0 gm IV X1 PRN; Protocol PRN Reason: HYPOGLYCEMIA Famotidine (Pepcid) 20 mg GT DAILY [facility] Last Admin: 01/25/18 09:46 Dose: 20 mg Glucagon () 1 mg IM .X1 PRN PRN Reason: Hypoglycemia Heparin Sodium (Porcine) (Heparin Na) 5,000 unit SC Q8 [facility] Last Admin: 01/25/18 05:32 Dose: 5,000 unit Norepinephrine Bitartrate 8 mg (/ Dextrose) 258 mls @ 9.68 mls/hr IV .[id number] [facility] Last Admin: 10/08/18 04:04 Dose: 9.68 mls/hr Sodium Chloride () 250 mls @ 15 mls/hr IV .[id number] PRN PRN Reason: SALINE FLUSH Meropenem 500 mg/ Sodium (Chloride) 60 mls @ 100 mls/hr IV Q12 [facility] Last Admin: 01/25/18 09:43 Dose: 100 mls/hr Dexmedetomidine HCl 400 mcg/ (Sodium Chloride) 100 mls @ 8.26 mls/hr IV .Q12H7M [facility] Last Admin: 01/25/18 09:44 Dose: 8.26 mls/hr Fentanyl () 100 mls @ 2.5 mls/hr IV .Q40H [facility] Last Admin: 01/25/18 09:36 Dose: 2.5 mls/hr Vancomycin IV Pharmacy to Dose (1 ea/ Sodium Chloride) 500 mls @ 250 mls/hr IV PRN PRN; Protocol PRN Reason: Rx to Dose Enteral Nutritional Formula (Vital Af 1.2 Jaret Liquid) 1,000 mls @ 60 mls/hr GT .[id number] [facility] Last Admin: 01/25/18 01:27 Dose: Not Given Insulin Glargine (Lantus (Bkc)) 20 units SC 0600,1800 [facility] Last Admin: 01/25/18 09:41 Dose: 20 u Insulin Human Lispro (Humalog Kwikpen (Bkc)) 0 unit SC Q6 [facility]; Protocol Last Admin: 01/25/18 05:32 Dose: 6 u Magnesium Hydroxide (Milk Of Magnesia) 30 ml PO DAILY PRN PRN PRN Reason: Constipation Polyethylene Glycol (Miralax) 17 gm GT BID [facility] Last Admin: 01/25/18 09:43 Dose: 17 gm Senna/Docusate Sodium (Senokot-S, Estela-Colace) 2 tablet GT BID [facility] Last Admin: 01/25/18 09:43 Dose: 2 tablet Sodium Chloride () 5 - 30 ml IV UD PRN PRN Reason: SALINE FLUSH Last Admin: 01/25/18 09:42 Dose: 20 ml Sodium Chloride () 10 - 40 ml IV UD PRN PRN Reason: MULTILUMEN/HICMAN CATH FLUSH Last Admin: 01/23/18 04:01 Dose: 20 ml - Past Medical History Past Medical History (Chronic Problems): Chronic Problems (Last Reviewed 01/22/18 @ 19:39 by Jamar Saxena DO) Dyslipidemia (Chronic) Diabetes type I (Chronic) - Past Surgical History Surgical History: hysterectomy - Social History Smoking Status: Never smoker - Family History Maternal Family History: Family History (Last Reviewed 01/22/18 @ 19:39 by Jamar Saxena DO) Mother Diabetes Heart disease History Items: Diabetes Review of Systems Unable to obtain accurate/complete ROS d/t: intubated Patient Problems: Active and Suspected Problems (Last Reviewed 01/22/18 @ 19:39 by Jamar Saxena DO) Respiratory failure (Acute) Metabolic acidosis (Acute) DKA (diabetic ketoacidoses) (Acute) Hypothermia (Acute) Sinusitis (Acute) Hyperkalemia (Acute) Rhabdomyolysis (Acute) BETH (acute kidney injury) (Acute) - Physical Exam HEENT: Atraumatic, PERRLA, EOMI, Normocephalic Neck: Supple, No JVD, Negative Carotid Bruits Lungs: Clear to auscultation, Normal air movement Cardiovascular: Regular rate, No murmurs Abdomen: Bowel Sounds Present, Soft, Non Tender Extremities: No edema, Capillary Refill Less than 3 Seconds Skin: No rashes, No breakdown Musculoskeletal: No Tenderness to Palpation of Joints or Extremities Vital Signs Temp Pulse Resp BP Pulse Ox 100.7 F H 81 14 116/62 100 01/25/18 08:00 01/25/18 09:00 01/25/18 09:00 01/25/18 09:00 01/25/18 09:00 Oxygen Delivery Method Mechanical Ventilator Weight: 71.4 kg Body Mass Index (BMI) 23.9 Finger Stick Blood Glucose 122 Intake and Output for Last 24 Hours 01/23/18 01/24/18 01/25/18 23:59 23:59 23:59 Intake Total 6548.6 / 6548.6 3137 / 3137 1407 / 1407 Output Total 1920 / 1920 470 / 470 350 / 350 Balance 4628.6 / 4628.6 2667 / 2667 1057 / 1057 Microbiology Past 72 Hours 01/22/18 21:50 Urine Culture - Final Urine Catheter - Oliva Culture exhibits no growth. 01/22/18 21:45 Blood Culture - Preliminary Blood Culture (Wb) - Right Hand No growth in 48 hours. 01/22/18 21:25 Blood Culture - Preliminary Blood Culture (Wb) - Venous No growth in 48 hours. 01/23/18 09:05 Gram Stain - Final Sputum, Induced/Lukens Respiratory Culture - Preliminary 01/23/18 06:50 Respiratory Panel (PCR) - Final Mucosa - Nasopharyngeal Rhinovirus Laboratory Tests Past 24 Hrs 01/25/18 01/25/18 01/25/18 06:15 06:15 06:15 WBC 6.7 RBC 3.64 L Hgb 11.3 L Hct 32.4 L MCV 89.0 MCH 31.0 MCHC 34.9 RDW 14.4 RDW Differential 45.5 H Plt Count 157 MPV 9.6 Immature Gran % (Auto) 0.100 Neut % (Auto) 73.8 H Lymph % (Auto) 16.9 L Pratt % (Auto) 8.1 Eos % (Auto) 1.0 Baso % (Auto) 0.1 Absolute Neuts (auto) 4.9 Absolute Lymphs (auto) 1.13 Total Counted Not Reportable Differential Comment SCANNED Sodium 144 Potassium 4.3 Chloride 118 H Carbon Dioxide 17.0 L Anion Gap 9 BUN 59 H Creatinine 3.74 H Estim Creat Clear Calc 11.74 Est GFR (MDRD) Af Amer 15 L Est GFR (MDRD) Non-Af 13 L BUN/Creatinine Ratio 15.8 Glucose 218 H Calcium 7.8 L Total Bilirubin 0.30 AST 347 H ALT 206 H Alkaline Phosphatase 112 Total Creatine Kinase 98642 H Total Protein 5.1 L Albumin 2.0 L Globulin 3.1 Albumin/Globulin Ratio 0.6 L Random Vancomycin 01/25/18 09:30 WBC RBC Hgb Hct MCV MCH MCHC RDW RDW Differential Plt Count MPV Immature Gran % (Auto) Neut % (Auto) Lymph % (Auto) Pratt % (Auto) Eos % (Auto) Baso % (Auto) Absolute Neuts (auto) Absolute Lymphs (auto) Total Counted Differential Comment Sodium Potassium Chloride Carbon Dioxide Anion Gap BUN Creatinine Estim Creat Clear Calc Est GFR (MDRD) Af Amer Est GFR (MDRD) Non-Af BUN/Creatinine Ratio Glucose Calcium Total Bilirubin AST ALT Alkaline Phosphatase Total Creatine Kinase Total Protein Albumin Globulin Albumin/Globulin Ratio Random Vancomycin Pending POC Glucose 01/25/18 01/24/18 01/24/18 05:29 23:58 21:08 POC Glucose 226 H 315 H 370 H 01/24/18 01/24/18 01/24/18 18:22 18:20 12:01 POC Glucose 301 H 305 H 166 H 01/24/18 10:11 POC Glucose 125 H Assessment/Plan All Active Problems (Last Reviewed 01/22/18 @ 19:39 by Jamar Saxena DO) Respiratory failure (Acute) Metabolic acidosis (Acute) DKA (diabetic ketoacidoses) (Acute) Hypothermia (Acute) Sinusitis (Acute) Hyperkalemia (Acute) Rhabdomyolysis (Acute) BETH (acute kidney injury) (Acute) DKA, type 1 (Acute) UTI (urinary tract infection) (Acute) BETH Rhabdomyolysis DKA Acidosis has improved. BETH is likely related to ATN from rhabdomyolysis. Oliva is indwelling hence chances of obstruction are low. UA reviewed Discussed with daughter larissa zaidi who is a hospice nurse. patient has mentioned to them that she did not want aggressive measures. will try lasix IV. If no response they would consider hospice she is positive by 8 L since admission. hence will give fluids only if she has good urine output with lasix. would give 80 mg IV d/w Dr dow d/w daughter
--- NOTE | 2018-01-25 10:06 | CON.PCM_ITS ---
Problem List (1) BETH (acute kidney injury) Status: Acute Consultation - Renal 01/25/18 PCP/ Referring MD: Requesting physician: Dr Dow Primary care physician: Tyrone Monroe MD Reason for Consultation:: BETH - History of Present Illness History of Present Illness: The patient is a 72 year old F who was admitted to hospital 2 days ago after she was found to be down on the floor. admitted with a diagnosis of DKA, sepsis with suspected source of sinus, BETH, rhabdo. Renal consulted for BETH. normal baseline as of November 2017. Creatinine has been slowly worsening over the last 3 days. now urine output low, CPK in 60087f patient is intubated, history from charts mostly - Allergies Allergies: Allergies Iodinated Contrast- Oral and IV Dye [Iodinated Contrast Media - IV Dye] Allergy (Mild, Verified 12/10/17 09:35) Rash face/chest very red Penicillins Allergy (Unknown, Verified 12/10/17 09:35) mother told her she was allergic mother told her she was allergic Sulfa (Sulfonamide Antibiotics) Allergy (Unknown, Verified 12/10/17 09:35) mother told her she was allergic mother told her she was allergic - Current Medications Current Medications: Current Medications Acetaminophen (Tylenol Liquid) 650 mg GT Q6H PRN PRN PRN Reason: FEVER Last Admin: 01/24/18 16:08 Dose: 650 mg Albuterol Sulfate (Ventolin Aerosols) 2.5 mg INHALATION Q2H PRN PRN PRN Reason: SHORTNESS OF BREATH Chlorhexidine Gluconate () 15 ml PO BID [facility] Last Admin: 01/25/18 09:45 Dose: 15 ml Chlorhexidine Gluconate () 1 each TOPICAL DAILY [facility] Last Admin: 01/25/18 04:04 Dose: 1 each Dextrose (D50w Syringe) 0 gm IV X1 PRN; Protocol PRN Reason: HYPOGLYCEMIA Famotidine (Pepcid) 20 mg GT DAILY [facility] Last Admin: 01/25/18 09:46 Dose: 20 mg Glucagon () 1 mg IM .X1 PRN PRN Reason: Hypoglycemia Heparin Sodium (Porcine) (Heparin Na) 5,000 unit SC Q8 [facility] Last Admin: 01/25/18 05:32 Dose: 5,000 unit Norepinephrine Bitartrate 8 mg (/ Dextrose) 258 mls @ 9.68 mls/hr IV .[id number] [facility] Last Admin: 10/08/18 04:04 Dose: 9.68 mls/hr Sodium Chloride () 250 mls @ 15 mls/hr IV .[id number] PRN PRN Reason: SALINE FLUSH Meropenem 500 mg/ Sodium (Chloride) 60 mls @ 100 mls/hr IV Q12 [facility] Last Admin: 01/25/18 09:43 Dose: 100 mls/hr Dexmedetomidine HCl 400 mcg/ (Sodium Chloride) 100 mls @ 8.26 mls/hr IV .Q12H7M [facility] Last Admin: 01/25/18 09:44 Dose: 8.26 mls/hr Fentanyl () 100 mls @ 2.5 mls/hr IV .Q40H [facility] Last Admin: 01/25/18 09:36 Dose: 2.5 mls/hr Vancomycin IV Pharmacy to Dose (1 ea/ Sodium Chloride) 500 mls @ 250 mls/hr IV PRN PRN; Protocol PRN Reason: Rx to Dose Enteral Nutritional Formula (Vital Af 1.2 Jaret Liquid) 1,000 mls @ 60 mls/hr GT .[id number] [facility] Last Admin: 01/25/18 01:27 Dose: Not Given Insulin Glargine (Lantus (Bkc)) 20 units SC 0600,1800 [facility] Last Admin: 01/25/18 09:41 Dose: 20 u Insulin Human Lispro (Humalog Kwikpen (Bkc)) 0 unit SC Q6 [facility]; Protocol Last Admin: 01/25/18 05:32 Dose: 6 u Magnesium Hydroxide (Milk Of Magnesia) 30 ml PO DAILY PRN PRN PRN Reason: Constipation Polyethylene Glycol (Miralax) 17 gm GT BID [facility] Last Admin: 01/25/18 09:43 Dose: 17 gm Senna/Docusate Sodium (Senokot-S, Estela-Colace) 2 tablet GT BID [facility] Last Admin: 01/25/18 09:43 Dose: 2 tablet Sodium Chloride () 5 - 30 ml IV UD PRN PRN Reason: SALINE FLUSH Last Admin: 01/25/18 09:42 Dose: 20 ml Sodium Chloride () 10 - 40 ml IV UD PRN PRN Reason: MULTILUMEN/HICMAN CATH FLUSH Last Admin: 01/23/18 04:01 Dose: 20 ml - Past Medical History Past Medical History (Chronic Problems): Chronic Problems (Last Reviewed 01/22/18 @ 19:39 by Jamar Saxena DO) Dyslipidemia (Chronic) Diabetes type I (Chronic) - Past Surgical History Surgical History: hysterectomy - Social History Smoking Status: Never smoker - Family History Maternal Family History: Family History (Last Reviewed 01/22/18 @ 19:39 by Jamar Saxena DO) Mother Diabetes Heart disease History Items: Diabetes Review of Systems Unable to obtain accurate/complete ROS d/t: intubated Patient Problems: Active and Suspected Problems (Last Reviewed 01/22/18 @ 19:39 by Jamar Saxena DO) Respiratory failure (Acute) Metabolic acidosis (Acute) DKA (diabetic ketoacidoses) (Acute) Hypothermia (Acute) Sinusitis (Acute) Hyperkalemia (Acute) Rhabdomyolysis (Acute) BETH (acute kidney injury) (Acute) - Physical Exam HEENT: Atraumatic, PERRLA, EOMI, Normocephalic Neck: Supple, No JVD, Negative Carotid Bruits Lungs: Clear to auscultation, Normal air movement Cardiovascular: Regular rate, No murmurs Abdomen: Bowel Sounds Present, Soft, Non Tender Extremities: No edema, Capillary Refill Less than 3 Seconds Skin: No rashes, No breakdown Musculoskeletal: No Tenderness to Palpation of Joints or Extremities Vital Signs Temp Pulse Resp BP Pulse Ox 100.7 F H 81 14 116/62 100 01/25/18 08:00 01/25/18 09:00 01/25/18 09:00 01/25/18 09:00 01/25/18 09:00 Oxygen Delivery Method Mechanical Ventilator Weight: 71.4 kg Body Mass Index (BMI) 23.9 Finger Stick Blood Glucose 122 Intake and Output for Last 24 Hours 01/23/18 01/24/18 01/25/18 23:59 23:59 23:59 Intake Total 6548.6 / 6548.6 3137 / 3137 1407 / 1407 Output Total 1920 / 1920 470 / 470 350 / 350 Balance 4628.6 / 4628.6 2667 / 2667 1057 / 1057 Microbiology Past 72 Hours 01/22/18 21:50 Urine Culture - Final Urine Catheter - Oliva Culture exhibits no growth. 01/22/18 21:45 Blood Culture - Preliminary Blood Culture (Wb) - Right Hand No growth in 48 hours. 01/22/18 21:25 Blood Culture - Preliminary Blood Culture (Wb) - Venous No growth in 48 hours. 01/23/18 09:05 Gram Stain - Final Sputum, Induced/Lukens Respiratory Culture - Preliminary 01/23/18 06:50 Respiratory Panel (PCR) - Final Mucosa - Nasopharyngeal Rhinovirus Laboratory Tests Past 24 Hrs 01/25/18 01/25/18 01/25/18 06:15 06:15 06:15 WBC 6.7 RBC 3.64 L Hgb 11.3 L Hct 32.4 L MCV 89.0 MCH 31.0 MCHC 34.9 RDW 14.4 RDW Differential 45.5 H Plt Count 157 MPV 9.6 Immature Gran % (Auto) 0.100 Neut % (Auto) 73.8 H Lymph % (Auto) 16.9 L [place] % (Auto) 8.1 Eos % (Auto) 1.0 Baso % (Auto) 0.1 Absolute Neuts (auto) 4.9 Absolute Lymphs (auto) 1.13 Total Counted Not Reportable Differential Comment SCANNED Sodium 144 Potassium 4.3 Chloride 118 H Carbon Dioxide 17.0 L Anion Gap 9 BUN 59 H Creatinine 3.74 H Estim Creat Clear Calc 11.74 Est GFR (MDRD) Af Amer 15 L Est GFR (MDRD) Non-Af 13 L BUN/Creatinine Ratio 15.8 Glucose 218 H Calcium 7.8 L Total Bilirubin 0.30 AST 347 H ALT 206 H Alkaline Phosphatase 112 Total Creatine Kinase 76688 H Total Protein 5.1 L Albumin 2.0 L Globulin 3.1 Albumin/Globulin Ratio 0.6 L Random Vancomycin 01/25/18 09:30 WBC RBC Hgb Hct MCV MCH MCHC RDW RDW Differential Plt Count MPV Immature Gran % (Auto) Neut % (Auto) Lymph % (Auto) [place] % (Auto) Eos % (Auto) Baso % (Auto) Absolute Neuts (auto) Absolute Lymphs (auto) Total Counted Differential Comment Sodium Potassium Chloride Carbon Dioxide Anion Gap BUN Creatinine Estim Creat Clear Calc Est GFR (MDRD) Af Amer Est GFR (MDRD) Non-Af BUN/Creatinine Ratio Glucose Calcium Total Bilirubin AST ALT Alkaline Phosphatase Total Creatine Kinase Total Protein Albumin Globulin Albumin/Globulin Ratio Random Vancomycin Pending POC Glucose 01/25/18 01/24/18 01/24/18 05:29 23:58 21:08 POC Glucose 226 H 315 H 370 H 01/24/18 01/24/18 01/24/18 18:22 18:20 12:01 POC Glucose 301 H 305 H 166 H 01/24/18 10:11 POC Glucose 125 H Assessment/Plan All Active Problems (Last Reviewed 01/22/18 @ 19:39 by Jamar Saxena DO) Respiratory failure (Acute) Metabolic acidosis (Acute) DKA (diabetic ketoacidoses) (Acute) Hypothermia (Acute) Sinusitis (Acute) Hyperkalemia (Acute) Rhabdomyolysis (Acute) BETH (acute kidney injury) (Acute) DKA, type 1 (Acute) UTI (urinary tract infection) (Acute) BETH Rhabdomyolysis DKA Acidosis has improved. BETH is likely related to ATN from rhabdomyolysis. Oliva is indwelling hence chances of obstruction are low. UA reviewed Discussed with daughter larissa zaidi who is a hospice nurse. patient has mentioned to them that she did not want aggressive measures. will try lasix IV. If no response they would consider hospice she is positive by 8 L since admission. hence will give fluids only if she has good urine output with lasix. would give 80 mg IV d/w Dr dow d/w daughter
[2018-01-25 10:16] LABS: Vancomycin, Random Level 11.7 ug/mL (0.0-15.0)
[2018-01-25 10:25] LABS: Bedside Glucose 146 mg/dL (70-110)
--- NOTE | 2018-01-25 11:11 | NURSING ---
PT'S DAUGHTER CALLED IN AND STATES SHE WISHES FOR PATIENT TO GO TO HOSPICE. DOES NOT WISH FOR PATIENT TO HAVE BLOOD SUGARS CHECKED AT THIS TIME. ASKED THIS RN TO TURN OFF TUBE FEED AND TO NOT GIVE IV LASIX THAT WAS ORDERED. THIS INFORMATION RELAYED TO DR WEST.
--- NOTE | 2018-01-25 14:20 | CHAPLAIN ---
Type of Pastoral Visit _x__ Initial Visit ___ Follow-up Visit ___ On-call Visit ___ General Patient Visit ___ Spiritual Assessment ___ Family Conference ___ Bereavement ___ Rapid Response ___ Code Blue ___ Other (describe below) Pastoral Care Referral From ___ Patient _x__ Family ___ Nurse ___ Physician ___ Director Of Compensation ___ Note Teller ___ Other (describe below) Sacrament/Intervention _x__ Active listening ___ Anointing ___ Bahai ___ Bereavement ___ Communion _x__ Jo Ann exploration ___ ___ Life review _x__ Prayer ___ Reconciliation ___ Sacrament of Sick _x__ Supportive presence ___ Wedding ___ Other (describe below) Pastoral Comments patient is unresponsive; daughter is in room and her spouse comes in later during visit; daughter explains situation and that she is following her mother's wishes; hospice will be admitting pt; daughter is a financial controller; daughter explains that her only brother is in agreement with decision and he is in [place]; according to family the patient does not have a sabianist affiliation but was of the Yazidism jo ann many years ago; prayer is offered; ongoing support is offered to family as desired
--- NOTE | 2018-01-25 16:05 | NURSING ---
levophed not being titrated at this time due to patient going to be hospice.
[2018-01-25] MEDS: LORazepam 2 MG/ML Syringe IV (17:31)
--- NOTE | 2018-01-25 17:44 | NURSING ---
extubated at 1735 per family wishes. levo, fentanyl and precedex drips off. family and inspector automatic typewriter at bedside
--- NOTE | 2018-01-25 17:45 | CPS ---
PLANNED TERMINAL EXTUBATION DONE W/O PROBLEMS. FAMILY PRESENT. PLACED PT ON 2LPM O2 FOR COMFORT.
--- NOTE | 2018-01-25 18:16 | PN_ITS ---
Patient Problems: Active and Suspected Problems (Last Reviewed 01/22/18 @ 19:39 by Jamar Saxena DO) Respiratory failure (Acute) Metabolic acidosis (Acute) DKA (diabetic ketoacidoses) (Acute) Hypothermia (Acute) Sinusitis (Acute) Hyperkalemia (Acute) Rhabdomyolysis (Acute) BETH (acute kidney injury) (Acute) Subjective: Patient was seen and examined today, she remains sedated and on the ventilator at this time, family members came in today and the daughter has decided to stop all life supporting measures including the ventilator today, if the patient is stable afterwards, she would like the patient to go to the inpatient hospice facility and hospice has accepted the patient. At the time of this dictation, patient is stable off the ventilator and off pressor agents, I do not believe this will continue however long-term as I believe the patient is declining. Patient's creatinine today was increased over yesterday as was her CPK. - Physical Exam General: No apparent distress, Well developed, Well nourished, - - Patient is comatose at this time HEENT: Atraumatic, Normocephalic Neck: Trachea Midline, Thyroid Normal Size and Texture Lungs: Clear to auscultation, Normal air movement, No rhonchi, No wheeze, No rales Cardiovascular: Regular rate, Regular Rhythm, Normal S1, Normal S2, No murmurs, No Ectopic Activity, PMI Normal, No rub noted, No Gallop Abdomen: Bowel Sounds Present, Soft, Non Tender, Non-Distended Extremities: No edema Skin: No rashes, No breakdown Neurological: Cranial nerves II-XII grossly intact Psych/Mental Status: - - Patient is comatose at this time Vital Signs Temp Pulse Resp BP Pulse Ox 100.7 F H 76 13 85/47 L 100 01/25/18 16:00 01/25/18 17:59 01/25/18 17:59 01/25/18 17:59 01/25/18 17:59 Oxygen Flow Rate (L/min) 2 Oxygen Delivery Method Nasal Cannula Weight: 71.4 kg Body Mass Index (BMI) 23.9 Finger Stick Blood Glucose 122 Intake and Output for Last 24 Hours 01/23/18 01/24/18 01/25/18 23:59 23:59 23:59 Intake Total 6548.6 / 6548.6 3137 / 3137 1817 / 1817 Output Total 0 / 1920 470 / 470 500 / 500 Balance 4628.6 / 4628.6 2667 / 2667 1317 / 1317 Microbiology Past 72 Hours 01/23/18 09:05 Gram Stain - Final Sputum, Induced/Lukens Respiratory Culture - Final Presumptive C albicans Mixed Brynn 01/22/18 21:50 Urine Culture - Final Urine Catheter - Oliva Culture exhibits no growth. 01/22/18 21:45 Blood Culture - Preliminary Blood Culture (Wb) - Right Hand No growth in 48 hours. 01/22/18 21:25 Blood Culture - Preliminary Blood Culture (Wb) - Venous No growth in 48 hours. 01/23/18 06:50 Respiratory Panel (PCR) - Final Mucosa - Nasopharyngeal Rhinovirus Laboratory Tests Past 24 Hrs 01/25/18 01/25/18 01/25/18 06:15 06:15 06:15 WBC 6.7 RBC 3.64 L Hgb 11.3 L Hct 32.4 L MCV 89.0 MCH 31.0 MCHC 34.9 RDW 14.4 RDW Differential 45.5 H Plt Count 157 MPV 9.6 Immature Gran % (Auto) 0.100 Neut % (Auto) 73.8 H Lymph % (Auto) 16.9 L Lumpkin % (Auto) 8.1 Eos % (Auto) 1.0 Baso % (Auto) 0.1 Absolute Neuts (auto) 4.9 Absolute Lymphs (auto) 1.13 Total Counted Not Reportable Differential Comment SCANNED Sodium 144 Potassium 4.3 Chloride 118 H Carbon Dioxide 17.0 L Anion Gap 9 BUN 59 H Creatinine 3.74 H Estim Creat Clear Calc 11.74 Est GFR (MDRD) Af Amer 15 L Est GFR (MDRD) Non-Af 13 L BUN/Creatinine Ratio 15.8 Glucose 218 H Calcium 7.8 L Total Bilirubin 0.30 AST 347 H ALT 206 H Alkaline Phosphatase 112 Total Creatine Kinase 86132 H Total Protein 5.1 L Albumin 2.0 L Globulin 3.1 Albumin/Globulin Ratio 0.6 L Random Vancomycin 01/25/18 09:30 WBC RBC Hgb Hct MCV MCH MCHC RDW RDW Differential Plt Count MPV Immature Gran % (Auto) Neut % (Auto) Lymph % (Auto) Lumpkin % (Auto) Eos % (Auto) Baso % (Auto) Absolute Neuts (auto) Absolute Lymphs (auto) Total Counted Differential Comment Sodium Potassium Chloride Carbon Dioxide Anion Gap BUN Creatinine Estim Creat Clear Calc Est GFR (MDRD) Af Amer Est GFR (MDRD) Non-Af BUN/Creatinine Ratio Glucose Calcium Total Bilirubin AST ALT Alkaline Phosphatase Total Creatine Kinase Total Protein Albumin Globulin Albumin/Globulin Ratio Random Vancomycin 11.7 POC Glucose 01/25/18 01/25/18 01/24/18 09:35 05:29 23:58 POC Glucose 146 H 226 H 315 H 01/24/18 01/24/18 01/24/18 21:08 18:22 18:20 POC Glucose 370 H 301 H 305 H Medical Necessity - Tobacco Use Smoking Status: Never smoker Tobacco Use: Non-smoker Assessment/Plan All Active Problems (Last Reviewed 01/22/18 @ 19:39 by Jamar Saxena DO) Respiratory failure (Acute) Metabolic acidosis (Acute) DKA (diabetic ketoacidoses) (Acute) Hypothermia (Acute) Sinusitis (Acute) Hyperkalemia (Acute) Rhabdomyolysis (Acute) BETH (acute kidney injury) (Acute) DKA, type 1 (Acute) UTI (urinary tract infection) (Acute) #1 acute respiratory failure-probably precipitated by metabolic derangements in the setting of DKA, again patient is currently off the ventilator and is tolerating it for now, the plan is for the patient to go to hospice later on tonight if she remains medically stable. Patient's CODE STATUS was changed to comfort care #2 probable septic shock-etiology unclear at this point, patient has +4 gram- positive cocci noted on sputum Gram stain, she is positive for rhinovirus also, again patient will be taken to hospice inpatient tonight and antibiotics will not be continued #3 metabolic encephalopathy secondary to diabetic ketoacidosis #4 diabetic ketoacidosis-resolved at this time #5 acute kidney injury secondary to rhabdomyolysis #6 rhabdomyolysis #7 elevated troponin-probably result of demand ischemia #8 elevated liver enzymes-possibly secondary to shock liver #9 rhinovirus respiratory infection Code Visit Inpatient E&M: 43678 Subs Hosp L2
[2018-01-25] MEDS: Morphine 4 MG/ML Syringe IV (18:43)
--- NOTE | 2018-01-28 07:28 | PCM.DC.SUM ---
Discharge Date and Diagnosis Date of Admission: 01/22/18 - Primary Discharge Diagnosis #1 acute respiratory failure #2 probable septic shock secondary to bacteria-type unknown #3 metabolic encephalopathy secondary to diabetic ketoacidosis #4 diabetic ketoacidosis #5 acute kidney injury secondary to rhabdomyolysis #6 rhabdomyolysis #7 elevated troponin secondary to demand ischemia #8 elevated liver enzymes secondary to shock liver #9 rhinovirus respiratory infection-acute, present on admission - Secondary Discharge Diagnosis Chronic Problems (Last Reviewed 01/22/18 @ 19:39 by Jamar Saxena DO) Dyslipidemia (Chronic) Diabetes type I (Chronic) Hospital Course and Treatment Operations: None Procedures: 2-D Echocardiogram Summary of Care Provided: The patient is a 72 year old F who was seen in the emergency room at [facility] after being brought in by squad unresponsive. Patient was found by her family on the afternoon of 01/22/18, she was unresponsive and had agonal breathing. EMS noted that the patient was hypothermic and her blood sugar was high. Evaluation in the emergency room revealed the patient to be minimally responsive and it was felt that she had to be intubated for airway protection. Patient was intubated without incident, labs showed evidence of DKA-her pH was 6.6 and her blood sugars greater than 1000. There is also evidence of acute kidney injury with elevated creatinine and BUN and elevated CPK indicating rhabdomyolysis. Patient's initial potassium was also high at 7.4. Patient was admitted to ICU, she was seen in consultation by critical care and nephrology. Patient required pressor support-it was unknown whether this shock was due to sepsis or hypovolemia. Patient was maintained on an insulin drip in the ICU and was given IV fluids. Patient's troponin was noted to be elevated and this was felt to be secondary to demand ischemia. Discussions were carried out with family members including the patient's daughter and due to her overall poor prognosis and her worsening renal failure, the daughter decided to extubate the patient and discontinue all life support measures including pressors. Following her extubation, patient's vital signs appeared stable and after approximately an hour, patient was transferred to the inpatient hospice care facility. She was stable for discharge at that time-prognosis was poor Physical exam: Vitals: Blood pressure 85/47, respirations 13, pulse 76, temperature 100.7 General: No apparent distress, Well developed, Well nourished, - - Patient is comatose at this time HEENT: Atraumatic, Normocephalic Neck: Trachea Midline, Thyroid Normal Size and Texture Lungs: Clear to auscultation, Normal air movement, No rhonchi, No wheeze, No rales Cardiovascular: Regular rate, Regular Rhythm, Normal S1, Normal S2, No murmurs, No Ectopic Activity, PMI Normal, No rub noted, No Gallop Abdomen: Bowel Sounds Present, Soft, Non Tender, Non-Distended Extremities: No edema Skin: No rashes, No breakdown Neurological: Cranial nerves II-XII grossly intact Psych/Mental Status: - - Patient is comatose at this time - Physical Exam Vital Signs Temp Pulse Resp BP Pulse Ox 100.7 F H 76 13 85/47 L 100 01/25/18 18:55 01/25/18 18:55 10 18:55 01/25/18 18:55 01/25/18 18:55 Oxygen Flow Rate (L/min) 2 Oxygen Delivery Method Nasal Cannula Weight: 71.4 kg Body Mass Index (BMI) 23.9 Finger Stick Blood Glucose 122 Microbiology Past 72 Hours 01/22/18 21:45 Blood Culture - Final Blood Culture (Wb) - Right Hand No growth in 5 days. 01/22/18 21:25 Blood Culture - Final Blood Culture (Wb) - Venous No growth in 5 days. 01/24/18 18:50 Blood Culture - Preliminary Blood Culture (Wb) - Left Forearm No growth in 48 hours. 01/24/18 18:00 Blood Culture - Preliminary Blood Culture (Wb) - Central Line No growth in 48 hours. 01/23/18 09:05 Gram Stain - Final Sputum, Induced/Lukens Respiratory Culture - Final Presumptive C albicans Mixed Brynn 01/22/18 21:50 Urine Culture - Final Urine Catheter - Oliva Culture exhibits no growth. Home Medications: Medications to take at Discharge Aspirin [Aspirin, Baby] 81 mg PO QHS 04/23/14 Humalog U- 100 Insulin 100 unit/mL subcutaneous solution See Rx Instructions SC .COMPLEX #20 ml NS 11/26/17 Lantus U- 100 Insulin 100 unit/mL subcutaneous solution 20 unit SC QHS #10 ml NS 11/26/17 enalapril maleate 20 mg tablet 20 mg PO QHS #30 tab 11/26/17 Simvastatin 80 mg PO QHS 10/05/18 Primary Care Physician: Tyrone Monroe MD [Primary Care Provider] - Disposition: Hospice Medical Facility Minutes spent on discharge:: 35 Patient Condition:: Stable Medical Necessity - Tobacco Use Smoking Status: Never smoker Tobacco Use: Non-smoker Meaningful Use Info Meaningful Use Diagnoses (Choose all that apply): None applicable Code Visit Inpatient E&M: 21184 Disch Hosp
--- NOTE | 2018-01-28 07:34 | DS.PCM_ITS ---
Discharge Date and Diagnosis Date of Admission: 01/22/18 - Primary Discharge Diagnosis #1 acute respiratory failure #2 probable septic shock secondary to bacteria-type unknown #3 metabolic encephalopathy secondary to diabetic ketoacidosis #4 diabetic ketoacidosis #5 acute kidney injury secondary to rhabdomyolysis #6 rhabdomyolysis #7 elevated troponin secondary to demand ischemia #8 elevated liver enzymes secondary to shock liver #9 rhinovirus respiratory infection-acute, present on admission - Secondary Discharge Diagnosis Chronic Problems (Last Reviewed 01/22/18 @ 19:39 by Jamar Saxena DO) Dyslipidemia (Chronic) Diabetes type I (Chronic) Hospital Course and Treatment Operations: None Procedures: 2-D Echocardiogram Summary of Care Provided: The patient is a 72 year old F who was seen in the emergency room at [facility] after being brought in by squad unresponsive. Patient was found by her family on the afternoon of 01/22/18, she was unresponsive and had agonal breathing. EMS noted that the patient was hypothermic and her blood sugar was high. Evaluation in the emergency room revealed the patient to be minimally responsive and it was felt that she had to be intubated for airway protection. Patient was intubated without incident, labs showed evidence of DKA-her pH was 6.6 and her blood sugars greater than 1000. There is also ev idence of acute kidney injury with elevated creatinine and BUN and elevated CPK indicating rhabdomyolysis. Patient's initial potassium was also high at 7.4. Patient was admitted to ICU, she was seen in consultation by critical care and nephrology. Patient required pressor support-it was unknown whether this shock was due to sepsis or hypovolemia. Patient was maintained on an insulin drip in the ICU and was given IV fluids. Patient's troponin was noted to be elevated and this was felt to be secondary to demand ischemia. Discussions were carried out with family members including the patient's daughter and due to her overall poor prognosis and her worsening renal failure, the daughter decided to extubate the patient and discontinue all life support measures including pressors. Following her extubation, patient's vital signs appeared stable and after approximately an hour, patient was transferred to the inpatient hospice care facility. She was stable for discharge at that time-prognosis was poor Physical exam: Vitals: Blood pressure 85/47, respirations 13, pulse 76, temperature 100.7 General: No apparent distress, Well developed, Well nourished, - - Patient is comatose at this time HEENT: Atraumatic, Normocephalic Neck: Trachea Midline, Thyroid Normal Size and Texture Lungs: Clear to auscultation, Normal air movement, No rhonchi, No wheeze, No rales Cardiovascular: Regular rate, Regular Rhythm, Normal S1, Normal S2, No murmurs, No Ectopic Activity, PMI Normal, No rub noted, No Gallop Abdomen: Bowel Sounds Present, Soft, Non Tender, Non-Distended Extremities: No edema Skin: No rashes, No breakdown Neurological: Cranial nerves II-XII grossly intact Psych/Mental Status: - - Patient is comatose at this time - Physical Exam Vital Signs Temp Pulse Resp BP Pulse Ox 100.7 F H 76 13 85/47 L 100 01/25/18 18:55 01/25/18 18:55 10 18:55 10 18:55 01/25/18 18:55 Oxygen Flow Rate (L/min) 2 Oxygen Delivery Method Nasal Cannula Weight: 71.4 kg Body Mass Index (BMI) 23.9 Finger Stick Blood Glucose 122 Microbiology Past 72 Hours 01/22/18 21:45 Blood Culture - Final Blood Culture (Wb) - Right Hand No growth in 5 days. 01/22/18 21:25 Blood Culture - Final Blood Culture (Wb) - Venous No growth in 5 days. 01/24/18 18:50 Blood Culture - Preliminary Blood Culture (Wb) - Left Forearm No growth in 48 hours. 01/24/18 18:00 Blood Culture - Preliminary Blood Culture (Wb) - Central Line No growth in 48 hours. 01/23/18 09:05 Gram Stain - Final Sputum, Induced/Lukens Respiratory Culture - Final Presumptive C albicans Mixed Brynn 01/22/18 21:50 Urine Culture - Final Urine Catheter - Oliva Culture exhibits no growth. Home Medications: Medications to take at Discharge Aspirin [Aspirin, Baby] 81 mg PO QHS 04/23/14 Humalog U- 100 Insulin 100 unit/mL subcutaneous solution See Rx Instructions SC .COMPLEX #20 ml NS 11/26/17 Lantus U- 100 Insulin 100 unit/mL subcutaneous solution 20 unit SC QHS #10 ml NS 11/26/17 enalapril maleate 20 mg tablet 20 mg PO QHS #30 tab 11/26/17 Simvastatin 80 mg PO QHS 01/22/18 Primary Care Physician: Tyrone Monreo MD [Primary Care Provider] - Disposition: Hospice Medical Facility Minutes spent on discharge:: 35 Patient Condition:: Stable Medical Necessity - Tobacco Use Smoking Status: Never smoker Tobacco Use: Non-smoker Meaningful Use Info Meaningful Use Diagnoses (Choose all that apply): None applicable Code Visit Inpatient E&M: 38411 Disch Hosp
== END 2018-01-25 18:55 | disposition hospice, inpatient (51) | DRG 208 ==
LOC: ED 19:05 → ICU 19:30
PROVIDERS: Emergency Medicine; Family Medicine; Internal Medicine Critical Care Medicine; Emergency Provider Emergency Medicine; Family Provider Family Medicine; PCP Family Medicine; Visit Provider Internal Medicine
DX: J96.01 Acute respiratory failure with hypoxia (principal); E10.10 Type 1 diabetes mellitus with ketoacidosis without coma; G93.41 Metabolic encephalopathy; N17.0 Acute kidney failure with tubular necrosis; A41.9 Sepsis, unspecified organism; R65.21 Severe sepsis with septic shock; K72.01 Acute and subacute hepatic failure with coma; M62.82 Rhabdomyolysis; I24.8 Other forms of acute ischemic heart disease; R68.0 Hypothermia, not associated with low environmental temperature; Z79.4 Long term (current) use of insulin; E87.5 Hyperkalemia; J32.0 Chronic maxillary sinusitis; Z66 Do not resuscitate; Z88.0 Allergy status to penicillin; Z51.5 Encounter for palliative care; B97.89 Other viral agents as the cause of diseases classified elsewhere; J06.9 Acute upper respiratory infection, unspecified
CPT/HCPCS: 31500; 31720; 36556; 36600; 51702; 70450; 71045; 80048; 80053; 80202; 81001; 82009; 82550; 82803; 82947; 82962; 83036; 83605; 83735; 84443; 84478; 84484; 85025; 85027; 85379; 85384; 85610; 87040; 87070; 87086; 87205; 87633; 87641; 93005; 93308; 94002; 94003; 94640; 94770; 97802; 97803; 99251; 99285; J2185; J7030; J7120; A4216; C1751; G0463; J3490

== ENCOUNTER → 2018-04-21 12:09 | Outpatient (CLI) | payer MEDICARE, OTHER, SELFPAY ==
[2018-04-21 11:18] VITALS: BMI 24.0
[2018-04-21 13:06] LABS: Microalbumin,Random Urine 19.3 mg/L (NO RANGE EST.); Microalbumin:Creatinine Ratio 29.5 mg/g CRE (<30 mg/g CRE)
[2018-04-21 13:31] LABS: Hemoglobin A1c 9.4 % (4.2-6.3)
[2018-04-21 13:35] LABS: ALB/GLOB Ratio 0.9 RATIO (0.9-2.4); AST(SGOT) 21 U/L (15-37); Alanine Aminotransfer ALT/SGPT 26 U/L (13-56); Albumin, Serum 3.6 g/dL (3.2-5.0); Alkaline Phosphatase 68 U/L (45-117); Anion Gap 10 (5-15); BUN 27 mg/dL (7-18); Calcium,Total 9.4 mg/dL (8.5-10.1); Chloride 107 mmol/L (98-107); Creatinine, Serum 1.08 mg/dL (0.55-1.02); EST Glomerular Filtration Rate 53 mL/min (>60); Est Glom Filt Rate - Afr Amer 64 mL/min (>60); Globulin 3.8 g/dL (2.2-4.2); Glucose 151 mg/dL (74-106); Protein, Total 7.4 g/dL (6.4-8.2); Sodium Level 140 mmol/L (136-145)
== END ==
PROVIDERS: Family Provider Family Medicine; PCP Family Medicine; Referring Provider Nurse Practitioner; Visit Provider Nurse Practitioner
DX: E10.9 Type 1 diabetes mellitus without complications (principal); E11.9 Type 2 diabetes mellitus without complications
CPT/HCPCS: 36415; 80053; 82043; 82570; 83036

== ENCOUNTER 2018-06-17 01:27 | Emergency (ER) | payer MEDICARE, OTHER, SELFPAY ==
[2018-04-21 11:18] VITALS: BMI 24.0
[2018-06-17 01:29] VITALS: BP 140/99; PULSE 87; RESP 18; TEMP 36.6; O2SAT 100; BMI 27.3
--- NOTE | 2018-06-17 01:37 | ED.VIS.GEN ---
History of Present Illness Chief Complaint: Hypoglycemia Informant: Patient Onset: Hours Context: - - awoke suddenly, feeling bad Timing: Continuous Quality: felt bad and a little shaky Location: all over Current Severity: gone Maximum Severity: Moderate Worsened by: nothing Relieved by: after eating Associated Symptoms: none Narrative: Woke up and felt bad, like her sugar was low. She checked it and it was 57. She then had something to eat and drink, gradually started improving later, but she had already called EMS. When they checked her sugar it was just over 100 they gave her more oral glucose, and checked it again, 137. Patient states she has had no recent illnesses. She is on Lantus and NovoLog and no other medications, the Lantus is twice daily and the NovoLog is sliding scale, she last used both of these around 4-5 hours ago. States that she felt like she ate well for dinner. Does not think she injected any extra insulin on accident. - Past Medical History (1) Diabetes type I Status: Chronic (2) Dyslipidemia Status: Chronic Past Medical History - Allergies and Home Meds Allergies/Adverse Reactions: Allergies Iodinated Contrast- Oral and IV Dye [Iodinated Contrast Media - IV Dye] Allergy (Mild, Verified 06/17/18 01:29) Rash face/chest very red Penicillins Allergy (Unknown, Verified 06/17/18 01:29) mother told her she was allergic mother told her she was allergic Sulfa (Sulfonamide Antibiotics) Allergy (Unknown, Verified 06/17/18 01:29) mother told her she was allergic mother told her she was allergic Primary Care Physician: Tyrone Monroe MD [Primary Care Provider] - Surgical History: hysterectomy Smoking Status: Never smoker - Family History Maternal Family History: Family History (Last Reviewed 04/21/18 @ 11:17 by Adwoa Prather) Mother Diabetes Heart disease Family History: Reports: Diabetes Review of Systems General: Reports: Malaise. Denies: Chills, Fever, Sweats Eyes: Denies: Visual changes - bilaterally, Diplopia ENT: Denies: Rhinorrhea, Sore throat Cardiovascular: Denies: Chest pain, Palpitations Respiratory: Denies: Dyspnea, Cough, Dyspnea on exertion Gastrointestinal: Denies: Abdominal pain, Nausea, Vomiting, Diarrhea, Melena, Hematochezia Genitourinary: Denies: Dysuria, Hematuria, Frequency Musculoskeletal: Denies: Back pain, Extremity Pain Skin: Denies: Rash, Wounds Neurological: Reports: - - Off and on chronic right upper extremity tremor. Denies: Headache, Weakness, Numbness Physical Exam Vital Signs/Narrative: Vital Signs Temp Pulse Resp BP Pulse Ox 06/17/18 01:29 97.9 F 87 18 140/99 H 100 Inital Vital Signs reviewed: Yes General: Well nourished, Well developed, No Acute Distress Head: Normocephalic, Atraumatic Eyes: Perrl, EOMI ENT: Moist mucous membranes, No rhinorrhea Neck: Supple, Nontender Cardiovascular: Regular rate, Regular rhythm, No murmurs Respiratory: No distress, CTA bilaterally, Chest nontender Abdomen: Soft, Nontender, Nondistended, Normal bowel sounds Back: Nontender, Normal Inspection Extremities: Nontender, No edema Skin: Normal color, No rash Neurological: Alert, Oriented x3, Cranial nerves II-XII grossly intact, Normal Strength, Normal Sensation, - - Resting tremor right upper extremity. Patient able to occasionally suppress for a minute or so. Psychological: Normal affect, Normal Mood Diagnostic/Tx/Re-eval - Medical Decision Making Patient was observed and given a sandwich. On recheck her sugar is over 200 and she feels fine. I do not think she needs further testing. On further history, she went through what she ate and how she does to herself, and it seems that she made a miscalculation. Advised that in the nighttime she would be better underdosing than overdosing on accident. Advised to follow-up with her doctor if she has persistent issues. She is comfortable with discharge and this plan. ED Disposition - Plan for ED Patient: Disposition: Home or Assisted Living Diagnosis: Hypoglycemia due to insulin Instructions: ED Diabetes Hypoglycemia Insulin React Referrals: Tyrone Monroe MD [Primary Care Provider] - As Needed
--- NOTE | 2018-06-17 02:21 | ED.RN ---
PATIENT HAD A COUPLE BITES OF A SANDWICH AND SOME YOGURT. SHE IS FEELING BETTER NOW AND HER CURRENT BG IS 268.
[2018-06-17 02:25] LABS: Bedside Glucose 268 mg/dL (70-110)
[2018-06-17 02:36] VITALS: BP 150/71; PULSE 96; RESP 18; O2SAT 98
== END 2018-06-17 02:52 | disposition home or self-care (01) ==
PROVIDERS: Emergency Provider Emergency Medicine; Family Provider Family Medicine; PCP Family Medicine
DX: E10.649 Type 1 diabetes mellitus with hypoglycemia without coma (principal); E78.5 Hyperlipidemia, unspecified; Z79.4 Long term (current) use of insulin
CPT/HCPCS: 82962; 99284; A4216

== ENCOUNTER → 2018-10-22 | Outpatient (CLI) | payer MEDICARE, OTHER, SELFPAY ==
[2018-10-22 07:38] VITALS: BMI 26.2
--- NOTE | 2018-10-22 07:45 | LES_PTH ---
PATIENT: CONRADO KING LOC: [facility] U#:[id number] AGE/SX: 73/F ROOM: RE10/22/[address]: Dr. Sundar Chatman MD : [id number] BED: DIS: 10/22/2018 SPEC #: [id number] RECD: 10/22/18 08:28 STATUS: JERARDO REClark #: [id number] ISAAK: 10/22/18 07:[address]: Sundar Chatman DEPT: SURGICAL PATHOLOGY RECD BY: Fermín Gerard ENTERED: 10/22/18 15:00 SP TYPE: Lesion OTHR DR: Dr. Tyrone Monroe MD Tissues: Skin of neck, NOS Procedures: Surgery Specimen Level IV HEADER OPERATION: Excision skin lesion left neck PRE-OP DIAGNOSIS: Pigmented skin lesion TISSUE SUBMITTED: Skin lesion left neck MICROSCOPIC DIAGNOSIS Skin lesion of left neck, biopsy: Sub epidermal abscess formation with associated histiocytic reaction. Rare keratin debris. Epidermal inclusion cyst. See comment. AM:miriam 10/25/18 COMMENT The findings are consistent with ruptured epidermal inclusion cyst and associated reparative/reactive change and inflammation. MICROSCOPIC DESCRIPTION Slides are reviewed. GROSS DESCRIPTION Received in fixative is one container labeled with the patient's name and designated skin lesion left neck. The specimen consists of an ellipse of light houser excised skin measuring 2.5 x 1.2 cm and depth of excision measuring 1.5 cm. The cutaneous surface contains a light houser plaque-like lesion measuring 1 x 0.5 cm. The specimen is inked, serially sectioned and totally submitted in two cassettes. / AM:miriam 10/22/18 TC:2 CPT: 38611
== END | disposition home or self-care (01) ==
LOC: LABSPEC 09:51
PROVIDERS: Family Provider Family Medicine; PCP Family Medicine; Referring Provider Surgery; Visit Provider Surgery
DX: L02.11 Cutaneous abscess of neck (principal); L72.0 Epidermal cyst
CPT/HCPCS: 88305

== ENCOUNTER → 2018-12-21 | Outpatient (CLI) | payer MEDICARE, OTHER, SELFPAY ==
[2018-10-29 08:08] VITALS: BMI 26.2
[2018-12-21 08:54] LABS: ALB/GLOB Ratio 0.9 RATIO (0.9-2.4); AST(SGOT) 20 U/L (15-37); Alanine Aminotransfer ALT/SGPT 26 U/L (13-56); Albumin, Serum 3.4 g/dL (3.2-5.0); Alkaline Phosphatase 83 U/L (45-117); Anion Gap 6 (5-15); BUN 26 mg/dL (7-18); BUN/Creat Ratio 25.2 RATIO (10-20); Calcium,Total 9.1 mg/dL (8.5-10.1); Chloride 109 mmol/L (98-107); Cholesterol 274 mg/dL (200); Creatinine, Serum 1.03 mg/dL (0.55-1.02); EST Glomerular Filtration Rate 56 mL/min (>60); Est Glom Filt Rate - Afr Amer 68 mL/min (>60); Globulin 3.8 g/dL (2.2-4.2); Glucose 141 mg/dL (74-106); High Density Lipoprotein 82 mg/dL; Potassium 3.9 mmol/L (3.5-5.1); Protein, Total 7.2 g/dL (6.4-8.2); Sodium Level 141 mmol/L (136-145); Triglycerides 87 mg/dL; Very Low Density Lipoprotein 17 mg/dL (5-40)
== END | disposition home or self-care (01) ==
LOC: LAB 07:29
PROVIDERS: Family Provider Family Medicine; PCP Family Medicine; Referring Provider Nurse Practitioner; Visit Provider Nurse Practitioner
DX: E11.9 Type 2 diabetes mellitus without complications (principal)
CPT/HCPCS: 36415; 80053; 80061

== ENCOUNTER → 2019-03-25 08:55 | Outpatient (CLI) | payer MEDICARE, OTHER, SELFPAY ==
[2018-10-29 08:08] VITALS: BMI 26.2
[2019-03-25 10:38] LABS: Hemoglobin A1c 11.7 % (4.2-6.3)
[2019-03-25 10:40] LABS: Microalbumin,Random Urine 19.5 mg/L (NO RANGE EST.)
[2019-03-25 10:56] LABS: ALB/GLOB Ratio 0.9 RATIO (0.9-2.4); AST(SGOT) 15 U/L (15-37); Alanine Aminotransfer ALT/SGPT 24 U/L (13-56); Albumin, Serum 3.3 g/dL (3.2-5.0); Alkaline Phosphatase 102 U/L (45-117); Anion Gap 6 (5-15); BUN 23 mg/dL (7-18); BUN/Creat Ratio 21.5 RATIO (10-20); Chloride 104 mmol/L (98-107); Cholesterol 280 mg/dL (200); Creatinine, Serum 1.07 mg/dL (0.55-1.02); EST Glomerular Filtration Rate 53 mL/min (>60); Est Glom Filt Rate - Afr Amer 65 mL/min (>60); Globulin 3.8 g/dL (2.2-4.2); Glucose 260 mg/dL (74-106); High Density Lipoprotein 81 mg/dL; Potassium 4.3 mmol/L (3.5-5.1); Protein, Total 7.1 g/dL (6.4-8.2); Sodium Level 136 mmol/L (136-145); Triglycerides 128 mg/dL; Very Low Density Lipoprotein 26 mg/dL (5-40)
== END ==
PROVIDERS: Family Provider Family Medicine; PCP Family Medicine; Referring Provider Nurse Practitioner; Visit Provider Nurse Practitioner
DX: E10.9 Type 1 diabetes mellitus without complications (principal)
CPT/HCPCS: 36415; 80053; 80061; 82043; 83036

== ENCOUNTER 2019-10-07 09:49 | Emergency (ER) | payer MEDICARE, OTHER, SELFPAY ==
[2019-09-29 11:05] VITALS: BMI 26.2
[2019-10-07 09:50] VITALS: BP 145/87; PULSE 105; RESP 18; TEMP 36.6; O2SAT 100; BMI 29.8
--- NOTE | 2019-10-07 10:13 | EKG12_ITS ---
Test Reason : DYSRHYTHMIA Blood Pressure : / mmHG Vent. Rate : 098 BPM Atrial Rate : 098 BPM P-R Int : 154 ms QRS Dur : 068 ms QT Int : 340 ms P-R-T Axes : 069 071 081 degrees QTc Int : 434 ms Normal sinus rhythm Septal infarct , age undetermined Abnormal ECG Confirmed by DAMARI HANDY, QIAN ([id number]), electronic news gathering editor JULIO CESAR CALL ([id number]) on 10/11/2019 10:48:30 AM Referred By: SHANKAR Confirmed By:QIAN WETZEL MD
--- NOTE | 2019-10-07 10:19 | ED.VISSUMM ---
- ER Visit Summary Date of Service: 10/07/19 Chief Complaint: High blood sugar History of Present Illness: The patient is a [address] Tyrone Monroe. She had seen TERI mcpherson in the past for her diabetes. She had a first visit with Dr. Jake Penn September 28. She had changes made in her insulin regimen as her A1c at that time was 13.1. Patient reports that her blood sugar has been elevated for the past 2 days. It has been between 402 - too high to register on her machine. She contacted Dr. Penn's office yesterday and had an increase in her sliding scale Humalog. Despite this her blood sugar read high this morning and she took 16 units of insulin at 8 AM. Review of systems: General: No fever, chills, cold sweats. Cardiovascular: No chest pain, palpitations. Respiratory: No cough, shortness of breath, dyspnea on exertion. Gastrointestinal: No abdominal pain, nausea, vomiting, diarrhea, melena, or hematochezia. Genitourinary: No dysuria, frequency, hematuria. Skin: No rash. Neuro: No headache, numbness, weakness. Physical Examination: Vitals: Stable. Afebrile. General: Well-nourished and well-developed. Head: Normocephalic atraumatic. Neck: Supple, no lymphadenopathy. No JVD. Nontender. Cardiovascular: Tachycardic regular rhythm. No murmurs. Respiratory: No respiratory distress. Clear to auscultation bilaterally. Abdominal: Soft, nontender, nondistended, normal bowel sounds. No guarding, rebound, or peritoneal signs. Back: Nontender. Extremities: Nontender, no edema. Skin: Normal color, no rash. Neurologic: Alert and oriented ?3. Cranial nerves II through XII are intact. Normal strength and sensation. Psych: Anxious. Test Results: EKG is sinus at [address] changes. Is unchanged from 2016. Troponin is negative. Chem-7 shows a sodium 134, CO2 25, anion gap of 8, glucose of 428, BUN 27, creatinine 1.3. CBC shows segmented neutrophils 73. Phosphorus and magnesium are normal. Venous blood gas shows a pH of 7.414. UA does show UTI with 25-50 white blood cells and 1+ bacteria. Emergency Department Course and Treatment: Patient had an IV placed. She was given a liter of normal saline. She is resting comfortably. Urine was sent for culture and she was given a dose of Rocephin IV. She also had a repeat Accu-Chek that is 304. Her A1c of 13.1 shows that on average her blood sugars been 326 over the past 3 months. Treatment Plan: Patient was discussed with Dr. Penn, her insole department worker, who is concerned the patient has dementia. Because of this case management was consulted. They have seen and discussed this with the patient. She is clearly forgetful and probably does have early dementia, but she is able to care for herself at home. They also spoke with the patient's daughter who is a nurse who is okay with her going home as well. Patient will be discharged with Keflex and instructed to continue her new insulin regimen. Follow-up with Dr. Penn in 1 week for another exam. Follow-up with Dr. Hallman within 3 to 5 days. Return to the emergency department for any worsening symptoms. Disposition: To home in improved and stable condition. Impression: 1. Hyperglycemia. 2. Type 1 diabetes mellitus. 3. UTI. This note was generated with [employer] software. It may contain incorrect words, spelling, and punctuation that were not noted in review of the chart prior to signing ED Disposition - Plan for ED Patient: Instructions: ED Diabetic Hyperglycemia Prescriptions: Cephalexin [Keflex] 500 mg PO Q12 #14 capsule Referrals: Tyrone Monroe MD [Primary Care Provider] - 3-5 Days Bacilio Penn MD [STAFF PHYSICIAN] - 1 Week
[2019-10-07 10:30] LABS: Bedside Glucose 414 mg/dL (70-110)
[2019-10-07] MEDS: 0.9% Normal Saline 1,000 ML 999 ML IV (10:35)
[2019-10-07 10:37] LABS: Absolute Lymphocyte Count 1.09 X10^3/uL (0.83-4.51); Absolute Neutrophil Count 4.1 X10^3/uL (2.0-7.7); Basophil# 0.04 X10^3/uL; Basophil% 0.7 % (0-1); Eosinophil# 0.09 X10^3/uL; Eosinophils% 1.6 % (0-5); Hemoglobin 13.7 g/dL (12.0-15.0); Lymphocyte # 1.09 X10^3/ul (4.0); Lymphocyte % 19.4 % (19-41); Mean Corp Hgb Conc 33.4 g/dL (32-36); Mean Corpuscular Hgb 30.2 pg (27.0-32.0); Mean Corpuscular Volume 90.5 fL (81-99); Mean Platelet Vol. 9.5 fl (6.2-12.0); Monocyte# 0.28 X10^3/uL; NRBC Flagged by Analyzer 0 % (0-5); Neutrophil # 4.11 X10^3/uL (2.7-7.7); Neutrophil % 72.9 % (47-70); Platelet Count 326 K/mm3 (150-450); RBC Distribution Width CV 13.3 % (11.6-14.6); RBC Distribution Width SD 44.5 fl (35.1-43.9); Red Blood Count 4.53 M/mm3 (4.2-5.4); White Blood Count 5.6 K/mm3 (4.4-11.0)
[2019-10-07 10:48] LABS: Mucous, Urine 0 SEEN /hpf (<or=2+)
[2019-10-07 10:55] LABS: Anion Gap 8 (5-15); BUN 27 mg/dL (7-18); BUN/Creat Ratio 19.6 RATIO (10-20); Chloride 101 mmol/L (98-107); Creatinine, Serum 1.38 mg/dL (0.55-1.02); EST Glomerular Filtration Rate 40 mL/min (>60); Est Glom Filt Rate - Afr Amer 48 mL/min (>60); Estimated Creatinine Clearance 28.29 ml/min; Glucose 428 mg/dL (74-106); Magnesium 2.1 mg/dL (1.6-2.6); Phosphorus 2.4 mg/dL (2.5-4.9); Potassium 4.4 mmol/L (3.5-5.1); Sodium Level 134 mmol/L (136-145)
[2019-10-07 11:01] LABS: Color, Urine Yellow (Yellow); Glucose, Dipstick 1000 mg/dl (Normal); Ketone-Dipstick 50 mg/dl (Negative); Leukocyte Esterase-Dipstick 500 /ul (Negative); Nitrite-Dipstick Negative (Negative); Occult Blood-Urine 25 /ul (Negative); Protein-Dipstick Negative (Negative); Urine Bilirubin Dipstick Negative (Negative); Urine Clarity Sl. Cloudy (Clear); Urine Urobilinogen Normal (Normal)
[2019-10-07 11:07] LABS: Bacteria 1+ /hpf (None Seen); Red Blood Cells-Urine 0-5 SEEN /hpf (0-5); Squamous Epithelial Cells - UA 0-5 SEEN /hpf (5-10); White Blood Cells 25-50 SEEN /hpf (0-5)
[2019-10-07 11:18] LABS: Blood Gas Specimen Type VEN; O2 Delivery Device Room Air; SITE OTHER; Time Given 1046; VBG BASE EXCESS -1 mmol/L (-1.0-3.5); VBG Bicarbonate 24 mmol/L (22-26); VBG PO2 25 mmHg (25-40); VBG pCO2 37.2 mmHg (41-51); VBG pH 7.41 (7.32-7.42)
[2019-10-07 11:19] LABS: VBG SO2 46 % (50-70)
[2019-10-07] MEDS: Ceftriaxone 1 GM/50 ML BAG IV (11:51)
[2019-10-07 12:30] VITALS: BP 145/68; PULSE 90; RESP 20; O2SAT 100
--- NOTE | 2019-10-07 13:00 | CM.ED ---
Social Work Consult: Resources Informant: Dr. Issa Chief Complaint: Hyperglycemia. Marital/Social History: . Has two adult children. A son that lives in [place] and daughter, Wen that lives local. Wen is patient Health Care Power of title attorney. Patient thought that the documents were on file. After further chart review it is noted that Advanced Directives are not on file for patient. Living Situation: Patient lives alone in a two story home with 13 steps to get to bedroom. Patient reports to be independent in the home and community. Patient does not use any DME and does not have a medical alert system. Patient states to drive self and manage all medications. Patient primary pharmacy is [facility] in [place]. Supports/Resources; Patient identifies daughterWen as main support for patient in the community. Denies any home health services or supports. Mental Health Treatment/History: Denies Abuse Issues: Denies Substance Abuse: Denies Risk to Self/Others: Denies any suicidal thoughts, plans, intents. Denies any thoughts, plans, intents to hurt others. Assessment: Met with patient in room. Introduced self as well as social science instructor role. Patient agreeable to speaking with this social science instructor. Patient states to have no concerns on returning to home. Patient aware of concern of patient high blood sugar. Patient states to have all the education that patient needs on diabetes and managing diabetes in the home. Patient denies any cognitive deficits or concerns. Patient agreeable to this social science instructor speaking with patient daughter. This social science instructor broached topic of medical alert system for patient, patient declining this referral. Telephone call to patient daughterWen. Wen states concern with patient managing diabetes in the home appropriately. Wen states to be a nurse and is able to observe patient giving own insulin and medications. Wen plans to stop by patient home three times a day for the next few days to assess patient's compliance with medications. Wen states that patient appears to need more guidance. This social science instructor also encouraging patient to contact patient doctors regards to recent changes in patient insulin per Wen's report. Collaborating with Dr. Issa. Dr. Issa updated on above assessment and plans for patient to return to home with further follow up with Dr. 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 Winston Cheung MSW, [facility]ERT[facility]
[2019-10-07 13:11] LABS: Bedside Glucose 304 mg/dL (70-110)
[2019-10-07 13:28] VITALS: BP 155/70; PULSE 95; RESP 18; O2SAT 99
== END 2019-10-07 13:28 | disposition home or self-care (01) ==
LOC: ED 11:00
PROVIDERS: Emergency Provider Emergency Medicine; PCP Family Medicine
DX: E10.65 Type 1 diabetes mellitus with hyperglycemia (principal); N39.0 Urinary tract infection, site not specified; Z79.4 Long term (current) use of insulin; E78.00 Pure hypercholesterolemia, unspecified
CPT/HCPCS: 80048; 81001; 82009; 82803; 82962; 83735; 84100; 84484; 85025; 87077; 87086; 87088; 87186; 93005; 96361; 96365; 99285; J7030; A4216

== ENCOUNTER → 2019-11-22 | Outpatient (CLI) | payer MEDICARE, OTHER, SELFPAY ==
--- NOTE | 2019-11-22 | ABS_PTH ---
PATIENT: CONRADO KING LOC: [facility] U#:[id number] AGE/SX: 74/F ROOM: RE11/22/[address]: Dr. Андрей Fleming MD : 1945 BED: DIS: 11/22/2019 SPEC #: [id number] RECD: 11/22/19 16:35 STATUS: JERARDO LOLITA #: [id number] ISAAK: 11/22/19 00:[address]: Андрей Fleming DEPT: SURGICAL PATHOLOGY RECD BY: Flash Herndon ENTERED: 11/23/19 09:04 SP TYPE: Abscess OTHR DR: Dr. Tyrone Monroe MD Tissues: Chest wall, NOS Procedures: Special Stain Group I Surgery Specimen Level III AFB Stain (control) GMS Stain (control) HEADER OPERATION: Incision and drainage of left chest abscess PRE-OP DIAGNOSIS: Abscess of chest TISSUE SUBMITTED: Left chest abscess tissue MICROSCOPIC DIAGNOSIS Left chest abscess tissue: A piece of skin with underlying tissue with acute and chronic inflammation and abscess formation and fragments of keratinous material. Special stains for acid fast bacilli and fungi are negative for organisms; matched controls are appropriate. SJ:miriam 11/24/19 MICROSCOPIC DESCRIPTION Slides are reviewed. GROSS DESCRIPTION Received in fixative is one container labeled with the patient's name and designated left chest abscess. The specimen consists of two irregular fragments of houser tissue that in aggregate measure 2 x 0.7 x 0.5 cm. The largest fragment is bisected and submitted along with the smaller fragment in one cassette. / AM:miriam 11/23/19 TC:2 CPT: 87171, 00270 x2
[2019-11-22 14:14] VITALS: BMI 29.8
== END | disposition home or self-care (01) ==
PROVIDERS: PCP Family Medicine; Referring Provider Surgery; Visit Provider Surgery
DX: J86.9 Pyothorax without fistula (principal)
CPT/HCPCS: 87070; 87075; 87077; 87186; 87205; 88304; 88312

== ENCOUNTER → 2020-04-23 10:45 | Outpatient (CLI) | payer MEDICARE, OTHER, SELFPAY ==
[2020-04-23 10:33] VITALS: BMI 27.4
[2020-04-23 12:53] LABS: Vitamin D,25 Hydroxy 23.5 ng/mL
[2020-04-23 13:05] LABS: AST(SGOT) 36 U/L (15-37); Alanine Aminotransfer ALT/SGPT 55 U/L (13-56); Albumin, Serum 3.4 g/dL (3.2-5.0); Alkaline Phosphatase 120 U/L (45-117); Anion Gap 6 (5-15); BUN 20 mg/dL (7-18); BUN/Creat Ratio 20.9 RATIO (10-20); Calcium,Total 9.5 mg/dL (8.5-10.1); Chloride 107 mmol/L (98-107); Cholesterol 187 mg/dL (200); Creatinine, Serum 0.96 mg/dL (0.55-1.02); EST Glomerular Filtration Rate 60 mL/min (>60); Est Glom Filt Rate - Afr Amer 73 mL/min (>60); Globulin 3.4 g/dL (2.2-4.2); Glucose 207 mg/dL (74-106); High Density Lipoprotein 91 mg/dL; Potassium 4.5 mmol/L (3.5-5.1); Protein, Total 6.8 g/dL (6.4-8.2); Sodium Level 139 mmol/L (136-145); Thyroid Stim Hormone (TSH) 1.49 uIU/mL (0.358-3.74); Triglycerides 72 mg/dL; Very Low Density Lipoprotein 14 mg/dL (5-40)
[2020-04-23 13:15] LABS: Microalbumin,Random Urine 55.2 mg/L (NO RANGE EST.); Microalbumin:Creatinine Ratio 64.6 mg/g CRE (<30 mg/g CRE)
== END ==
PROVIDERS: PCP Family Medicine; Referring Provider Internal Medicine Endocrinology, Diabetes & Metabolism; Visit Provider Internal Medicine Endocrinology, Diabetes & Metabolism
DX: E78.2 Mixed hyperlipidemia (principal); E13.10 Other specified diabetes mellitus with ketoacidosis without coma; J96.90 Respiratory failure, unspecified, unspecified whether with hypoxia or hypercapnia; E55.9 Vitamin D deficiency, unspecified
CPT/HCPCS: 36415; 80053; 80061; 82043; 82306; 82570; 84443

== ENCOUNTER 2021-06-03 09:21 | Outpatient (CLI) | payer MEDICARE, OTHER, SELFPAY ==
[2021-06-03 12:29] LABS: Vitamin D,25 Hydroxy 34.1 ng/mL
[2021-06-03 12:48] LABS: ALB/GLOB Ratio 1.1 RATIO (0.9-2.4); AST(SGOT) 26 U/L (15-37); Alanine Aminotransfer ALT/SGPT 35 U/L (13-56); Albumin, Serum 3.6 g/dL (3.2-5.0); Alkaline Phosphatase 100 U/L (45-117); Anion Gap 6 (5-15); BUN 17 mg/dL (7-18); BUN/Creat Ratio 16.8 RATIO (10-20); Calcium,Total 9.7 mg/dL (8.5-10.1); Chloride 108 mmol/L (98-107); Cholesterol 182 mg/dL (200); Creatinine, Serum 1.01 mg/dL (0.55-1.02); EST Glomerular Filtration Rate 57 mL/min (>60); Est Glom Filt Rate - Afr Amer 69 mL/min (>60); Globulin 3.3 g/dL (2.2-4.2); Glucose 101 mg/dL (74-106); High Density Lipoprotein 79 mg/dL; Potassium 4.4 mmol/L (3.5-5.1); Protein, Total 6.9 g/dL (6.4-8.2); Sodium Level 139 mmol/L (136-145); Thyroid Stim Hormone (TSH) 1.45 uIU/mL (0.358-3.74); Triglycerides 75 mg/dL; Very Low Density Lipoprotein 15 mg/dL (5-40)
== END 2021-06-03 23:59 | disposition home or self-care (01) ==
LOC: BIMLAB 09:22
PROVIDERS: PCP Family Medicine; Referring Provider Internal Medicine Endocrinology, Diabetes & Metabolism; Visit Provider Internal Medicine Endocrinology, Diabetes & Metabolism
DX: E10.21 Type 1 diabetes mellitus with diabetic nephropathy (principal); E10.22 Type 1 diabetes mellitus with diabetic chronic kidney disease; N18.31 Chronic kidney disease, stage 3a; E78.2 Mixed hyperlipidemia; E66.3 Overweight; E55.9 Vitamin D deficiency, unspecified
CPT/HCPCS: 36415; 80053; 80061; 82306; 84443

== ENCOUNTER → 2022-05-22 | Outpatient (CLI) | payer MEDICARE, OTHER, SELFPAY ==
[2022-05-22 12:03] LABS: ALB/GLOB Ratio 0.8 RATIO (0.9-2.4); AST(SGOT) 23 U/L (15-37); Alanine Aminotransfer ALT/SGPT 27 U/L (13-56); Albumin, Serum 3.3 g/dL (3.2-5.0); Alkaline Phosphatase 116 U/L (45-117); Anion Gap 6 (5-15); BUN 27 mg/dL (7-18); BUN/Creat Ratio 26.2 RATIO (10-20); Calcium,Total 9.6 mg/dL (8.5-10.1); Chloride 106 mmol/L (98-107); Cholesterol 178 mg/dL (200); Creatinine, Serum 1.03 mg/dL (0.55-1.02); EST Glomerular Filtration Rate 55 mL/min (>60); Est Glom Filt Rate - Afr Amer 67 mL/min (>60); Globulin 4.2 g/dL (2.2-4.2); Glucose 120 mg/dL (74-106); High Density Lipoprotein 74 mg/dL; Protein, Total 7.5 g/dL (6.4-8.2); Sodium Level 140 mmol/L (136-145); Triglycerides 64 mg/dL; Very Low Density Lipoprotein 13 mg/dL (5-40)
[2022-05-22 14:12] LABS: Microalbumin:Creatinine Ratio 80.8 mg/g CRE (<30 mg/g CRE)
[2022-05-22 14:31] LABS: Vitamin D,25 Hydroxy 42.6 ng/mL
== END | disposition home or self-care (01) ==
LOC: LAB 11:03
PROVIDERS: PCP Family Medicine; Referring Provider Internal Medicine Endocrinology, Diabetes & Metabolism; Visit Provider Internal Medicine Endocrinology, Diabetes & Metabolism
DX: E78.5 Hyperlipidemia, unspecified (principal); E10.21 Type 1 diabetes mellitus with diabetic nephropathy; E10.22 Type 1 diabetes mellitus with diabetic chronic kidney disease; N18.31 Chronic kidney disease, stage 3a; E55.9 Vitamin D deficiency, unspecified; I12.9 Hypertensive chronic kidney disease with stage 1 through stage 4 chronic kidney disease, or unspecified chronic kidney disease
CPT/HCPCS: 36415; 80053; 80061; 82043; 82306; 82570; 84443

== ENCOUNTER → 2023-01-30 | Outpatient (CLI) | payer MEDICARE, OTHER, SELFPAY ==
[2023-01-30 08:23] LABS: Vitamin D,25 Hydroxy 42.3 ng/mL
[2023-01-30 08:34] LABS: ALB/GLOB Ratio 0.9 RATIO (0.9-2.4); AST(SGOT) 27 U/L (15-37); Alanine Aminotransfer ALT/SGPT 38 U/L (13-56); Albumin, Serum 3.4 g/dL (3.2-5.0); Alkaline Phosphatase 91 U/L (45-117); Anion Gap 5 (5-15); BUN 28 mg/dL (7-18); BUN/Creat Ratio 26.2 RATIO (10-20); Calcium,Total 9.3 mg/dL (8.5-10.1); Chloride 107 mmol/L (98-107); Cholesterol 192 mg/dL (200); Creatinine, Serum 1.07 mg/dL (0.55-1.02); EST Glomerular Filtration Rate 53 mL/min (>60); Est Glom Filt Rate - Afr Amer 64 mL/min (>60); Globulin 3.8 g/dL (2.2-4.2); Glucose 116 mg/dL (74-106); High Density Lipoprotein 77 mg/dL; Protein, Total 7.2 g/dL (6.4-8.2); Sodium Level 139 mmol/L (136-145); Thyroid Stim Hormone (TSH) 1.83 uIU/mL (0.358-3.74); Triglycerides 63 mg/dL; Very Low Density Lipoprotein 13 mg/dL (5-40)
== END | disposition home or self-care (01) ==
LOC: LAB 07:25
PROVIDERS: PCP Nurse Practitioner Family; Referring Provider Internal Medicine Endocrinology, Diabetes & Metabolism; Visit Provider Internal Medicine Endocrinology, Diabetes & Metabolism
DX: E10.21 Type 1 diabetes mellitus with diabetic nephropathy (principal); E10.649 Type 1 diabetes mellitus with hypoglycemia without coma; E10.22 Type 1 diabetes mellitus with diabetic chronic kidney disease; N18.31 Chronic kidney disease, stage 3a; E55.9 Vitamin D deficiency, unspecified
CPT/HCPCS: 36415; 80053; 80061; 82306; 84439; 84443

== ENCOUNTER → 2024-05-07 | Outpatient (CLI) | payer MEDICARE, OTHER, SELFPAY ==
[2024-05-07 09:35] LABS: ALB/GLOB Ratio 1.1 RATIO (0.9-2.4); AST(SGOT) 20 U/L (15-37); Alanine Aminotransfer ALT/SGPT 24 U/L (13-56); Albumin, Serum 3.7 g/dL (3.2-5.0); Alkaline Phosphatase 95 U/L (45-117); Anion Gap 11 (5-15); BUN 34 mg/dL (7-18); BUN/Creat Ratio 21.2 RATIO (10-20); Calcium,Total 9.4 mg/dL (8.5-10.1); Chloride 101 mmol/L (98-107); Cholesterol 183 mg/dL (200); EST Glomerular Filtration Rate 33 mL/min (>60); Est Glom Filt Rate - Afr Amer 40 mL/min (>60); Globulin 3.5 g/dL (2.2-4.2); Glucose 378 mg/dL (74-106); High Density Lipoprotein 74 mg/dL; Potassium 4.1 mmol/L (3.5-5.1); Protein, Total 7.2 g/dL (6.4-8.2); Sodium Level 134 mmol/L (136-145); Triglycerides 90 mg/dL; Very Low Density Lipoprotein 18 mg/dL (5-40)
== END | disposition home or self-care (01) ==
LOC: LAB 08:11
PROVIDERS: PCP Nurse Practitioner Family; Referring Provider Internal Medicine Endocrinology, Diabetes & Metabolism; Visit Provider Internal Medicine Endocrinology, Diabetes & Metabolism
DX: E10.21 Type 1 diabetes mellitus with diabetic nephropathy (principal); E10.22 Type 1 diabetes mellitus with diabetic chronic kidney disease; E10.3 Type 1 diabetes mellitus with ophthalmic complications; N18.31 Chronic kidney disease, stage 3a; E78.2 Mixed hyperlipidemia; I12.9 Hypertensive chronic kidney disease with stage 1 through stage 4 chronic kidney disease, or unspecified chronic kidney disease; E55.9 Vitamin D deficiency, unspecified
CPT/HCPCS: 36415; 80053; 80061; 82306; 84443

== ENCOUNTER → 2024-06-20 | Outpatient (CLI) | payer MEDICARE, OTHER, SELFPAY ==
[2024-06-20 09:29] LABS: Anion Gap 12 (5-15); BUN 31 mg/dL (4-19); BUN/Creat Ratio 22.2 RATIO (10-20); Calcium 9.3 mg/dL (7.6-11.0); Carbon Dioxide 22.9 mmol/L (22.0-29.0); Chloride 100 mmol/L (96-108); Creatinine, Serum 1.39 mg/dL (0.70-1.20); EST Glomerular Filtration Rate 39 (>60); Glucose 280 mg/dL (70-99); Potassium 4.3 mmol/L (3.3-5.1); Sodium Level 135 mmol/L (133-145)
[2024-06-21 03:31] LABS: Pro- Brain NATRIURETIC PEPTIDE 40 pg/mL (<=1800)
== END | disposition home or self-care (01) ==
LOC: LAB 07:15
PROVIDERS: PCP Nurse Practitioner Family; Referring Provider Internal Medicine Endocrinology, Diabetes & Metabolism; Visit Provider Internal Medicine Endocrinology, Diabetes & Metabolism
DX: I10 Essential (primary) hypertension (principal); E10.21 Type 1 diabetes mellitus with diabetic nephropathy
CPT/HCPCS: 36415; 80048; 83880

== ENCOUNTER → 2024-10-11 | Outpatient (CLI) | payer MEDICARE, OTHER, SELFPAY ==
[2024-10-11 15:31] LABS: Bacteria 0 SEEN /hpf (None Seen); Mucous, Urine 0 SEEN /hpf (<or=2+)
[2024-10-11 16:48] LABS: Color, Urine Straw (Yellow); Glucose, Dipstick 250 mg/dl (Normal); Ketone-Dipstick Negative (Negative); Leukocyte Esterase-Dipstick 500 /ul (Negative); Nitrite-Dipstick Negative (Negative); Occult Blood-Urine 10 /ul (Negative); Protein-Dipstick 15 mg/dl (Negative); Urine Bilirubin Dipstick Negative (Negative); Urine Clarity Clear (Clear); Urine Urobilinogen Normal (Normal)
[2024-10-11 20:44] LABS: Red Blood Cells-Urine 0-5 SEEN /hpf (0-5); Squamous Epithelial Cells - UA 0-5 SEEN /hpf (5-10); White Blood Cells 5-10 SEEN /hpf (0-5)
== END | disposition home or self-care (01) ==
LOC: LAB 15:16
PROVIDERS: PCP Nurse Practitioner Family; Referring Provider Internal Medicine Endocrinology, Diabetes & Metabolism; Visit Provider Internal Medicine Endocrinology, Diabetes & Metabolism
DX: R30.0 Dysuria (principal); E10.21 Type 1 diabetes mellitus with diabetic nephropathy
CPT/HCPCS: 81001; 87086; 87088

== ENCOUNTER → 2025-03-27 | Outpatient (CLI) | payer MEDICARE, OTHER, SELFPAY ==
[2025-03-27 13:16] LABS: Creatinine, Urine (random) 47.20 mg/dL (28.00-217.00); Microalbumin,Random Urine < 12.0 mg/L (<20 mg/L)
[2025-03-27 13:29] LABS: AST(SGOT) 24 U/L (<=31); Alanine Aminotransfer ALT/SGPT 23 U/L (<=34); Albumin, Serum 4.2 g/dL (3.4-4.8); Alkaline Phosphatase 89 U/L (35-104); Anion Gap 11 (5-15); BUN 37 mg/dL (4-19); BUN/Creat Ratio 30.7 RATIO (10-20); Calcium,Total 10.0 mg/dL (7.6-11.0); Carbon Dioxide 25.2 mmol/L (21.0-32.0); Chloride 99 mmol/L (98-108); Cholesterol 194 mg/dL (<=200); Globulin 3.0 g/dL (2.2-4.2); Glucose 267 mg/dL (70-99); Low Density Lipoprotein Calc. 94 mg/dL; Potassium 4.6 mmol/L (3.3-5.1); Triglycerides 171 mg/dL; Very Low Density Lipoprotein 34 mg/dL (5-40); cholesterol:hdl ratio screen 2.74
== END | disposition home or self-care (01) ==
LOC: LAB 11:40
PROVIDERS: PCP Nurse Practitioner Family; Referring Provider Internal Medicine Endocrinology, Diabetes & Metabolism; Visit Provider Internal Medicine Endocrinology, Diabetes & Metabolism
DX: E78.2 Mixed hyperlipidemia (principal); E10.21 Type 1 diabetes mellitus with diabetic nephropathy; E10.22 Type 1 diabetes mellitus with diabetic chronic kidney disease; N18.31 Chronic kidney disease, stage 3a; E78.5 Hyperlipidemia, unspecified; I12.9 Hypertensive chronic kidney disease with stage 1 through stage 4 chronic kidney disease, or unspecified chronic kidney disease
CPT/HCPCS: 36415; 80053; 80061; 82043; 82570; 84443; 84681